=== PATIENT | female | born 1930 | race Caucasian/White ===

== ENCOUNTER 2017-01-24 16:22 | Inpatient (IN) ==
--- NOTE | 2017-01-24 16:46 | Emergency Department Note ---
Weakness HPI - General Chief complaint: Stroke Symptoms Stated complaint: weakness, altered mental status, stroke s/sx Time Seen by Provider: 01/24/17 16:43 Source: patient, EMS Mode of arrival: EMS Limitations: no limitations - History of Present Illness HPI Narrative: Patient had an episode of generalized weakness. Today, describes her as being slumped forward on the commode, they helped her back to the bed in a chair, which is not talking very much. She does state that she had a headache before this event, she denies headache now, has had no nausea, vomiting. She currently is on Bactrim for urinary tract infection and recently has had decreased appetite, not eating very much. She does take metformin for her diabetes. Denies taking insulin. No fevers today but then her legs were just like Jell-O, she had to be supported by family to get to the bed that, medics also reported decrease oxygen to saturation of 80% on seen, they do seem to be normal now on room air. She does have a history of atrial fibrillation, no history of stroke. She is on Coumadin.No history of one sided weakness no history of slurred speech, but she had decreased level of mentationfor about an hour or so earlier today. This seemed to have resolved after ambulance brought her to the emergency room. - Related Data Home Medications Medication Instructions Recorded Confirmed Atorvastatin [Lipitor] 20 mg PO HS 09/07/16 09/07/16 Digoxin [Lanoxin] 125 mcg PO DAILY 09/07/16 09/07/16 HYDROcodone/APAP 5/325MG [[place] 1 tab PO Q4HP PRN 09/07/16 09/07/16 5/325Mg] Magnesium Oxide [Magnesium] 250 mg PO DAILY 09/07/16 09/07/16 Metoprolol Tartrate 50 mg PO BID 09/07/16 09/07/16 Sulfamethoxazole/Trimethoprim 1 each PO BID 09/07/16 09/07/16 [Bactrim Ds Tablet] Tolterodine Tartrate [Detrol LA] 4 mg PO DAILY 09/07/16 09/07/16 Warfarin [Coumadin] 6 mg PO DAILY 09/07/16 09/07/16 metFORMIN [Glucophage] 500 mg PO TIDCC 09/07/16 09/07/16 Previous Rx's Medication Instructions Recorded HYDROcodone/APAP 5/325MG [[place] 1 tab PO Q4HP PRN #20 tablet 09/07/16 5/325Mg] Allergies Allergy/AdvReac Type Severity Reaction Status Date / Time No Known Drug Allergies Allergy Verified 01/24/17 16:29 Review of Systems All systems ED: reviewed and negative except as stated. Past Medical History - Past Medical History Source: nursing notes reviewed Medical history: Reports: arthritis, atrial fibrillation, diabetes, hypertension , other (uTI and compression fracture) Surgical history ED: Reports: appendectomy, cholecystectomy, hysterectomy, knee replacement, pacemaker/AICD - Social History smoking status: Never smoker Alcohol use: Reports: Rarely Physical Exam - General Limitations: no limitations General appearance: alert, in no apparent distress - Head Head exam: atraumatic, normocephalic - Eye Eye exam: Present: normal appearance, PERRL, EOMI - ENT ENT exam: normal exam, normal oropharynx, mucous membranes moist, TM's normal bilaterally - Neck Neck exam: Present: normal inspection, full ROM - Chest Chest inspection: Present: normal inspection, symmetric chest wall rise - Respiratory Respiratory exam: Present: normal lung sounds bilaterally. Absent: respiratory distress - Cardiovascular Cardiovascular exam: Present: tachycardia, irregular rhythm, normal heart sounds - Abdominal Exam Abdominal exam: Present: soft, normal bowel sounds. Absent: distention, tenderness, guarding - Extremities Exam Extremities exam: Present: normal inspection, full ROM. Absent: tenderness - Back Exam Back exam: Present: normal inspection. Absent: CVA tenderness (R), CVA tenderness (L) - Neurological Exam Neurological exam: Present: alert, oriented X3 - Psychiatric Psychiatric exam: Present: other (appears weak in general) - Skin Skin exam: Present: warm, dry, intact. Absent: rash Course Vital Signs Temperature 98.0 F 01/24/17 16:23 Pulse Rate 120 H 01/24/17 16:23 Respiratory Rate 20 01/24/17 16:23 Blood Pressure 121/77 01/24/17 16:23 Pulse Oximetry (%) 95 01/24/17 16:23 Temperature 98.7 F 01/24/17 16:52 Pulse Rate 119 H 01/24/17 18:01 Respiratory Rate 23 H 01/24/17 18:01 Blood Pressure 133/90 01/24/17 18:01 Pulse Oximetry (%) 95 01/24/17 18:01 Weakness - MDM Narrative Medical decision making narrative: Chest x-ray being read as pneumonia, left-sided, she also does have a urinary tract infection and coupled with her syncope or near syncope. This would warrant hospital admission. The. CT scan was negative for acute hemorrhage or stroke, his CBC was normal, however, her urine was still cloudy and contaminated. This was a catheter urine. Final diagnosis is #1. Resistant urinary tract infection. #2. Near syncopal episode with generalized weakness. #3. Pneumonia, left-sided. #4. History of atrial flutter/fibrillation with pacemaker in place. - Lab Data Result diagrams: 01/24/17 16:57 01/24/17 16:57 Lab Results 01/24/17 01/24/17 01/24/17 Range/Units 16:57 16:57 16:57 WBC 8.8 (4.5-11.0) K/mcL RBC 4.51 (4.00-5.20) M/mcL Hgb 13.4 (12.0-15.0) g/dL Hct 40.1 (36.0-48.0) % MCV 88.8 (80.0-100.0) fL MCH 29.7 (26.0-34.0) pg MCHC 33.4 (31.0-36.0) g/dL RDW 15.6 H (11.5-14.5) % Plt Count 273 (140-440) K/mcL MPV 8.4 (7.4-10.4) fL Gran % 74.2 (38.0-78.0) % Lymph % (Auto) 15.5 (15.5-49.0) % Snyder % (Auto) 8.8 (1.0-12.0) % Eos % (Auto) 1.0 (0.0-7.0) % Baso % (Auto) 0.5 (0.0-2.0) % Gran # 6.5 (1.8-8.0) K/mcL Lymph # 1.4 L (1.5-4.8) K/mcL Snyder # 0.8 (0.1-0.9) K/mcL Eos # 0.1 (0.0-0.7) K/mcL Baso # 0 (0.0-0.3) K/mcL ESR 40 H (0-20) mm/hr PT 29.2 H (11.9-14.5) sec INR 2.6 H (0.9-1.1) Sodium 135 (133-145) mmol/L Potassium 5.3 H (3.3-5.1) mmol/L Chloride 96 (96-108) mmol/L Carbon Dioxide 20 L (22-30) mmol/L Anion Gap 19.0 H (8-16) BUN 42 H (8-23) mg/dl Creatinine 1.2 H (0.6-1.1) mg/dl GFR Calculation 41 Glucose 116 H (70-105) mg/dL Calcium 10.9 H (8.6-10.4) mg/dl Total Bilirubin 0.3 (0.0-1.0) mg/dL AST 12 (0-37) U/l ALT 8 (0-40) U/l Alkaline Phosphatase 129 H (39-117) U/L CK-MB (CK-2) 2.5 (0-2.9) ng/ml Troponin T (0-0.03) ng/ml C-Reactive Protein 7.0 H (0.0-0.8) mg/dl Total Protein 7.3 (5.9-8.4) gm/dL Albumin 3.8 (3.2-5.2) gm/dL Globulin 3.5 (2.2-3.7) gm/dL Albumin/Globulin Ratio 1.1 (1.0-2.3) Urine Color Urine Appearance Urine pH (5.0-9.0) Ur Specific [place] (1.000-1.035) Urine Protein (NEG) mg/dL Urine Glucose (UA) (NEG) mg/dL Urine Ketones (NEG) mg/dL Urine Occult Blood (<0.03) mg/dL Urine Nitrate (NEG) Urine Bilirubin (NEG) mg/dL Urine Urobilinogen (NEG) mg/dL Ur Leukocyte Esterase (NEG) /uL Urine RBC (0-1) /hpf Urine WBC (0-4) /hpf Ur Squamous Epith Cells (0-4) /hpf Urine Bacteria (0) /hpf Ur Culture Indicated? 01/24/17 01/24/17 Range/Units 16:57 17:17 WBC (4.5-11.0) K/mcL RBC (4.00-5.20) M/mcL Hgb (12.0-15.0) g/dL Hct (36.0-48.0) % MCV (80.0-100.0) fL MCH (26.0-34.0) pg MCHC (31.0-36.0) g/dL RDW (11.5-14.5) % Plt Count (140-440) K/mcL MPV (7.4-10.4) fL Gran % (38.0-78.0) % Lymph % (Auto) (15.5-49.0) % Snyder % (Auto) (1.0-12.0) % Eos % (Auto) (0.0-7.0) % Baso % (Auto) (0.0-2.0) % Gran # (1.8-8.0) K/mcL Lymph # (1.5-4.8) K/mcL Snyder # (0.1-0.9) K/mcL Eos # (0.0-0.7) K/mcL Baso # (0.0-0.3) K/mcL ESR (0-20) mm/hr PT (11.9-14.5) sec INR (0.9-1.1) Sodium (133-145) mmol/L Potassium (3.3-5.1) mmol/L Chloride (96-108) mmol/L Carbon Dioxide (22-30) mmol/L Anion Gap (8-16) BUN (8-23) mg/dl Creatinine (0.6-1.1) mg/dl GFR Calculation Glucose (70-105) mg/dL Calcium (8.6-10.4) mg/dl Total Bilirubin (0.0-1.0) mg/dL AST (0-37) U/l ALT (0-40) U/l Alkaline Phosphatase (39-117) U/L CK-MB (CK-2) (0-2.9) ng/ml Troponin T 0.02 (0-0.03) ng/ml C-Reactive Protein (0.0-0.8) mg/dl Total Protein (5.9-8.4) gm/dL Albumin (3.2-5.2) gm/dL Globulin (2.2-3.7) gm/dL Albumin/Globulin Ratio (1.0-2.3) Urine Color Brooke Urine Appearance Cloudy Urine pH 5.0 (5.0-9.0) Ur Specific [place] 1.014 (1.000-1.035) Urine Protein 100 A (NEG) mg/dL Urine Glucose (UA) Negative (NEG) mg/dL Urine Ketones Neg (NEG) mg/dL Urine Occult Blood >=1.0 A (<0.03) mg/dL Urine Nitrate Neg (NEG) Urine Bilirubin Neg (NEG) mg/dL Urine Urobilinogen Neg (NEG) mg/dL Ur Leukocyte Esterase 75 A (NEG) /uL Urine RBC > 182 H (0-1) /hpf Urine WBC 60 H (0-4) /hpf Ur Squamous Epith Cells 0 (0-4) /hpf Urine Bacteria Mod A (0) /hpf Ur Culture Indicated? Yes Disposition Disposition: Xfer As Inpt ([facility]) Condition: Fair Referrals: Avis Kincaid MD [Primary Care Provider] -
[2017-01-24] MEDS ORDERED: LACTATED RINGERS 1,000 ML IV ONE (16:50)
[2017-01-24 17:36] LABS: Basophils # (Auto) 0 K/mcL (0.0-0.3); Basophils % (Auto) 0.5 % (0.0-2.0); Eosinophils # (Auto) 0.1 K/mcL (0.0-0.7); Granulocytes % (Auto) 74.2 % (38.0-78.0); Lymphocytes # (Auto) 1.4 K/mcL (1.5-4.8); Lymphocytes % (Auto) 15.5 % (15.5-49.0); Mean Cell Volume 88.8 fL (80.0-100.0); Mean Corpuscular HGB Conc 33.4 g/dL (31.0-36.0); Mean Corpuscular Hemoglobin 29.7 pg (26.0-34.0); Monocytes # (Auto) 0.8 K/mcL (0.1-0.9); Monocytes % (Auto) 8.8 % (1.0-12.0); Platelet Count 273 K/mcL (140-440); RBC 4.51 M/mcL (4.00-5.20); Red Cell Distribution Width 15.6 % (11.5-14.5)
--- NOTE | 2017-01-24 17:47 | XRay Report ---
CLINICAL INFORMATION: Headache. Weakness. TECHNIQUE: AP semierect chest x-ray COMPARISON: Previous examination dated 06/19/2010 FINDINGS: No change in left transvenous pacemaker leads. Dense left basilar consolidation of left pleural fluid. Appearance is consistent with pneumonia. Right lung is negative. Heart size is within normal limits considering AP positioning. There is no pulmonary congestion and no pulmonary edema. IMPRESSION: Left basilar consolidation and left pleural fluid. Findings are consistent with pneumonia. Interpreted and Authenticated by: Robbie Willis 01/24/17
[2017-01-24 17:54] LABS: Appearance,Urine CLOUDY; Bacteria,Urine MOD /hpf (0); Bilirubin,Urine NEG (NEG); Color,Urine AMBER; Glucose,Urine (UA) NEGATIVE (NEG); Leukocyte Esterase,Urine 75 /uL (NEG); Nitrate,Urine NEG (NEG); Protein,Urine 100 mg/dL (NEG); Specific Gravity,Urine 1.014 (1.000-1.035); Urine Blood >=1.0 mg/dL (<0.03); Urine RBC > 182 /hpf (0-1); Urine Squamous Epithelial Cell 0 /hpf (0-4); Urine WBC 60 /hpf (0-4); Urobilinogen,Urine NEG (NEG)
[2017-01-24 18:01] LABS: Creatine Kinase MB 2.5 ng/ml (0-2.9)
[2017-01-24 18:02] LABS: ALT/SGPT 8 U/l (0-40); Albumin 3.8 gm/dL (3.2-5.2); Albumin/Globulin Ratio 1.1 (1.0-2.3); Alkaline Phosphatase 129 U/L (39-117); Blood Urea Nitrogen 42 mg/dl (8-23)
[2017-01-24] MEDS ORDERED: cefTRIAXone 1 GM in DEXTROSE 5% IN WATER 50 ML IV ONE (18:02)
[2017-01-24 18:24] LABS: Erythrocyte Sedimentation Rate 40 mm/hr (0-20)
--- NOTE | 2017-01-24 19:25 | Internal Med History&Physical ---
Medical - H&P: HPI Patient information: Note initiated : 01/24/17 at 7:25 pm Service Date, if different from initiated Date: [] Patient: Debby Perez 86 y/o F admitted on for weakness, altered mental status, stroke s/sx. Chief Complaint: [] Chief complaint: weakness ,depressed level of consciousness, dysuria History of present illness: Ms. Perez is a 86 year old female is sent to emergency room by her and daughters. hey report that she really has not been doing very well since November of this year, when she was admitted to [facility] with compression fractures of her spine. She apparently underwent several vertebral plasty procedures, and ultimately was sent to [place] for transition care. She improved somewhat, but then apparently was diagnosed with urinary tract infection about 4 days ago, and was started on Bactrim. Her family says she really has just not been doing well since then, and has had decreased oral intake and increased fatigue This evening she was walking to dinner with her family's assistance, and suddenly just could not stand up anymore, and slid down to the floor. They report she sort of slumped over and they really couldn' t get much of a response out of her for several minutes. They then called 911. The ER M.D. reports that the ambulance crew set her initial O2 saturation was 80 % on room air. However this increased to normal by the time of arrival at the ER. ER evaluation shows pyuria and also suggestive of a left base pneumonia. She did have a CT scan of her brain which did not show any acute findings. the patient is awake, but often looks to her for answers, and seems very fatigued. She says she has not been able to get warm for the last couple of days. She also had a significant headache earlier today. She has had a cough for the last 1-2 months, which is nonproductive. Her reports every now and then she grabs the left side of her abdomen and complains of sharp pain. She reports occasional palpitations and occasional nausea. Her reports that she has alternating diarrhea and constipation, with her last bowel movement yesterday. Otherwise, they are unaware of any fever blurry vision or double vision, sinus or ear pain sore throat or swollen lymph nodes She denies overt chest pain, vomiting, rectal bleeding. She does report difficulty urinating recently. past medical history: -Admission to [facility] on December 04, 2016: istory of osteopenia and multiple compression fractures and multiple vertebral plasty's. Worsening bladder control since then. Workup also revealed severe spinal stenosis. -tachybradycardia syndrome, status post pacemaker placement with Dr. Richie Owusu Type 2 diabetes, generally controlled Hyperlipidemia Hypertension Chronic back pain Recent diagnosis urinary tract infection current medications: according to her 's list: Forteo subcutaneous every morning2 months Calcitonin nasal spray daily Bactrim DS 1 by mouth twice a day Metoprolol 50 mg twice a day Warfarin 6 mg, titrate as needed Detrol LA 4 mg daily at bedtime Digoxin 0.125 mg daily Lipitor 20 mg every afternoon Metformin 500 mg 3 times a day Magnesium 250 mg twice a day Numerous supplements: Including vitamin E, B12, B complex, oral chelation EDTA lecithin, flax oil, fish oil, vitamin C ginkgo biloba 60 mg daily, chromium, co- enzyme [id number] 1000 mg, glucosamine, vitamin D 1000 units daily, curcumin Allergies: No known drug allergies Family history: Mother and aunt both had stroke. Father had heart and/or lung disease. Social history: The patient lives with her ,in [place], [place], and is usually ambulatory, but has been quite sedentary over the last 1-2 months. She denies history of tobacco, alcohol, drug use. She has 4 children who live in the area. Medical - H&P: Meds Home Medications Medication Instructions Recorded Confirmed Type Atorvastatin [Lipitor] 20 mg PO HS 09/07/16 09/07/16 History Digoxin [Lanoxin] 125 mcg PO DAILY 09/07/16 09/07/16 History HYDROcodone/APAP 5/325MG [[place] 1 tab PO Q4HP PRN 09/07/16 09/07/16 History 5/325Mg] HYDROcodone/APAP 5/325MG [[place] 1 tab PO Q4HP PRN #20 tablet 09/07/16 Rx 5/325Mg] Magnesium Oxide [Magnesium] 250 mg PO DAILY 09/07/16 09/07/16 History Metoprolol Tartrate 50 mg PO BID 09/07/16 09/07/16 History Sulfamethoxazole/Trimethoprim 1 each PO BID 09/07/16 09/07/16 History [Bactrim Ds Tablet] Tolterodine Tartrate [Detrol LA] 4 mg PO DAILY 09/07/16 09/07/16 History Warfarin [Coumadin] 6 mg PO DAILY 09/07/16 09/07/16 History metFORMIN [Glucophage] 500 mg PO TIDCC 09/07/16 09/07/16 History Allergies Allergy/AdvReac Type Severity Reaction Status Date / Time No Known Drug Allergies Allergy Verified 01/24/17 16:29 Medical - H&P: Exam - Constitutional Vitals: Temp Pulse Resp BP Pulse Ox 98.7 F 71 23 H 133/72 95 01/24/17 16:52 01/24/17 18:46 01/24/17 18:46 01/24/17 18:46 01/24/17 18:46 on exam, she is a frail-appearing elderly female who is a bit sleepy, but is able to answer most questions. Head:Normocephalic, atraumatic. Eyes: PERRLA, EOMI, anicteric. IOLs are present. conjunctiva normal. ears:TMs and canals are clear. pharynx: Appears clear. Teeth are in good repair. Mucosa is dry. neck: Appears supple, without obvious lymphadenopathy, JVD, thyromegaly, bruits. Cardiac: Shows an irregularly irregular rhythm, without obvious murmurs, rubs, gallops. Lungs: Have somewhat decreased breath sounds at the bases, but otherwise are clear, without obvious rales, rhonchi, wheezes. Abdomen: Soft and nontender. Bowel sounds are active. There are no obvious masses. Extremities: Show no cyanosis, clubbing, edema. Pulses are intact. Neurologic exam: The patient is awake, but somewhat sleepy. She does follow commands. She appears fully oriented. Cranial nerves are grossly intact. Motor exam is grossly nonfocal. Skin: Shows no obvious rashes or other worrisome lesions. Medical - H&P: Reslt - Labs CBC & Chem 7: 01/24/17 16:57 01/24/17 16:57 Labs: Short CBC 01/24/17 Range/Units 16:57 WBC 8.8 (4.5-11.0) K/mcL Hgb 13.4 (12.0-15.0) g/dL Hct 40.1 (36.0-48.0) % Plt Count 273 (140-440) K/mcL BMP 01/24/17 16:57 Sodium 135 Potassium 5.3 H Chloride 96 Carbon Dioxide 20 L BUN 42 H Creatinine 1.2 H Glucose 116 H Calcium 10.9 H Cardiac Enzymes 01/24/17 01/24/17 Range/Units 16:57 16:57 CK-MB (CK-2) 2.5 (0-2.9) ng/ml Troponin T 0.02 (0-0.03) ng/ml Liver Function 01/24/17 Range/Units 16:57 Total Bilirubin 0.3 (0.0-1.0) mg/dL AST 12 (0-37) U/l ALT 8 (0-40) U/l Alkaline Phosphatase 129 H (39-117) U/L Albumin 3.8 (3.2-5.2) gm/dL Urine 01/24/17 Range/Units 17:17 Urine Color Brooke Urine Appearance Cloudy Urine pH 5.0 (5.0-9.0) Ur Specific [place] 1.014 (1.000-1.035) Urine Protein 100 A (NEG) mg/dL Urine Glucose (UA) Negative (NEG) mg/dL urinalysis shows 100 mg of protein 75 leukocyte esterase, greater than 182 red blood cells, 60 white blood cells, moderate bacteria CBC differentialis essentially normal, although absolute lymphocyte count is a bit low at 1400. sedimentation rate is high at 40 Pro time is 29, with INR of 2.6 anion gap is elevated at 19 Total calcium is elevated at 10.9, alkaline phosphatase elevated at 129 EKG shows atrial fibrillation at a rate of 124, right ventral branch block, left posterior fascicular block head CT is reported as showing no acute disease. chest x-ray shows dense left basilar consolidation with left pleural fluid consistent with pneumonia. CT scan from December 03, 2016: Shows vertebroplasty changes of T10, T12, L2, L3, L4. Severe spinal canal stenosis at L3-4 and L4-5 Vertebral body compression fracture at L5 Medical - H&P: A/P (1) SIRS (systemic inflammatory response syndrome) Current visit: Yes Status: Acute (2) Spinal stenosis at L4-L5 level Current visit: Yes Status: Chronic (3) Compression fracture Current visit: Yes Status: Chronic (4) Atrial fibrillation Current visit: Yes Status: Chronic (5) Anticoagulation adequate with anticoagulant therapy Current visit: Yes Status: Chronic (6) Acute renal failure Current visit: Yes Status: Acute (7) Type 2 diabetes mellitus Current visit: Yes Status: Chronic (8) Altered mental status Current visit: Yes Status: Acute (9) Pneumonia Current visit: Yes Status: Acute (10) Compression fracture Current visit: No Status: Chronic - Narrative A/P Narrative: #1. Neurologic. patient presents with altered mental status, which is likely due to dehydration and general failure to thrive over the last [address] is negative. -Continue to monitor. -it is unclear if some of her current decline may be due to intolerance of Bactrim. #2. Infectious disease. patient meets criteria for SIRS syndrome. She appears to have both pneumonia and ongoing urinary tract infection. -admit for IV fluids, IV antibiotics. Empiric coverage with Zosyn and Zithromax to cover lungs and bladder. -blood, urine, and sputum cultures have been ordered. #3.pulmonary. Apparent pneumonia. she did initially have hypoxia, but this has improved. Antibiotics as above. Add bronchodilators, oxygen, incentive spirometry as needed. #4.endocrine. -type 2 diabetes. Metformin is on hold, regarding her acute renal insufficiency. Cover with sliding scale insulin, Accu-Cheks. -osteoporosis. Numerous compression fractures, status post vertebral plasty's. Continue Forteo, calcitonin, calcium vitamin D. The patient apparently does not tolerate narcotics. Continue Tylenol. Add tramadol or Lidoderm or muscle relaxers if needed. #5. Renal. patient presents with acute renal insufficiency. This is likely due to dehydration as well as possible ongoing urinary tract infection, and possible Bactrim side effect, and injury due to metformin. -IV fluids. Follow labs. -hyperkalemia. Follow. -hypercalcemia, recheck after hydration. -Metabolic acidosis likely aggravated by metformin. 36. Pain. The patient does have chronic back pain, as noted above. She also reportedly has occasional severe sharp left-sided abdominal pain. I suspect this is due to nerve root irritation from numerous compression fractures , but we could consider abdominal x-ray, to rule out constipation. #7. Cardiac. -atrial fibrillation. 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 Continue metoprolol ,digoxin as tolerated. check digoxin level. -INR is therapeutic. Continue warfarin. -hypertension.Controlled. Continue metoprolol. #8.hyperlipidemia. #9. DVT prophylaxis: Continue warfarin. Add SCDs. 310. CODE STATUS:Full code. The patient and her family note that she does not have a living will. Her has her medical power of employment law attorney. They would like her to be full code for now. This visit has taken approximately 75 minutes, to obtain and review records from [facility], review her case with the LISA Howell, interview the patient and her family, examined her, and write orders.
[2017-01-24] MEDS ORDERED: NALOXONE HCL 0.4 MG/ML VIAL IV PRN (19:53)
[2017-01-24] MEDS ORDERED: MAGNESIUM HYDROXIDE 30 ML ORAL.SUSP PO PRN (19:53)
[2017-01-24] MEDS ORDERED: PIPERACILLIN SODIUM/TAZOBACTAM 3.375 GM in DEXTROSE 5% IN WATER 50 ML IV SCH (19:53)
[2017-01-24] MEDS ORDERED: DEXTROSE 50% 50 ML VIAL IV PRN (19:53)
[2017-01-24] MEDS ORDERED: DOCUSATE SODIUM 100 MG CAPSULE PO PRN (19:53)
[2017-01-24] MEDS ORDERED: ONDANSETRON 4 MG/2 ML VIAL IV PRN (19:53)
[2017-01-24] MEDS ORDERED: HYDROcodone/APAP 5/325MG TABLET PO PRN (19:53)
[2017-01-24] MEDS ORDERED: CALCIUM CARBONATE 500 MG TAB.CHEW CHEWED PRN (19:53)
[2017-01-24] MEDS ORDERED: ALBUTEROL SULFATE 2.5 MG/3 ML NEBULIZER NEB PRN (19:53)
[2017-01-24] MEDS: 0.45 % SODIUM CHLORIDE 1,000 ML IV SCH (19:56)
[2017-01-24] MEDS: ACETAMINOPHEN 325 MG TABLET PO PRN (21:32)
[2017-01-24] MEDS: INSULIN LISPRO 1 UNIT/0.01 ML UNIT SQ SCH (21:33)
[2017-01-24] MEDS: METOPROLOL TARTRATE 50 MG TABLET PO SCH (21:33)
[2017-01-24] MEDS: 0.9 % SODIUM CHLORIDE 10 ML SYRINGE IV SCH (22:02)
[2017-01-24] MEDS: AZITHROMYCIN 500 MG in DEXTROSE 5% IN WATER 250 ML IV SCH (22:16)
[2017-01-25] MEDS: ALBUTEROL SULFATE 2.5 MG/3 ML NEBULIZER NEB SCH ×4 (01:29→20:00)
[2017-01-25] MEDS ORDERED: PIPERACILLIN SODIUM/TAZOBACTAM 2.25 GM VIAL IV ONE (03:05)
[2017-01-25] MEDS: PIPERACILLIN SODIUM/TAZOBACTAM 2.25 GM in DEXTROSE 5% IN WATER 50 ML IV SCH ×4 (03:08→21:58)
[2017-01-25 05:41] LABS: Basophils # (Auto) 0 K/mcL (0.0-0.3); Basophils % (Auto) 0.6 % (0.0-2.0); Eosinophils # (Auto) 0.2 K/mcL (0.0-0.7); Granulocytes % (Auto) 64.3 % (38.0-78.0); Lymphocytes # (Auto) 1.5 K/mcL (1.5-4.8); Lymphocytes % (Auto) 20.3 % (15.5-49.0); Mean Corpuscular HGB Conc 34.7 g/dL (31.0-36.0); Mean Corpuscular Hemoglobin 31.9 pg (26.0-34.0); Monocytes # (Auto) 0.9 K/mcL (0.1-0.9); Monocytes % (Auto) 11.8 % (1.0-12.0); Platelet Count 208 K/mcL (140-440); RBC 3.53 M/mcL (4.00-5.20); Red Cell Distribution Width 15.3 % (11.5-14.5)
[2017-01-25 06:04] LABS: ALT/SGPT 7 U/l (0-40); Albumin 3.4 gm/dL (3.2-5.2); Albumin/Globulin Ratio 1.4 (1.0-2.3); Alkaline Phosphatase 101 U/L (39-117); Bilirubin,Direct < 0.2 mg/dL (0.0-0.3); Blood Urea Nitrogen 35 mg/dl (8-23); Gamma Glutamyl Transpeptidase 30 U/L (5-36); Magnesium 1.1 mg/dL (1.6-2.5); Uric Acid 6.4 mg/dL (2.5-8.0)
[2017-01-25] MEDS: 0.9 % SODIUM CHLORIDE 10 ML SYRINGE IV SCH ×3 (06:24→21:59)
[2017-01-25] MEDS: 0.45 % SODIUM CHLORIDE 1,000 ML IV SCH ×2 (06:59→09:06)
[2017-01-25] MEDS: INSULIN LISPRO 1 UNIT/0.01 ML UNIT SQ SCH ×4 (07:13→20:36)
[2017-01-25] MEDS ORDERED: LIDOCAINE PATCH TOPICAL PRN (08:45)
[2017-01-25] MEDS ORDERED: METOPROLOL TARTRATE 50 MG PO SCH (09:00)
[2017-01-25] MEDS ORDERED: MAGNESIUM SULFATE 8.12 MEQ in DEXTROSE 5% IN WATER 50 ML IV ONE (09:00)
[2017-01-25] MEDS: MAGNESIUM OXIDE 400 MG TABLET PO SCH (09:07)
[2017-01-25] MEDS: CALCIUM W/VIT D3 500 MG TABLET PO SCH (09:07)
[2017-01-25] MEDS: METOPROLOL TARTRATE 50 MG TABLET PO SCH ×2 (09:07→20:52)
[2017-01-25] MEDS: VITAMIN D3 1,000 UNIT TABLET PO SCH ×2 (09:07→20:52)
[2017-01-25] MEDS: VITAMIN B COMPLEX 1 CAPSULE PO SCH (09:07)
[2017-01-25] MEDS: NEUTRA PHOS 1 PACKET PO SCH ×2 (11:05→20:52)
--- NOTE | 2017-01-25 11:06 | Internal Med Progress Note ---
Medical - PN: Subj Patient information: Note initiated : 01/25/17 at 11:06 am Service Date, if different from initiated Date: [] Patient: Debby Perez 86 y/o F admitted on 01/24/17 for weakness, altered mental status, stroke s/sx. Chief Complaint: [] Interval history: January 24, 2017:Chief complaint: weakness ,depressed level of consciousness, dysuria History of present illness: Ms. Perez is a 86 year old female is sent to emergency room by her and daughters. hey report that she really has not been doing very well since November of this year, when she was admitted to [facility] with compression fractures of her spine. She apparently underwent several vertebral plasty procedures, and ultimately was sent to [place] for transition care. She improved somewhat, but then apparently was diagnosed with urinary tract infection about 4 days ago, and was started on Bactrim. Her family says she really has just not been doing well since then, and has had decreased oral intake and increased fatigue This evening she was walking to dinner with her family's assistance, and suddenly just could not stand up anymore, and slid down to the floor. They report she sort of slumped over and they really couldn' t get much of a response out of her for several minutes. They then called 911. The ER M.D. reports that the ambulance crew set her initial O2 saturation was 80 % on room air. However this increased to normal by the time of arrival at the ER. ER evaluation shows pyuria and also suggestive of a left base pneumonia. She did have a CT scan of her brain which did not show any acute findings. the patient is awake, but often looks to her for answers, and seems very fatigued. She says she has not been able to get warm for the last couple of days. She also had a significant headache earlier today. She has had a cough for the last 1-2 months, which is nonproductive. Her reports every now and then she grabs the left side of her abdomen and complains of sharp pain. She reports occasional palpitations and occasional nausea. Her reports that she has alternating diarrhea and constipation, with her last bowel movement yesterday. January 25, 2017: today, the patient is feeling quite a bit better. granddaughter and Staff reports that she was able to walk to the shower today, and also ate a pretty large breakfast. The patient reports she still feels significant fatigue , but definitely better than yesterday. -she denies significant current pain. She did take Tylenol with breakfast. -she does not report any obvious bleeding, regarding her elevated INR. -bNP was quite elevated yesterday but the patient denies significant shortness of breath.- -Otherwise, the patient denies subjective fever or chills, chest pain or palpitations, shortness of breath or significant cough. She denies current abdominal pain, nausea or vomiting or diarrhea She continues to have urinary frequency and incontinence. - Constitutional Vitals: Vital Signs Temp Pulse Resp BP Pulse Ox 97.2 F 77 10 L 143/83 94 01/25/17 06:51 01/25/17 07:32 01/25/17 07:32 01/25/17 06:51 01/25/17 07:47 Period Temp Pulse Resp BP Sys/[place] Pulse Ox Last 24 Hr 97.2 F-98.7 F 71-80 10-24 123-143/72-83 94-97 Intake and Output 01/24/17 01/25/17 01/25/17 21:59 05:59 13:59 Intake Total 50 / 1100 1350 / 1350 290 / 290 Output Total 676 / 676 Balance 50 / 1100 1350 / 1350 -386 / -386 Weight 112 lb Intake & Output: Intake & Output 01/24/17 01/25/17 01/25/17 21:59 05:59 13:59 Intake Total 50 / 1100 1350 / 1350 290 / 290 Output Total 676 / 676 Balance 50 / 1100 1350 / 1350 -386 / -386 Weight 112 lb Intake: IV 50 / 50 1250 / 1250 50 / 50 Sodium Chloride 0.45% 1, 1000 / 1000 000 ml @ 125 mls/hr IV . Q8H [facility] Rx#:[id number] Zithromax 500 mg In 250 / 250 Dextrose 5% in Water 250 ml @ 250 mls/hr IV DAILY [facility] Rx#:[id number] Zosyn 2.25 gm In Dextrose 50 / 50 5% in Water 50 ml @ 100 mls/hr IV Q6H [facility] Rx#: [id number] Zosyn 3.375 gm In 50 / 50 Dextrose 5% in Water 50 ml @ 100 mls/hr IV Q6H [facility] Rx#:[id number] Oral 100 / 100 240 / 240 Output: Void Amount 675 / 675 # of times incontinent of 1 / 1 urine Other: Meal Soup and crackers Breakfast Percent of Meal Consumed 100% 50% Feeding Ability Assist with Tray Set Up Independent on exam, she is a frail appearing elderly female, in no acute distress. She is much more interactive this morning. Neck shows obvious JVD or lymphadenopathy. Cardiac exam:Shows a fairly regular rhythm with normal rate. Lungs: Show decreased breath soundsat the left base and otherwise lungs are clear, without obvious rales rhonchi, wheezes. Abdomen: Is soft and nontender with normal bowel sounds. Extremities: Show no edema. Neurologic: the patient is awake and alert. neuro exam is grossly nonfocal. Medical - PN: Obj Da - Labs CBC & Chem 7: 01/25/17 04:30 01/25/17 04:30 Labs: Abnormal Lab Results 01/25/17 01/25/17 01/25/17 04:30 04:30 04:30 RBC 3.53 L Hgb 11.3 L Hct 32.5 L RDW 15.3 H PT 34.5 H INR 3.3 H Carbon Dioxide 21 L BUN 35 H Phosphorus 2.3 L Magnesium 1.1 L january 25:Urine culture is growing gram-negative bacilli and ID pending January 24, 2017: BNP elevated at 2204 urinalysis shows 100 mg of protein 75 leukocyte esterase, greater than 182 red blood cells, 60 white blood cells, moderate bacteria CBC differential is essentially normal, although absolute lymphocyte count is a bit low at 1400. sedimentation rate is high at 40 Pro time is 29, with INR of 2.6 anion gap is elevated at 19 Total calcium is elevated at 10.9, alkaline phosphatase elevated at 129 EKG shows atrial fibrillation at a rate of 124, right ventral branch block, left posterior fascicular block head CT is reported as showing no acute disease. chest x-ray shows dense left basilar consolidation with left pleural fluid consistent with pneumonia. CT scan from December 03, 2016: Shows vertebroplasty changes of T10, T12, L2, L3, L4. Severe spinal canal stenosis at L3-4 and L4-5 Vertebral body compression fracture at L5 Meds: Medications Acetaminophen (Tylenol) 650 mg PO Q6HP PRN PRN Reason: PAIN/FEVER > 101 Last Admin: 01/24/17 21:32 Dose: 650 mg Acetaminophen/Hydrocodone Bitart ([place] 5/325mg) 1 tab PO Q4HP PRN PRN Reason: Pain Albuterol Sulfate (Ventolin) 2.5 mg NEB Q2HP PRN PRN Reason: Shortness Of Breath Albuterol Sulfate (Ventolin) 2.5 mg NEB Q6HRT [facility] Last Admin: 01/25/17 07:27 Dose: 2.5 mg Atorvastatin Calcium (Lipitor) 20 mg PO HS [facility] Calcitonin [place] (Miacalcin) 1 spray NS DAILY [facility] Calcium Carbonate/Glycine (Tums) 1,000 mg CHEWED Q4HP PRN PRN Reason: Dyspepsia Calcium/Vitamin D (Calcium W/Vit D3) 500 mg PO DAILY [facility] Last Admin: 01/25/17 09:07 Dose: 500 mg Dextrose (Dextrose 50%) 0 ml IV UD PRN PRN Reason: Hypoglycemia Diagnostic Test (Pha) (Accu-Chek) 1 each FS ACHS [facility] Last Admin: 01/25/17 07:13 Dose: 1 each Docusate Sodium (Colace) 100 mg PO BID PRN PRN Reason: Constipation Azithromycin 500 mg/ Dextrose 250 mls @ 250 mls/hr IV DAILY [facility] Stop: 01/26/17 09:59 Last Infusion: 01/24/17 23:20 Dose: Infused Piperacillin Sod/Tazobactam (Sod 2.25 gm/ Dextrose) 50 mls @ 100 mls/hr IV Q6H [facility] Last Infusion: 01/25/17 09:40 Dose: Infused Sodium Chloride (Sodium Chloride 0.45%) 1,000 mls @ 50 mls/hr IV .Q20H [facility] Last Admin: 01/25/17 09:06 Dose: Not Given Insulin Human Lispro (Humalog) 0 unit SQ ACHS [facility] PRN Reason: Protocol Last Admin: 01/25/17 07:13 Dose: Not Given Lidocaine (Lidoderm) 0 patch TOPICAL DAILY@1000 PRN PRN Reason: Pain Magnesium Hydroxide (Milk Of Magnesia) 30 ml PO DAILYP PRN PRN Reason: Constipation Magnesium Oxide (Magnesium Oxide) 400 mg PO DAILY [facility] Last Admin: 01/25/17 09:07 Dose: 400 mg Metoprolol Tartrate (Lopressor) 50 mg PO BID [facility] Last Admin: 01/25/17 09:07 Dose: 50 mg Naloxone HCl (Narcan) 0.1 mg IV Q2MIN PRN PRN Reason: Opiate Reversal Ondansetron HCl (Zofran) 4 mg IV Q6HP PRN PRN Reason: Nausea And Vomiting Potassium/Phosphorus/Sodium (Neutra Phos) 1 packet PO BID [facility] Last Admin: 01/25/17 11:05 Dose: 1 packet Sodium Chloride (Saline Flush) 10 ml IV Q8 [facility] Last Admin: 01/25/17 06:24 Dose: Not Given Vitamin B Complex (Vitamin B Complex) 1 cap PO DAILY [facility] Last Admin: 01/25/17 09:07 Dose: 1 cap Vitamin D (Vitamin D3) 1,000 unit PO BID [facility] Last Admin: 01/25/17 09:07 Dose: 1,000 unit Medical - PN: A/P - Time Spent With Patient Total time spent is greater than 50% in coordination of care (as documented) at patient's floor/unit and/or counseling patient: (1) SIRS (systemic inflammatory response syndrome) Status: Acute Current Visit: Yes (2) Spinal stenosis at L4-L5 level Status: Chronic Current Visit: Yes (3) Compression fracture Status: Chronic Current Visit: Yes (4) Atrial fibrillation Status: Chronic Current Visit: Yes (5) Anticoagulation adequate with anticoagulant therapy Status: Chronic Current Visit: Yes (6) Acute renal failure Status: Acute Current Visit: Yes (7) Type 2 diabetes mellitus Status: Chronic Current Visit: Yes (8) Altered mental status Status: Acute Current Visit: Yes (9) Pneumonia Status: Acute Current Visit: Yes (10) Compression fracture Status: Chronic Current Visit: No - Narrative A/P Narrative: #1. Neurologic. patient presents with altered mental status, which is likely due to dehydration and general failure to thrive over the last [address] is negative. -Mental status is much improved today. #2. Infectious disease. patient meets criteria for SIRS syndrome. She appears to have both pneumonia and ongoing urinary tract infection. -admit for IV fluids, IV antibiotics. Empiric coverage with Zosyn and Zithromax to cover lungs and bladder. -blood, urine, and sputum cultures have been ordered. -she is afebrile,with normal white blood cell count. Vital signs have returned to normal. Continue empiric antibiotics for pneumonia and UTI. Cultures are pending. #3.pulmonary. Apparent LLL pneumonia. she did initially have hypoxia, but this has improved. Antibiotics as above. continue bronchodilators, oxygen, incentive spirometry as needed. #4.endocrine. -type 2 diabetes. Metformin is on hold, regarding her acute renal insufficiency. Cover with sliding scale insulin, Accu-Cheks. -osteoporosis. Numerous compression fractures, status post vertebral plasty's. Continue Forteo, calcitonin, calcium vitamin D. The patient apparently does not tolerate narcotics. Continue Tylenol. Add tramadol or Lidoderm or muscle relaxers if needed. -she denies significant pain today. #5. Renal. patient presents with acute renal insufficiency. This is likely due to dehydration as well as possible ongoing urinary tract infection, and possible Bactrim side effect, and injury due to metformin. -labs are significantly improved today. Continue IV fluids, encourage increased oral intake. Metabolic acidosis has resolved. 36. Pain. The patient does have chronic back pain, as noted above. She also reportedly has occasional severe sharp left-sided abdominal pain. I suspect this is due to nerve root irritation from numerous compression fractures , but we could consider abdominal x-ray, to rule out constipation. -she denies abdominal pain today. #7. Cardiac. -atrial fibrillation. 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 Continue metoprolol ,digoxin as tolerated. -digoxin level was elevated, so this is on hold. heart rate is currently well controlled. -iNR was elevated, likely due to Bactrim and poor nutrition. This is also on hold. -hypertension.Controlled. Continue metoprolol. #8.hyperlipidemia. #9. DVT prophylaxis: Continue warfarin as needed to maintain therapeutic INR.. Added SCDs. 310. CODE STATUS:Full code. The patient and her family note that she does not have a living will. 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 They would like her to be full code for now. Today's visit took approximately 30 minutes to review test results, review status and plan of care with the patient's granddaughter and then with patient' s who arrived later, interview and examine the patient, and write orders. Medical - PN: Qual - VTE Deep Vein Thrombosis/Pulmonary Embolism Present on Admission: No
[2017-01-25] MEDS: CALCITONIN NASAL SPRAY 3.7ML BOTTLE NS SCH (11:25)
[2017-01-25] MEDS: FORTEO SC SCH ×2 (11:55→13:20)
[2017-01-25] MEDS: AZITHROMYCIN 500 MG in DEXTROSE 5% IN WATER 250 ML IV SCH (15:46)
[2017-01-25] MEDS: ACETAMINOPHEN 325 MG TABLET PO PRN (20:51)
[2017-01-25] MEDS: ATORVASTATIN 20 MG TABLET PO SCH (20:52)
[2017-01-26] MEDS: ALBUTEROL SULFATE 2.5 MG/3 ML NEBULIZER NEB SCH ×3 (02:39→12:59)
[2017-01-26] MEDS: 0.45 % SODIUM CHLORIDE 1,000 ML IV SCH (02:49)
[2017-01-26] MEDS: PIPERACILLIN SODIUM/TAZOBACTAM 2.25 GM in DEXTROSE 5% IN WATER 50 ML IV SCH ×4 (03:45→17:47)
[2017-01-26] MEDS: 0.9 % SODIUM CHLORIDE 10 ML SYRINGE IV SCH ×3 (05:49→22:04)
[2017-01-26 08:08] LABS: Basophils # (Auto) 0 K/mcL (0.0-0.3); Basophils % (Auto) 0.7 % (0.0-2.0); Eosinophils # (Auto) 0.2 K/mcL (0.0-0.7); Eosinophils % (Auto) 2.3 % (0.0-7.0); Granulocytes % (Auto) 64.8 % (38.0-78.0); Lymphocytes # (Auto) 1.4 K/mcL (1.5-4.8); Lymphocytes % (Auto) 20.7 % (15.5-49.0); Mean Corpuscular HGB Conc 34.1 g/dL (31.0-36.0); Mean Corpuscular Hemoglobin 31.4 pg (26.0-34.0); Monocytes # (Auto) 0.8 K/mcL (0.1-0.9); Monocytes % (Auto) 11.5 % (1.0-12.0); Platelet Count 231 K/mcL (140-440); Red Cell Distribution Width 15.7 % (11.5-14.5)
[2017-01-26] MEDS: INSULIN LISPRO 1 UNIT/0.01 ML UNIT SQ SCH ×4 (08:10→22:03)
[2017-01-26] MEDS: ACETAMINOPHEN 325 MG TABLET PO PRN ×2 (08:10→18:13)
[2017-01-26 08:32] LABS: ALT/SGPT 7 U/l (0-40); Albumin 3.3 gm/dL (3.2-5.2); Albumin/Globulin Ratio 1.1 (1.0-2.3); Alkaline Phosphatase 111 U/L (39-117); Bilirubin,Direct < 0.2 mg/dL (0.0-0.3); Blood Urea Nitrogen 21 mg/dl (8-23); Gamma Glutamyl Transpeptidase 31 U/L (5-36); Magnesium 1.4 mg/dL (1.6-2.5); Uric Acid 4.8 mg/dL (2.5-8.0)
[2017-01-26] MEDS: VITAMIN D3 1,000 UNIT TABLET PO SCH ×3 (09:30→22:04)
[2017-01-26] MEDS: FORTEO SC SCH ×2 (09:30→09:50)
[2017-01-26] MEDS: CALCIUM W/VIT D3 500 MG TABLET PO SCH ×2 (09:30→09:50)
[2017-01-26] MEDS: VITAMIN B COMPLEX 1 CAPSULE PO SCH ×2 (09:30→09:50)
[2017-01-26] MEDS: MAGNESIUM OXIDE 400 MG TABLET PO SCH ×2 (09:30→09:50)
[2017-01-26] MEDS: METOPROLOL TARTRATE 50 MG TABLET PO SCH ×3 (09:30→22:03)
[2017-01-26] MEDS: AZITHROMYCIN 500 MG in DEXTROSE 5% IN WATER 250 ML IV SCH ×2 (09:30→09:50)
[2017-01-26] MEDS: CALCITONIN NASAL SPRAY 3.7ML BOTTLE NS SCH (09:39)
--- NOTE | 2017-01-26 10:39 | Cat Scan Report ---
CLINICAL INFORMATION: Headache. Patient is on Coumadin. COMPARISON: None. TECHNIQUE: Axial noncontrast-enhanced images through the brain. FINDINGS: No acute intracranial hemorrhage. No subdural hematoma. No subarachnoid hemorrhage. No intra-axial hemorrhage. No acute intra-axial attenuation abnormality. No localized mass effect. No midline shift. 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 This is not acute. There is age appropriate cerebral atrophy with prominent superficial subarachnoid spaces and ventricular system. Basilar cisterns are normal. No calvarial fracture. Temporal bones are negative. IMPRESSION: No acute abnormality. Interpreted and Authenticated by: Robbie Willis 01/24/17
[2017-01-26] MEDS: NEUTRA PHOS 1 PACKET PO SCH ×2 (12:08→22:04)
--- NOTE | 2017-01-26 12:41 | Internal Med Progress Note ---
Medical - PN: Subj Patient information: Note initiated : 01/26/17 at 12:41 pm Service Date, if different from initiated Date: [] Patient: Debby Perez 86 y/o F admitted on 01/24/17 for Weakness, Altered Mental Status, Stroke Symptoms. Interval history: January 24, 2017:Chief complaint: weakness ,depressed level of consciousness, dysuria History of present illness: Ms. Perez is a 86 year old female is sent to emergency room by her and daughters. hey report that she really has not been doing very well since November of this year, when she was admitted to [facility] with compression fractures of her spine. She apparently underwent several vertebral plasty procedures, and ultimately was sent to [place] for transition care. She improved somewhat, but then apparently was diagnosed with urinary tract infection about 4 days ago, and was started on Bactrim. Her family says she really has just not been doing well since then, and has had decreased oral intake and increased fatigue This evening she was walking to dinner with her family's assistance, and suddenly just could not stand up anymore, and slid down to the floor. They report she sort of slumped over and they really couldn' t get much of a response out of her for several minutes. They then called 911. The ER M.D. reports that the ambulance crew set her initial O2 saturation was 80 % on room air. However this increased to normal by the time of arrival at the ER. ER evaluation shows pyuria and also suggestive of a left base pneumonia. She did have a CT scan of her brain which did not show any acute findings. the patient is awake, but often looks to her for answers, and seems very fatigued. She says she has not been able to get warm for the last couple of days. She also had a significant headache earlier today. She has had a cough for the last 1-2 months, which is nonproductive. Her reports every now and then she grabs the left side of her abdomen and complains of sharp pain. She reports occasional palpitations and occasional nausea. Her reports that she has alternating diarrhea and constipation, with her last bowel movement yesterday. January 25, 2017: today, the patient is feeling quite a bit better. granddaughter and Staff reports that she was able to walk to the shower today, and also ate a pretty large breakfast. The patient reports she still feels significant fatigue , but definitely better than yesterday. -she denies significant current pain. She did take Tylenol with breakfast. -she does not report any obvious bleeding, regarding her elevated INR. -bNP was quite elevated yesterday but the patient denies significant shortness of breath.- -Otherwise, the patient denies subjective fever or chills, chest pain or palpitations, shortness of breath or significant cough. She denies current abdominal pain, nausea or vomiting or diarrhea She continues to have urinary frequency and incontinence. january 26, 2017; today,he patient is feeling even better than yesterday.she is still fatigued but was able to get up and walk, and data good breakfast. nurses report that last night, after using the commode, they noted she had vaginal prolapse which she has had for some time. -She denies subjective fever or chills. She has minimal cough, and denies shortness of breath. She has been working with her incentive spirometer. She denies chest pain or palpitations abdominal pain, nausea or vomiting. she denies significant dysuria. She did have loose stools today, but admits she ate several prunes yesterday. She had some minor back pain this morning, but took Tylenol and that resolved. -her family had lots of questions, including what could be done about her recurrent urinary tract infections. -she does have chronic atrial fibrillation, and rate is quite variable running in the 120sintermittently during the night. Her digoxin has been on holdbecause of initially supratherapeutic therapeutic levels. She does have a pacemaker, and is followed by cardiology. - Constitutional Vitals: Vital Signs Temp Pulse Resp BP Pulse Ox 98.3 F 108 H 16 93/64 96 01/26/17 11:51 01/26/17 11:51 01/26/17 11:51 01/26/17 11:51 01/26/17 11:51 Period Temp Pulse Resp BP Sys/[place] Pulse Ox Last 24 Hr 97.6 F-98.5 F 75-127 14-28 93-126/54-82 93-96 Intake and Output 01/25/17 01/26/17 01/26/17 21:59 05:59 13:59 Intake Total 1040 / 1040 200 / 200 450 / 450 Output Total 575 / 575 450 / 450 Balance 465 / 465 200 / 200 0 / 0 Weight 112 lb Intake & Output: Intake & Output 01/25/17 01/26/17 01/26/17 21:59 05:59 13:59 Intake Total 1040 / 1040 200 / 200 450 / 450 Output Total 575 / 575 450 / 450 Balance 465 / 465 200 / 200 0 / 0 Weight 112 lb Intake: IV 300 / 300 100 / 100 50 / 50 Zithromax 500 mg In 250 / 250 Dextrose 5% in Water 250 ml @ 250 mls/hr IV DAILY [facility] Rx#:[id number] Zosyn 2.25 gm In Dextrose 50 / 50 100 / 100 50 / 50 5% in Water 50 ml @ 100 mls/hr IV Q6H [facility] Rx#: [id number] Oral 740 / 740 100 / 100 400 / 400 Output: Void Amount 575 / 575 450 / 450 Other: Meal Dinner Breakfast Percent of Meal Consumed 25% 100% # Voids 1 1 1 on exam, she is a frail appearing elderly female, in no acute distress. She is sleeping when I entered the room,but awakens to be alert and smiling. She denies any pain currently. Neck shows obvious JVD or lymphadenopathy. Cardiac exam:Shows a fairly regular rhythm with normal rate. Lungs: Show decreased breath sounds at the left base and otherwise lungs are clear, without obvious rales rhonchi, wheezes. Abdomen: Is soft and nontender with normal bowel sounds. Extremities: Show no edema. Neurologic: the patient is awake and alert. neuro exam is grossly nonfocal. Medical - PN: Obj Da - Labs CBC & Chem 7: 01/26/17 05:57 01/26/17 05:57 Labs: Abnormal Lab Results 01/26/17 01/26/17 01/26/17 05:57 05:57 05:57 RBC 3.80 L Hgb 11.9 L Hct 34.9 L RDW 15.7 H Lymph # 1.4 L PT 30.7 H INR 2.8 H Carbon Dioxide BUN Glucose 141 H Phosphorus Magnesium 1.4 L 01/25/17 01/25/17 01/25/17 04:30 04:30 04:30 RBC 3.53 L Hgb 11.3 L Hct 32.5 L RDW 15.3 H Lymph # PT 34.5 H INR 3.3 H Carbon Dioxide 21 L BUN 35 H Glucose Phosphorus 2.3 L Magnesium 1.1 L January 26: - urine culture from February 01 is growing Escherichia coli, greater than 100,000, resistant to tetracycline and Bactrim, but otherwise pansensitive. -blood cultures are negative so far. january 25:Urine culture is growing gram-negative bacilli and ID pending January 24, 2017: BNP elevated at 2204 urinalysis shows 100 mg of protein 75 leukocyte esterase, greater than 182 red blood cells, 60 white blood cells, moderate bacteria CBC differential is essentially normal, although absolute lymphocyte count is a bit low at 1400. sedimentation rate is high at 40 Pro time is 29, with INR of 2.6 anion gap is elevated at 19 Total calcium is elevated at 10.9, alkaline phosphatase elevated at 129 EKG shows atrial fibrillation at a rate of 124, right ventral branch block, left posterior fascicular block head CT is reported as showing no acute disease. chest x-ray shows dense left basilar consolidation with left pleural fluid consistent with pneumonia. CT scan from December 03, 2016: Shows vertebroplasty changes of T10, T12, L2, L3, L4. Severe spinal canal stenosis at L3-4 and L4-5 Vertebral body compression fracture at L5 Meds: Medications Acetaminophen (Tylenol) 650 mg PO Q6HP PRN PRN Reason: PAIN/FEVER > 101 Last Admin: 01/26/17 08:10 Dose: 650 mg Acetaminophen/Hydrocodone Bitart ([place] 5/325mg) 1 tab PO Q4HP PRN PRN Reason: Pain Albuterol Sulfate (Ventolin) 2.5 mg NEB Q2HP PRN PRN Reason: Shortness Of Breath Albuterol Sulfate (Ventolin) 2.5 mg NEB Q6HRT [facility] Last Admin: 01/26/17 07:15 Dose: 2.5 mg Atorvastatin Calcium (Lipitor) 20 mg PO HS [facility] Last Admin: 01/25/17 20:52 Dose: 20 mg Calcitonin [place] (Miacalcin) 1 spray NS DAILY [facility] Last Admin: 01/26/17 09:39 Dose: Not Given Calcium Carbonate/Glycine (Tums) 1,000 mg CHEWED Q4HP PRN PRN Reason: Dyspepsia Calcium/Vitamin D (Calcium W/Vit D3) 500 mg PO DAILY [facility] Last Admin: 01/26/17 09:50 Dose: 500 mg Dextrose (Dextrose 50%) 0 ml IV UD PRN PRN Reason: Hypoglycemia Diagnostic Test (Pha) (Accu-Chek) 1 each FS ACHS [facility] Last Admin: 01/26/17 11:31 Dose: 1 each Docusate Sodium (Colace) 100 mg PO BID PRN PRN Reason: Constipation Piperacillin Sod/Tazobactam (Sod 2.25 gm/ Dextrose) 50 mls @ 100 mls/hr IV Q6H [facility] Last Admin: 01/26/17 12:08 Dose: 100 mls/hr Sodium Chloride (Sodium Chloride 0.45%) 1,000 mls @ 50 mls/hr IV .Q20H [facility] Last Admin: 01/26/17 02:49 Dose: 50 mls/hr Insulin Human Lispro (Humalog) 0 unit SQ ACHS [facility] PRN Reason: Protocol Last Admin: 01/26/17 12:08 Dose: 2 unit Lidocaine (Lidoderm) 0 patch TOPICAL DAILY@1000 PRN PRN Reason: Pain Magnesium Hydroxide (Milk Of Magnesia) 30 ml PO DAILYP PRN PRN Reason: Constipation Magnesium Oxide (Magnesium Oxide) 400 mg PO DAILY [facility] Last Admin: 01/26/17 09:50 Dose: 400 mg Metoprolol Tartrate (Lopressor) 50 mg PO BID [facility] Last Admin: 01/26/17 09:50 Dose: 50 mg Naloxone HCl (Narcan) 0.1 mg IV Q2MIN PRN PRN Reason: Opiate Reversal Ondansetron HCl (Zofran) 4 mg IV Q6HP PRN PRN Reason: Nausea And Vomiting Forteo (Teriparatide ) Injection 20 Mcg/Dose 1 dose SC DAILY [facility] Last Admin: 01/26/17 09:50 Dose: 1 dose Potassium/Phosphorus/Sodium (Neutra Phos) 1 packet PO BID [facility] Last Admin: 01/26/17 12:08 Dose: 1 packet Sodium Chloride (Saline Flush) 10 ml IV Q8 [facility] Last Admin: 01/26/17 05:49 Dose: Not Given Vitamin B Complex (Vitamin B Complex) 1 cap PO DAILY [facility] Last Admin: 01/26/17 09:50 Dose: 1 cap Vitamin D (Vitamin D3) 1,000 unit PO BID [facility] Last Admin: 01/26/17 09:50 Dose: 1,000 unit Warfarin Sodium (Coumadin) 2.5 mg PO ONCE@1400 ONE Stop: 01/26/17 14:01 Medical - PN: A/P - Time Spent With Patient Total time spent is greater than 50% in coordination of care (as documented) at patient's floor/unit and/or counseling patient: Greater than 35 minutes (1) SIRS (systemic inflammatory response syndrome) Status: Acute Current Visit: Yes (2) Spinal stenosis at L4-L5 level Status: Chronic Current Visit: Yes (3) Compression fracture Status: Chronic Current Visit: Yes (4) Atrial fibrillation Status: Chronic Current Visit: Yes (5) Anticoagulation adequate with anticoagulant therapy Status: Chronic Current Visit: Yes (6) Acute renal failure Status: Acute Current Visit: Yes (7) Type 2 diabetes mellitus Status: Chronic Current Visit: Yes (8) Altered mental status Status: Acute Current Visit: Yes (9) Pneumonia Status: Acute Current Visit: Yes (10) Compression fracture Status: Chronic Current Visit: No - Narrative A/P Narrative: #1. Neurologic. patient presents with altered mental status, which is likely due to dehydration and general failure to thrive over the last [address] is negative. -Mental status is much improved . #2. Infectious disease. -patient met criteria for SIRS syndrome. She appears to have both pneumonia and ongoing urinary tract infection. she was on Bactrim as an outpatient for UTI, but it turns out her Escherichia coliis resistant to Bactrim. She is now markedly improved since being started on Zosyn. -continue Zosyn, IV fluids. Blood cultures are still pending. #3.pulmonary. Apparent LLL pneumonia. she did initially have hypoxia, but this has improved. continue Zosyn and Zithromax. continue bronchodilators, oxygen, incentive spirometry as needed. -check follow-up chest x-ray today or tomorrow. -Patient should be low risk for PE, given supratherapeutic INR. #4.endocrine. -type 2 diabetes. Metformin has been on hold, regarding her acute renal insufficiency. Cover with sliding scale insulin, Accu-Cheks. Accu-Cheks are starting to trend up as oral intake improves. -.resume metformin. -osteoporosis. Numerous compression fractures, status post vertebral plasty's. Continue Forteo, calcitonin, calcium vitamin D. The patient apparently does not tolerate narcotics. Continue Tylenol. Add tramadol or Lidoderm or muscle relaxers if needed. -she denies significant pain today. #5. Renal. patient presents with acute renal insufficiency. This is likely due to dehydration as well as possible ongoing urinary tract infection, and possible Bactrim side effect, and injury due to metformin. -labs are significantly improved . Continue IV fluids, encourage increased oral intake. Metabolic acidosis has resolved. -okay to resume metformin. -magnesium is low today. Replace. 36. Pain. The patient does have chronic back pain, as noted above. She also reportedly has occasional severe sharp left-sided abdominal pain. I suspect this is due to nerve root irritation from numerous compression fractures , but we could consider abdominal x-ray, to rule out constipation. -she denies abdominal pain today. #7. Cardiac. -atrial fibrillation. 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 Continue metoprolol . -digoxin level is back in therapeutic range today. We can resume low-dose digoxin. -iNR was elevated, likely due to Bactrim and poor nutrition. This is also on hold.pharmacy is following. -hypertension.Controlled. Continue metoprolol. #8.hyperlipidemia. #9. DVT prophylaxis: Continue warfarin as needed to maintain therapeutic INR.. Added SCDs. 310. CODE STATUS:Full code. The patient and her family note that she does not have a living will. Her has her medical power of collections attorney. They would like her to be full code for now. #11. . The patient apparently has long-standing vaginal prolapse. I discussed with her daughter at length today, that this could be contributing to recurrent UTIs. I would like her to have a RECRUITING SCHEDULER consultation, to see if perhaps a pessary , or topical estrogens, could help prevent future infections . If that evaluation is unrevealing, urology consultation might also be helpful. Today's visit took approximately 35 minutes to review test results, review status and plan of care with the patient's family, interview and examine her, and write orders. Medical - PN: Qual - VTE Deep Vein Thrombosis/Pulmonary Embolism Present on Admission: No
[2017-01-26] MEDS ORDERED: MAGNESIUM SULFATE 2 GM/50 ML BAG IV ONE (13:15)
[2017-01-26] MEDS ORDERED: DIGOXIN 125 MCG TABLET PO SCH (14:00)
[2017-01-26] MEDS ORDERED: WARFARIN 2.5 MG TABLET PO ONE (14:00)
[2017-01-26] MEDS: metFORMIN 500 MG TABLET PO SCH (17:12)
[2017-01-26] MEDS: ATORVASTATIN 20 MG TABLET PO SCH (22:03)
[2017-01-27] MEDS: PIPERACILLIN SODIUM/TAZOBACTAM 2.25 GM in DEXTROSE 5% IN WATER 50 ML IV SCH ×4 (00:07→17:51)
[2017-01-27] MEDS: 0.45 % SODIUM CHLORIDE 1,000 ML IV SCH ×2 (03:57→14:08)
[2017-01-27] MEDS: 0.9 % SODIUM CHLORIDE 10 ML SYRINGE IV SCH ×3 (05:40→21:55)
[2017-01-27 06:04] LABS: Basophils # (Auto) 0 K/mcL (0.0-0.3); Basophils % (Auto) 0.6 % (0.0-2.0); Eosinophils # (Auto) 0.1 K/mcL (0.0-0.7); Eosinophils % (Auto) 1.9 % (0.0-7.0); Granulocytes % (Auto) 65.2 % (38.0-78.0); Lymphocytes # (Auto) 1.5 K/mcL (1.5-4.8); Lymphocytes % (Auto) 22.5 % (15.5-49.0); Mean Cell Volume 93.2 fL (80.0-100.0); Mean Corpuscular HGB Conc 34.7 g/dL (31.0-36.0); Mean Corpuscular Hemoglobin 32.4 pg (26.0-34.0); Monocytes # (Auto) 0.7 K/mcL (0.1-0.9); Monocytes % (Auto) 9.8 % (1.0-12.0); Platelet Count 241 K/mcL (140-440); RBC 3.52 M/mcL (4.00-5.20); Red Cell Distribution Width 15.4 % (11.5-14.5)
[2017-01-27 06:26] LABS: ALT/SGPT 13 U/l (0-40); Albumin 3.5 gm/dL (3.2-5.2); Albumin/Globulin Ratio 1.3 (1.0-2.3); Alkaline Phosphatase 126 U/L (39-117); Bilirubin,Direct < 0.2 mg/dL (0.0-0.3); Blood Urea Nitrogen 22 mg/dl (8-23); Gamma Glutamyl Transpeptidase 41 U/L (5-36); Magnesium 1.6 mg/dL (1.6-2.5); Uric Acid 4.7 mg/dL (2.5-8.0)
[2017-01-27] MEDS: INSULIN LISPRO 1 UNIT/0.01 ML UNIT SQ SCH ×4 (07:42→20:43)
[2017-01-27] MEDS: ACETAMINOPHEN 325 MG TABLET PO PRN (07:42)
--- NOTE | 2017-01-27 08:05 | XRay Report ---
CLINICAL INFORMATION: Follow pneumonia COMPARISON: 01/24/2017 FINDINGS: The heart is mildly enlarged, but unchanged. Pacemaker and leads in stable satisfactory position. Mediastinum and pulmonary vessels are normal. Moderate sized consolidated infiltrate and/or atelectasis left lower lobe with moderate left pleural effusions show slight worsening. Right lung and left upper lobe are well expanded and clear IMPRESSION: Large region of consolidated atelectasis and/or infiltrate in the left lower lobe with moderate left pleural effusion - worsening since exam three days ago. Consider: Ultrasound-guided left thoracentesis Interpreted and Authenticated by: Robbie Woods 01/27/17
[2017-01-27] MEDS: MAGNESIUM OXIDE 400 MG TABLET PO SCH (09:12)
[2017-01-27] MEDS: VITAMIN B COMPLEX 1 CAPSULE PO SCH (09:12)
[2017-01-27] MEDS: METOPROLOL TARTRATE 50 MG TABLET PO SCH (09:12)
[2017-01-27] MEDS: CALCIUM W/VIT D3 500 MG TABLET PO SCH (09:12)
[2017-01-27] MEDS: metFORMIN 500 MG TABLET PO SCH ×2 (09:13→17:43)
[2017-01-27] MEDS: NEUTRA PHOS 1 PACKET PO SCH ×2 (09:13→20:44)
[2017-01-27] MEDS: CALCITONIN NASAL SPRAY 3.7ML BOTTLE NS SCH (09:13)
[2017-01-27] MEDS: VITAMIN D3 1,000 UNIT TABLET PO SCH ×2 (09:13→20:43)
[2017-01-27] MEDS: FORTEO SC SCH (09:20)
[2017-01-27] MEDS ORDERED: LIDOCAINE PATCH TOPICAL PRN (11:20)
[2017-01-27] MEDS ORDERED: MAGNESIUM HYDROXIDE 30 ML ORAL.SUSP PO PRN (11:20)
[2017-01-27] MEDS ORDERED: DOCUSATE SODIUM 100 MG CAPSULE PO PRN (11:20)
[2017-01-27] MEDS ORDERED: CALCIUM CARBONATE 500 MG TAB.CHEW CHEWED PRN (11:20)
[2017-01-27] MEDS ORDERED: DEXTROSE 50% 50 ML VIAL IV PRN (11:20)
[2017-01-27] MEDS ORDERED: ONDANSETRON 4 MG/2 ML VIAL IV PRN (11:20)
[2017-01-27] MEDS ORDERED: NALOXONE HCL 0.4 MG/ML VIAL IV PRN (11:20)
[2017-01-27] MEDS ORDERED: ALBUTEROL SULFATE 2.5 MG/3 ML NEBULIZER NEB PRN (11:20)
--- NOTE | 2017-01-27 12:19 | Ultrasound Report ---
CLINICAL INFORMATION: Large left pleural effusion TECHNIQUE: The procedure and risks including possibility of bleeding, infection, and pneumothorax were explained to the patient. She understood and wished to proceed. The fluid was first ultrasound localized. The skin overlying the posterior left 10th intercostal space was marked, prepped and locally anesthetized to the level of the pleura using 1% lidocaine and a 25-gauge needle. An 18-gauge Yueh needle was advanced into the pleural fluid under ultrasound guidance. 1.2 L of simple appearing transudative pleural fluid was aspirated and a portion was sent for requested lab studies. Post procedure scanning shows only a small amount of residual pleural fluid. Patient tolerated procedure well without apparent complication IMPRESSION: Successful left thoracentesis yielding 1.2 L of simple transudative appearing fluid report was sent for requested laboratory studies. No apparent complication. Interpreted and Authenticated by: Robbie Woods 01/27/17
--- NOTE | 2017-01-27 13:10 | Cat Scan Report ---
CLINICAL INFORMATION: ]. Following left thoracentesis for left pleural effusion COMPARISON: None TECHNIQUE: 2.5 mm axial slices were obtained from the lung apices through the bases without intravenous contrast. Sagittal, coronal and axial reformatted images were processed and reviewed at bone, lung and soft tissue windows. 7 mm axial MIP images were also reconstructed. FINDINGS: Pulmonary parenchymal windows show only a tiny residual left pleural effusion. There is a small bandlike region of groundglass airspace disease in the posterior left lower lobe which likely reflects underlying atelectasis and/or infiltrate. A small right pleural effusion with minimal atelectasis in the overlying posterior right lower lobe. Small calcified granuloma in the left lung apex noted. Mediastinal windows show the heart is mildly enlarged. A small pericardial effusion is noted. Pacemaker and leads in stable satisfactory position. There is no adenopathy mediastinal, hilar or axillary regions. The noncontrasted thoracic aorta and pulmonary arteries are normal. Bone windows show mild T10 and moderate T12 compression fractures arrested by kyphoplasty. IMPRESSION: 1. Only small residual left pleural effusion following left thoracentesis. There is no pneumothorax or other complication from the procedure. There is only a small region of bandlike groundglass airspace disease in the posterior left lower lobe - likely atelectasis rather than residual infiltrate. 2. Small right pleural effusion and minor atelectasis posterior right lower lobe. 3. Small pericardial effusion and mild cardiomegaly Interpreted and Authenticated by: Robbie Woods 01/27/17
[2017-01-27] MEDS ORDERED: WARFARIN 2.5 MG TABLET PO SCH (14:00)
[2017-01-27] MEDS: DIGOXIN 125 MCG TABLET PO SCH (14:04)
[2017-01-27 15:20] LABS: Amylase,Pleural Fluid 29 U/L; Glucose,Pleural Fluid 166 mg/dL
[2017-01-27 15:23] LABS: Total Protein,Pleural Fluid 4.2 gm/dL
--- NOTE | 2017-01-27 15:25 | Internal Med Progress Note ---
Medical - PN: Subj Patient information: Note initiated : 01/27/17 at 3:21 pm Service Date, if different from initiated Date: [] Patient: Debby Perez 86 y/o F admitted on 01/24/17 for Weakness, Altered Mental Status, Stroke Symptoms. Chief Complaint: [] Interval history: January 24, 2017:Chief complaint: weakness ,depressed level of consciousness, dysuria History of present illness: Ms. Perez is a 86 year old female is sent to emergency room by her and daughters. hey report that she really has not been doing very well since November of this year, when she was admitted to [facility] with compression fractures of her spine. She apparently underwent several vertebral plasty procedures, and ultimately was sent to [place] for transition care. She improved somewhat, but then apparently was diagnosed with urinary tract infection about 4 days ago, and was started on Bactrim. Her family says she really has just not been doing well since then, and has had decreased oral intake and increased fatigue This evening she was walking to dinner with her family's assistance, and suddenly just could not stand up anymore, and slid down to the floor. They report she sort of slumped over and they really couldn' t get much of a response out of her for several minutes. They then called 911. The ER M.D. reports that the ambulance crew set her initial O2 saturation was 80 % on room air. However this increased to normal by the time of arrival at the ER. ER evaluation shows pyuria and also suggestive of a left base pneumonia. She did have a CT scan of her brain which did not show any acute findings. the patient is awake, but often looks to her for answers, and seems very fatigued. She says she has not been able to get warm for the last couple of days. She also had a significant headache earlier today. She has had a cough for the last 1-2 months, which is nonproductive. Her reports every now and then she grabs the left side of her abdomen and complains of sharp pain. She reports occasional palpitations and occasional nausea. Her reports that she has alternating diarrhea and constipation, with her last bowel movement yesterday. January 25, 2017: today, the patient is feeling quite a bit better. granddaughter and Staff reports that she was able to walk to the shower today, and also ate a pretty large breakfast. The patient reports she still feels significant fatigue , but definitely better than yesterday. -she denies significant current pain. She did take Tylenol with breakfast. -she does not report any obvious bleeding, regarding her elevated INR. -bNP was quite elevated yesterday but the patient denies significant shortness of breath.- -Otherwise, the patient denies subjective fever or chills, chest pain or palpitations, shortness of breath or significant cough. She denies current abdominal pain, nausea or vomiting or diarrhea She continues to have urinary frequency and incontinence. january 26, 2017; today,he patient is feeling even better than yesterday.she is still fatigued but was able to get up and walk, and data good breakfast. nurses report that last night, after using the commode, they noted she had vaginal prolapse which she has had for some time. -She denies subjective fever or chills. She has minimal cough, and denies shortness of breath. She has been working with her incentive spirometer. She denies chest pain or palpitations abdominal pain, nausea or vomiting. she denies significant dysuria. She did have loose stools today, but admits she ate several prunes yesterday. She had some minor back pain this morning, but took Tylenol and that resolved. -her family had lots of questions, including what could be done about her recurrent urinary tract infections. -she does have chronic atrial fibrillation, and rate is quite variable running in the 120sintermittently during the night. Her digoxin has been on holdbecause of initially supratherapeutic therapeutic levels. She does have a pacemaker, and is followed by cardiology. January 27: patient seen examined, sitting comfortably in the chair during my exam. Had no complaints besides fatigue. I reviewed the labs and investigations with her. Her Chest X ray done this AM showed significant worsening of the left sided pleural effusion as well as possible pna. She remains on antibiotics for UTI and PNA. The patient underwent a USG guided pleural tap and a CT scan of the Chest. 1.2 ml of fluid aspirated by Radiology. Patient otherwise did not report any other symptom. She remains tachycardic. Her HR 120-130, she will resume her dose of digoxin however given her persistant tachycardia, she was moved to tele monitoring. IV metoprolol for rate control and increase the dose of metoprolol from 50mg bid to 75mg bid. Pertinent ROS: Denies headache, dizziness Denies chest pain, palpitations Denies cough or shortness of breath Denies abdominal pain, nausea or vomiting. - Constitutional Vitals: Vital Signs Temp Pulse Resp BP Pulse Ox 97.9 F 118 H 16 139/80 97 01/27/17 14:32 01/27/17 14:32 01/27/17 14:32 01/27/17 14:32 01/27/17 14:32 Period Temp Pulse Resp BP Sys/Galindo Pulse Ox Last 24 Hr 97.3 F-98.2 F 106-121 16-24 103-147/73-93 93-97 Intake and Output 01/27/17 01/27/17 01/27/17 05:59 13:59 21:59 Intake Total 1225 / 1225 50 / 50 Output Total Balance 1224 / 1224 50 / 50 Intake & Output: Intake & Output 01/27/17 01/27/17 01/27/17 05:59 13:59 21:59 Intake Total 1225 / 1225 50 / 50 Output Total Balance 1224 / 1224 50 / 50 Intake: IV 1050 / 1050 50 / 50 Sodium Chloride 0.45% 1, 1000 / 1000 000 ml @ 50 mls/hr IV . Q20H [facility] Rx#:[id number] Zosyn 2.25 gm In Dextrose 50 / 50 50 / 50 5% in Water 50 ml @ 100 mls/hr IV Q6H [facility] Rx#: [id number] Oral 175 / 175 Output: # of times incontinent of 1 / urine Other: # Voids 1 1 # Bowel Movements 1 Exam: Constitutional; Afebrile, cooperative, alert, not in distress. Eyes- No icterus, , No periorbital swelling Ears- Ext ear normal, hearing normal to conversation. Neck- Midline trachea, supple Respiratory system: Air Entry equal on both sides, No crackles or wheezing, no rhonchi. CVS- Rate tachycardic, rhythm irregular, S1,S2 heard, no gallop, no rub. 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 Medical - PN: Obj Da - Labs CBC & Chem 7: 01/27/17 04:12 01/27/17 04:12 Labs: Abnormal Lab Results 01/27/17 01/27/17 01/27/17 04:12 04:12 04:12 RBC 3.52 L Hgb 11.4 L Hct 32.8 L RDW 15.4 H Lymph # PT 26.6 H INR 2.4 H Carbon Dioxide 21 L Anion Gap 18.0 H BUN Glucose 149 H Phosphorus Magnesium GGT 41 H Alkaline Phosphatase 126 H 01/26/17 01/26/17 01/26/17 05:57 05:57 05:57 RBC 3.80 L Hgb 11.9 L Hct 34.9 L RDW 15.7 H Lymph # 1.4 L PT 30.7 H INR 2.8 H Carbon Dioxide Anion Gap BUN Glucose 141 H Phosphorus Magnesium 1.4 L GGT Alkaline Phosphatase 01/25/17 01/25/17 01/25/17 04:30 04:30 04:30 RBC 3.53 L Hgb 11.3 L Hct 32.5 L RDW 15.3 H Lymph # PT 34.5 H INR 3.3 H Carbon Dioxide 21 L Anion Gap BUN 35 H Glucose Phosphorus 2.3 L Magnesium 1.1 L GGT Alkaline Phosphatase Meds: Medications Acetaminophen (Tylenol) 650 mg PO Q6HP PRN PRN Reason: PAIN/FEVER > 101 Acetaminophen/Hydrocodone Bitart ([place] 5/325mg) 1 tab PO Q4HP PRN PRN Reason: Pain Albuterol Sulfate (Ventolin) 2.5 mg NEB Q2HP PRN PRN Reason: Shortness Of Breath Atorvastatin Calcium (Lipitor) 20 mg PO HS [facility] Calcitonin [place] (Miacalcin) 1 spray NS DAILY [facility] Calcium Carbonate/Glycine (Tums) 1,000 mg CHEWED Q4HP PRN PRN Reason: Dyspepsia Calcium/Vitamin D (Calcium W/Vit D3) 500 mg PO DAILY [facility] Dextrose (Dextrose 50%) 0 ml IV UD PRN PRN Reason: Hypoglycemia Diagnostic Test (Pha) (Accu-Chek) 1 each FS ACHS [facility] Last Admin: 01/27/17 11:59 Dose: 1 each Digoxin (Lanoxin) 125 mcg PO DAILY@1400 [facility] Last Admin: 01/27/17 14:04 Dose: 125 mcg Docusate Sodium (Colace) 100 mg PO BID PRN PRN Reason: Constipation Piperacillin Sod/Tazobactam (Sod 2.25 gm/ Dextrose) 50 mls @ 100 mls/hr IV Q6H [facility] Last Infusion: 01/27/17 12:40 Dose: Infused Sodium Chloride (Sodium Chloride 0.45%) 1,000 mls @ 50 mls/hr IV .Q20H [facility] Last Admin: 01/27/17 14:08 Dose: Not Given Insulin Human Lispro (Humalog) 0 unit SQ ACHS [facility] PRN Reason: Protocol Last Admin: 01/27/17 12:00 Dose: 3 unit Lidocaine (Lidoderm) 0 patch TOPICAL DAILY@1000 PRN PRN Reason: Pain Magnesium Hydroxide (Milk Of Magnesia) 30 ml PO DAILYP PRN PRN Reason: Constipation Magnesium Oxide (Magnesium Oxide) 400 mg PO DAILY [facility] Metformin HCl (Glucophage) 500 mg PO BIDCC [facility] Metoprolol Tartrate (Lopressor) 5 mg IV Q5M [facility] Stop: 01/27/17 15:26 Metoprolol Tartrate (Lopressor) 75 mg PO BID [facility] Naloxone HCl (Narcan) 0.1 mg IV Q2MIN PRN PRN Reason: Opiate Reversal Ondansetron HCl (Zofran) 4 mg IV Q6HP PRN PRN Reason: Nausea And Vomiting Forteo (Teriparatide ) Injection 20 Mcg/Dose 1 dose SC DAILY [facility] Potassium/Phosphorus/Sodium (Neutra Phos) 1 packet PO BID [facility] Sodium Chloride (Saline Flush) 10 ml IV Q8 [facility] Last Admin: 01/27/17 14:56 Dose: Not Given Vitamin B Complex (Vitamin B Complex) 1 cap PO DAILY [facility] Vitamin D (Vitamin D3) 1,000 unit PO BID [facility] Medical - PN: A/P - Time Spent With Patient Total time spent is greater than 50% in coordination of care (as documented) at patient's floor/unit and/or counseling patient: - Narrative A/P Narrative: UTI: Ecoli shah sensitive, on zosyn and zithromax for now to cover UTI and PNA, she has vaginal prolapse which is likely etiology of recurrent UTI, will need NURSING PROFESSOR follow up as outpatient. PNA with Effusion: noted on the CXR IV zosyn and zithromax, blood cultures are neg so far. continue same Pleural effusion: s/p drainage, will review results, clear transudate fluid as per radiology report. CT chest is negative. Altered mental status: resolved. Acute Kidney Injury: Resolved Diabetes: contiue sliding scale insulin, resume home meds at discharge Atrial fibrilaltion: Monitor on tele, s/p pacemaker, IV metoprolol for now, resume digoxin, increase dose of metoprolol to 75mg bid. INR is therapeutic. Full code Diabetic Diet. Medical - PN: Qual - VTE Deep Vein Thrombosis/Pulmonary Embolism Present on Admission: No
[2017-01-27] MEDS: METOPROLOL TARTRATE 5 MG/5 ML VIAL IV SCH ×3 (15:38→15:53)
[2017-01-27 15:56] LABS: pH,Body Fluid 7.56
[2017-01-27] MEDS ORDERED: DILTIAZEM 25 MG/5 ML VIAL IV ONE (17:37)
[2017-01-27 19:28] LABS: Appearance,Pleural Fluid HAZY; Color,Pleural Fluid LIGHT YELLOW; Nucleated Cells,Pleural Fld 2976 /cumm; RBC,Pleural Fluid < 50000 /cumm
[2017-01-27 19:30] LABS: Lymphocytes,Pleural Fluid 38 %; Neutrophils,Pleural Fluid 28 %
[2017-01-27] MEDS: ATORVASTATIN 20 MG TABLET PO SCH (20:43)
[2017-01-27] MEDS: HYDROcodone/APAP 5/325MG TABLET PO PRN (20:44)
[2017-01-27] MEDS ORDERED: METOPROLOL TARTRATE 50 MG TABLET PO SCH ×2 (21:00)
[2017-01-28] MEDS: PIPERACILLIN SODIUM/TAZOBACTAM 2.25 GM in DEXTROSE 5% IN WATER 50 ML IV SCH ×2 (00:35→05:24)
[2017-01-28] MEDS: 0.45 % SODIUM CHLORIDE 1,000 ML IV SCH (05:23)
[2017-01-28] MEDS: 0.9 % SODIUM CHLORIDE 10 ML SYRINGE IV SCH ×3 (05:23→21:57)
[2017-01-28 05:33] LABS: Basophils # (Auto) 0.1 K/mcL (0.0-0.3); Basophils % (Auto) 0.6 % (0.0-2.0); Eosinophils # (Auto) 0.1 K/mcL (0.0-0.7); Eosinophils % (Auto) 1.6 % (0.0-7.0); Granulocytes % (Auto) 68.1 % (38.0-78.0); Lymphocytes # (Auto) 1.6 K/mcL (1.5-4.8); Lymphocytes % (Auto) 20.1 % (15.5-49.0); Mean Corpuscular HGB Conc 34.3 g/dL (31.0-36.0); Mean Corpuscular Hemoglobin 31.9 pg (26.0-34.0); Monocytes # (Auto) 0.8 K/mcL (0.1-0.9); Monocytes % (Auto) 9.6 % (1.0-12.0); Platelet Count 233 K/mcL (140-440); RBC 3.67 M/mcL (4.00-5.20); Red Cell Distribution Width 16.1 % (11.5-14.5)
[2017-01-28 06:16] LABS: ALT/SGPT 27 U/l (0-40); Albumin 3.2 gm/dL (3.2-5.2); Albumin/Globulin Ratio 1.3 (1.0-2.3); Alkaline Phosphatase 141 U/L (39-117); Bilirubin,Direct < 0.2 mg/dL (0.0-0.3); Blood Urea Nitrogen 17 mg/dl (8-23); Gamma Glutamyl Transpeptidase 64 U/L (5-36); Magnesium 1.2 mg/dL (1.6-2.5); Uric Acid 4.1 mg/dL (2.5-8.0)
[2017-01-28] MEDS ORDERED: MAGNESIUM SULFATE 2 GM/50 ML BAG IV ONE (07:28)
[2017-01-28] MEDS: INSULIN LISPRO 1 UNIT/0.01 ML UNIT SQ SCH ×4 (08:00→20:21)
[2017-01-28] MEDS ORDERED: MAGNESIUM OXIDE 400 MG TABLET PO SCH (09:00)
[2017-01-28] MEDS: NEUTRA PHOS 1 PACKET PO SCH ×2 (09:37→20:06)
[2017-01-28] MEDS: MAGNESIUM OXIDE 400 MG TABLET PO SCH ×2 (09:38→20:07)
[2017-01-28] MEDS: METOPROLOL TARTRATE 50 MG TABLET PO SCH ×2 (09:38→20:06)
[2017-01-28] MEDS: VITAMIN D3 1,000 UNIT TABLET PO SCH ×2 (09:39→20:06)
[2017-01-28] MEDS: CALCIUM W/VIT D3 500 MG TABLET PO SCH (09:39)
[2017-01-28] MEDS: VITAMIN B COMPLEX 1 CAPSULE PO SCH (09:39)
[2017-01-28] MEDS: CALCITONIN NASAL SPRAY 3.7ML BOTTLE NS SCH (09:39)
[2017-01-28] MEDS: metFORMIN 500 MG TABLET PO SCH ×2 (09:39→17:33)
[2017-01-28] MEDS ORDERED: 0.9 % SODIUM CHLORIDE 250 ML IV ONE ×2 (10:40→12:58)
--- NOTE | 2017-01-28 10:45 | Internal Med Progress Note ---
Medical - PN: Subj Patient information: Note initiated : 01/28/17 at 10:42 am Service Date, if different from initiated Date: [] Patient: Debby Perez 86 y/o F admitted on 01/24/17 for Weakness, Altered Mental Status, Stroke Symptoms. Chief Complaint: [] Interval history: January 24, 2017:Chief complaint: weakness ,depressed level of consciousness, dysuria History of present illness: Ms. Perez is a 86 year old female is sent to emergency room by her and daughters. hey report that she really has not been doing very well since November of this year, when she was admitted to [facility] with compression fractures of her spine. She apparently underwent several vertebral plasty procedures, and ultimately was sent to [place] for transition care. She improved somewhat, but then apparently was diagnosed with urinary tract infection about 4 days ago, and was started on Bactrim. Her family says she really has just not been doing well since then, and has had decreased oral intake and increased fatigue This evening she was walking to dinner with her family's assistance, and suddenly just could not stand up anymore, and slid down to the floor. They report she sort of slumped over and they really couldn' t get much of a response out of her for several minutes. They then called 911. The ER M.D. reports that the ambulance crew set her initial O2 saturation was 80 % on room air. However this increased to normal by the time of arrival at the ER. ER evaluation shows pyuria and also suggestive of a left base pneumonia. She did have a CT scan of her brain which did not show any acute findings. the patient is awake, but often looks to her for answers, and seems very fatigued. She says she has not been able to get warm for the last couple of days. She also had a significant headache earlier today. She has had a cough for the last 1-2 months, which is nonproductive. Her reports every now and then she grabs the left side of her abdomen and complains of sharp pain. She reports occasional palpitations and occasional nausea. Her reports that she has alternating diarrhea and constipation, with her last bowel movement yesterday. January 25, 2017: today, the patient is feeling quite a bit better. granddaughter and Staff reports that she was able to walk to the shower today, and also ate a pretty large breakfast. The patient reports she still feels significant fatigue , but definitely better than yesterday. -she denies significant current pain. She did take Tylenol with breakfast. -she does not report any obvious bleeding, regarding her elevated INR. -bNP was quite elevated yesterday but the patient denies significant shortness of breath.- -Otherwise, the patient denies subjective fever or chills, chest pain or palpitations, shortness of breath or significant cough. She denies current abdominal pain, nausea or vomiting or diarrhea She continues to have urinary frequency and incontinence. january 26, 2017; today,he patient is feeling even better than yesterday.she is still fatigued but was able to get up and walk, and data good breakfast. nurses report that last night, after using the commode, they noted she had vaginal prolapse which she has had for some time. -She denies subjective fever or chills. She has minimal cough, and denies shortness of breath. She has been working with her incentive spirometer. She denies chest pain or palpitations abdominal pain, nausea or vomiting. she denies significant dysuria. She did have loose stools today, but admits she ate several prunes yesterday. She had some minor back pain this morning, but took Tylenol and that resolved. -her family had lots of questions, including what could be done about her recurrent urinary tract infections. -she does have chronic atrial fibrillation, and rate is quite variable running in the 120sintermittently during the night. Her digoxin has been on holdbecause of initially supratherapeutic therapeutic levels. She does have a pacemaker, and is followed by cardiology. January 27: patient seen examined, sitting comfortably in the chair during my exam. Had no complaints besides fatigue. I reviewed the labs and investigations with her. Her Chest X ray done this AM showed significant worsening of the left sided pleural effusion as well as possible pna. She remains on antibiotics for UTI and PNA. The patient underwent a USG guided pleural tap and a CT scan of the Chest. 1.2 ml of fluid aspirated by Radiology. Patient otherwise did not report any other symptom. She remains tachycardic. Her HR 120-130, she will resume her dose of digoxin however given her persistant tachycardia, she was moved to tele monitoring. IV metoprolol for rate control and increase the dose of metoprolol from 50mg bid to 75mg bid. january 28: Patient seen examined, sitting comfortably in her chair today,overnight events noted. 2 episodes of diarrhea last night and one episode this AM, the patient does not have blood in stools, no abdominal pain, no nausea or vomiting , no shortness of breath or chest pains. She is othewise doing well will send stool for cdiff D/c zosyn, start on rocephin microbiology neg from pleural fluid, but pleural fluid analysis shows this is a exudative fluid, likely from pna. HR still remains high, increase dose of metoprolol to 100mg bid, continue dig, saline bolus, and prn cardizem Pertinent ROS: Denies headache, dizziness Denies chest pain, palpitations Denies cough or shortness of breath Denies abdominal pain, nausea or vomiting. Diarrhea present Additional PMFSH (Level 3 Only): reviewed - Constitutional Vitals: Vital Signs Temp Pulse Resp BP Pulse Ox 97.9 F 121 H 18 140/101 94 01/28/17 03:41 01/28/17 03:41 01/28/17 03:41 01/28/17 03:41 01/28/17 07:26 Period Temp Pulse Resp BP Sys/Galindo Pulse Ox Last 24 Hr 97.9 F-98.8 F 101-121 16-21 112-140/80-107 94-97 Intake and Output 01/27/17 01/28/17 01/28/17 21:59 05:59 13:59 Intake Total 50 / 50 2670 / 2670 50 / 50 Output Total 51 / 51 775 / 775 Balance -1 / -1 1894 50 / 50 Weight 114 lb 14.4 oz Intake & Output: Intake & Output 01/27/17 01/28/17 01/28/17 21:59 05:59 13:59 Intake Total 50 / 50 2670 / 2670 50 / 50 Output Total 51 / 51 775 / 775 Balance -1 / -1 1894 50 / 50 Weight 114 lb 14.4 oz Intake: IV 50 / 50 2400 / 2400 50 / 50 Zosyn 2.25 gm In Dextrose 50 / 50 50 / 50 5% in Water 50 ml @ 100 mls/hr IV Q6H [facility] Rx#: [id number] Oral 270 / 270 Output: Void Amount 50 / 50 275 / 275 # of times incontinent of 1 / 1 urine Urine/Stool Mix 500 / 500 Other: # Bowel Movements 1 # of times incontinent of 1 Bowels Exam: Constitutional; Afebrile, cooperative, alert, not in distress. Eyes- No icterus, , No periorbital swelling Ears- Ext ear normal, hearing normal to conversation. Neck- Midline trachea, supple Respiratory system: Air Entry equal on both sides, No crackles or wheezing, no rhonchi. CVS- Rate tachycardic rhythm irregular, S1,S2 heard, no gallop, no rub. 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 Medical - PN: Obj Da - Labs CBC & Chem 7: 01/28/17 04:10 01/28/17 04:10 Labs: Abnormal Lab Results 01/28/17 01/28/17 01/28/17 04:10 04:10 04:10 RBC 3.67 L Hgb 11.7 L Hct 34.2 L RDW 16.1 H Lymph # PT 25.0 H INR 2.2 H Carbon Dioxide 19 L Anion Gap Glucose 141 H Magnesium 1.2 L GGT 64 H Alkaline Phosphatase 141 H Total Protein 5.7 L 01/27/17 01/27/17 01/27/17 04:12 04:12 04:12 RBC 3.52 L Hgb 11.4 L Hct 32.8 L RDW 15.4 H Lymph # PT 26.6 H INR 2.4 H Carbon Dioxide 21 L Anion Gap 18.0 H Glucose 149 H Magnesium GGT 41 H Alkaline Phosphatase 126 H Total Protein 01/26/17 01/26/17 01/26/17 05:57 05:57 05:57 RBC 3.80 L Hgb 11.9 L Hct 34.9 L RDW 15.7 H Lymph # 1.4 L PT 30.7 H INR 2.8 H Carbon Dioxide Anion Gap Glucose 141 H Magnesium 1.4 L GGT Alkaline Phosphatase Total Protein Meds: Medications Acetaminophen (Tylenol) 650 mg PO Q6HP PRN PRN Reason: PAIN/FEVER > 101 Acetaminophen/Hydrocodone Bitart ([place] 5/325mg) 1 tab PO Q4HP PRN PRN Reason: Pain Last Admin: 01/27/17 20:44 Dose: 1 tab Albuterol Sulfate (Ventolin) 2.5 mg NEB Q2HP PRN PRN Reason: Shortness Of Breath Atorvastatin Calcium (Lipitor) 20 mg PO HS [facility] Last Admin: 01/27/17 20:43 Dose: 20 mg Calcitonin [place] (Miacalcin) 1 spray NS DAILY [facility] Last Admin: 01/28/17 09:39 Dose: Not Given Calcium Carbonate/Glycine (Tums) 1,000 mg CHEWED Q4HP PRN PRN Reason: Dyspepsia Calcium/Vitamin D (Calcium W/Vit D3) 500 mg PO DAILY [facility] Last Admin: 01/28/17 09:39 Dose: 500 mg Dextrose (Dextrose 50%) 0 ml IV UD PRN PRN Reason: Hypoglycemia Diagnostic Test (Pha) (Accu-Chek) 1 each FS ACHS [facility] Last Admin: 01/28/17 08:00 Dose: 1 each Digoxin (Lanoxin) 125 mcg PO DAILY@1400 [facility] Last Admin: 01/27/17 14:04 Dose: 125 mcg Docusate Sodium (Colace) 100 mg PO BID PRN PRN Reason: Constipation Sodium Chloride (Sodium Chloride 0.45%) 1,000 mls @ 50 mls/hr IV .Q20H [facility] Last Admin: 01/28/17 05:23 Dose: 50 mls/hr Ceftriaxone Sodium 1 gm/ (Dextrose) 50 mls @ 100 mls/hr IV Q24H [facility] Insulin Human Lispro (Humalog) 0 unit SQ ACHS [facility] PRN Reason: Protocol Last Admin: 01/28/17 08:00 Dose: Not Given Lidocaine (Lidoderm) 0 patch TOPICAL DAILY@1000 PRN PRN Reason: Pain Magnesium Hydroxide (Milk Of Magnesia) 30 ml PO DAILYP PRN PRN Reason: Constipation Magnesium Oxide (Magnesium Oxide) 400 mg PO BID [facility] Last Admin: 01/28/17 09:38 Dose: 400 mg Metformin HCl (Glucophage) 500 mg PO BIDCC [facility] Last Admin: 01/28/17 09:39 Dose: 500 mg Metoprolol Tartrate (Lopressor) 100 mg PO BID [facility] Last Admin: 01/28/17 09:38 Dose: 100 mg Naloxone HCl (Narcan) 0.1 mg IV Q2MIN PRN PRN Reason: Opiate Reversal Ondansetron HCl (Zofran) 4 mg IV Q6HP PRN PRN Reason: Nausea And Vomiting Forteo (Teriparatide ) Injection 20 Mcg/Dose 1 dose SC DAILY [facility] Potassium/Phosphorus/Sodium (Neutra Phos) 1 packet PO BID [facility] Last Admin: 01/28/17 09:37 Dose: 1 packet Sodium Chloride (Saline Flush) 10 ml IV Q8 [facility] Last Admin: 01/28/17 05:23 Dose: 10 ml Vitamin B Complex (Vitamin B Complex) 1 cap PO DAILY [facility] Last Admin: 01/28/17 09:39 Dose: 1 cap Vitamin D (Vitamin D3) 1,000 unit PO BID [facility] Last Admin: 01/28/17 09:39 Dose: 1,000 unit Warfarin Sodium (Coumadin) 5 mg PO ONCE@1400 [facility] Stop: 01/28/17 14:01 Medical - PN: A/P - Time Spent With Patient Total time spent is greater than 50% in coordination of care (as documented) at patient's floor/unit and/or counseling patient: - Narrative A/P Narrative: UTI: Ecoli shah sensitive, d/c zosyn, use rocepin for UTI, PNA with Effusion: noted on the CXR IV zosyn and zithromax, blood cultures are neg so far. continue same Diarrhea: etiology? cdiff? stool sent for eval, d/c zosyn, started on rocephin. Pleural effusion: s/p drainage, exudative fluid as per lights criteria, culture pending, patient chest is clear today, CT chest is negative for any obstructive pathology. Likely synpneumonic effusion. Altered mental status: resolved. Acute Kidney Injury: Resolved Diabetes: continue sliding scale insulin, resume home meds at discharge Atrial fibrilaltion: Monitor on tele s/p pacemaker, HR elevated, Increase dose of metoprolol to 100mg bid, continue dig, IV cardizem prn. Full code Diabetic Diet. Medical - PN: Qual - VTE Deep Vein Thrombosis/Pulmonary Embolism Present on Admission: No
[2017-01-28] MEDS: FORTEO SC SCH ×3 (11:12→12:28)
[2017-01-28] MEDS: cefTRIAXone 1 GM in DEXTROSE 5% IN WATER 50 ML IV SCH (11:44)
[2017-01-28] MEDS ORDERED: DILTIAZEM 25 MG/5 ML VIAL IV ONE (12:29)
[2017-01-28] MEDS: DIGOXIN 125 MCG TABLET PO SCH (13:45)
[2017-01-28] MEDS ORDERED: WARFARIN 5 MG TABLET PO ONE (14:00)
[2017-01-28] MEDS: LOPERAMIDE 2 MG CAPSULE PO PRN (15:58)
[2017-01-28] MEDS: ATORVASTATIN 20 MG TABLET PO SCH (20:06)
[2017-01-28] MEDS: ACETAMINOPHEN 325 MG TABLET PO PRN (20:06)
[2017-01-29 05:29] LABS: Basophils # (Auto) 0.1 K/mcL (0.0-0.3); Eosinophils # (Auto) 0.1 K/mcL (0.0-0.7); Granulocytes % (Auto) 63.8 % (38.0-78.0); Lymphocytes # (Auto) 1.7 K/mcL (1.5-4.8); Lymphocytes % (Auto) 23.2 % (15.5-49.0); Mean Cell Volume 92.7 fL (80.0-100.0); Mean Corpuscular HGB Conc 34.3 g/dL (31.0-36.0); Mean Corpuscular Hemoglobin 31.8 pg (26.0-34.0); Monocytes # (Auto) 0.7 K/mcL (0.1-0.9); Platelet Count 223 K/mcL (140-440); RBC 3.56 M/mcL (4.00-5.20); Red Cell Distribution Width 15.7 % (11.5-14.5)
[2017-01-29] MEDS: 0.45 % SODIUM CHLORIDE 1,000 ML IV SCH (05:41)
[2017-01-29] MEDS: 0.9 % SODIUM CHLORIDE 10 ML SYRINGE IV SCH ×3 (05:42→21:20)
[2017-01-29 06:04] LABS: ALT/SGPT 46 U/l (0-40); Albumin/Globulin Ratio 1.2 (1.0-2.3); Alkaline Phosphatase 164 U/L (39-117); Bilirubin,Direct < 0.2 mg/dL (0.0-0.3); Blood Urea Nitrogen 16 mg/dl (8-23); Gamma Glutamyl Transpeptidase 79 U/L (5-36); Magnesium 1.4 mg/dL (1.6-2.5); Uric Acid 4.4 mg/dL (2.5-8.0)
--- NOTE | 2017-01-29 06:49 | Echocardiogram Report ---
ECHOCARDIOGRAM: 2-D and M-mode echocardiography with cardiac Doppler and color flow imaging were performed with a [employer] Aplio MX. Indication is atrial fibrillation. Both atria appeared mildly enlarged. RV and LV cavity size appeared normal as did LV wall thickness and systolic performance. Estimated ejection fraction is 60%. The aortic root diameter appeared normal. The aortic valve appeared trileaflet and normal. There was no evidence for aortic stenosis by Doppler interrogation. Aortic regurgitation, probably mild (1+), was noted. The mitral and tricuspid valves appeared unremarkable. Doppler interrogation of LV inflow disclosed a monophasic spectral dispersion pattern related to absent AV synchrony. Mitral regurgitation, probably mild (1+), was noted. Pulmonary venous interrogation disclosed ''d'' wave dominance indicating elevated pulmonary wedge pressure. The pulmonic valve showed absent ''a''wave in the absence of AV synchrony. Pulmonary artery acceleration time appeared shortened. There was no evidence for pulmonic stenosis. Pulmonic regurgitation, probably mild (1+), and tricuspid regurgitation, probably moderate to moderately severe (2-3+), were demonstrated. No intracardiac shunting was appreciated. There was no evidence for pericardial effusion. The IVC was dilated and varied only slightly with the respiratory cycle indicating raised CVP. Calculated estimate of PA systolic pressure is moderately elevated at 45 mmHg. Atrial fibrillation with a rapid response and IVCD was present. CONCLUSION:Aortic regurgitation, probably mild (1+). Mitral regurgitation, probably mild (1+), with mild LA enlargement, elevated pulmonary wedge pressure/mild and probably passive pulmonary hypertension, mild RA enlargement and raised CVP. Since previous study 05/07/2007, a sinus mechanism is not present, rate is increased, and the above findings are appreciated. (See accompanying M-mode and Doppler reports for quantitation.) ECHOCARDIOGRAPHY M-MODE CALCULATIONS: HT: 5'5 WT: 114 BSA: 1.56 m2 NORMALS AORTA: AORTIC ROOT 3.3 2.0-3.7 cm LEFT ATRIUM 3.5 1.9-4.0 cm MITRAL VALVE: EXCURSION 1.6 1.9-2.7 cm EPSS 0 <0.5 cm LT VENTRICLE: LVID (ED) 4.0 3.5-5.7 cm LVID (ES) 2.5 SEPTAL THICKNESS 1.2 0.6-1.1 cm SEPTAL EXCURSION 0.2 0.3-0.8 cm LVPW THICKNESS 1.2 0.6-1.1 cm LVPW EXCURSION 1.2 0.9-1.4 cm MINOR AXIS FS 3.8 25%-40% RT VENTRICLE: RVID (ED) 2.3 0.9-2.6 cm(up to 3cm if LLD) QUALITATIVE DOPPLER FLOW STUDIES MITRAL VALVE MR, probably mild (1+) AORTIC VALVE AR, probably mild (1+) TRICUSPID VALVE TR, probably moderate to moderately severe (2-3+) PULMONIC VALVE CT, probably mild (1+) QUANTITATIVE DOPPLER FLOW STUDIES SAMPLE SITES VELOCITIES PEAK PRESSURE VALVE AREA and/or VALVE WINDOW (PEAK,M/SEC) DROP (GRADIENT) PRESSURE HALF-TIME MV (Diastole) 1.1 -- -- MV (Systole) 3.7 -- -- AO (Diastole) 3.5 -- -- AO (Systole) 1.0 -- -- TV (Systole) 2.5 -- -- PV (Systole) 0.6 -- -- PV (Diastole) 2.2 LWG:felisa Job ID: [id number] Doc ID: [id number] Alon Hawkins MD
[2017-01-29] MEDS ORDERED: MAGNESIUM SULFATE 2 GM/50 ML BAG IV ONE (07:06)
[2017-01-29] MEDS: INSULIN LISPRO 1 UNIT/0.01 ML UNIT SQ SCH ×4 (07:30→21:20)
[2017-01-29] MEDS: LOPERAMIDE 2 MG CAPSULE PO PRN (10:16)
[2017-01-29] MEDS: HYDROcodone/APAP 5/325MG TABLET PO PRN ×3 (10:16→19:09)
[2017-01-29] MEDS: MAGNESIUM OXIDE 400 MG TABLET PO SCH ×2 (10:16→20:05)
[2017-01-29] MEDS: METOPROLOL TARTRATE 50 MG TABLET PO SCH ×2 (10:16→20:05)
[2017-01-29] MEDS: metFORMIN 500 MG TABLET PO SCH ×2 (10:16→18:27)
[2017-01-29] MEDS: CALCITONIN NASAL SPRAY 3.7ML BOTTLE NS SCH (10:17)
[2017-01-29] MEDS: cefTRIAXone 1 GM in DEXTROSE 5% IN WATER 50 ML IV SCH (10:17)
[2017-01-29] MEDS: FORTEO SC SCH (10:18)
[2017-01-29] MEDS: VITAMIN D3 1,000 UNIT TABLET PO SCH ×2 (10:37→20:05)
[2017-01-29] MEDS: CALCIUM W/VIT D3 500 MG TABLET PO SCH (10:37)
[2017-01-29] MEDS: ACETAMINOPHEN 325 MG TABLET PO PRN (10:37)
[2017-01-29] MEDS: VITAMIN B COMPLEX 1 CAPSULE PO SCH (10:37)
--- NOTE | 2017-01-29 10:55 | Internal Med Progress Note ---
Medical - PN: Subj Patient information: Note initiated : 01/29/17 at 10:53 am Service Date, if different from initiated Date: [] Patient: Debby Perez 86 y/o F admitted on 01/24/17 for Weakness, Altered Mental Status, Stroke Symptoms. Chief Complaint: [] Interval history: January 24, 2017:Chief complaint: weakness ,depressed level of consciousness, dysuria History of present illness: Ms. Perez is a 86 year old female is sent to emergency room by her and daughters. hey report that she really has not been doing very well since November of this year, when she was admitted to [facility] with compression fractures of her spine. She apparently underwent several vertebral plasty procedures, and ultimately was sent to [facility] for transition care. She improved somewhat, but then apparently was diagnosed with urinary tract infection about 4 days ago, and was started on Bactrim. Her family says she really has just not been doing well since then, and has had decreased oral intake and increased fatigue This evening she was walking to dinner with her family's assistance, and suddenly just could not stand up anymore, and slid down to the floor. They report she sort of slumped over and they really couldn' t get much of a response out of her for several minutes. They then called 911. The ER M.D. reports that the ambulance crew set her initial O2 saturation was 80 % on room air. However this increased to normal by the time of arrival at the ER. ER evaluation shows pyuria and also suggestive of a left base pneumonia. She did have a CT scan of her brain which did not show any acute findings. the patient is awake, but often looks to her for answers, and seems very fatigued. She says she has not been able to get warm for the last couple of days. She also had a significant headache earlier today. She has had a cough for the last 1-2 months, which is nonproductive. Her reports every now and then she grabs the left side of her abdomen and complains of sharp pain. She reports occasional palpitations and occasional nausea. Her reports that she has alternating diarrhea and constipation, with her last bowel movement yesterday. January 25, 2017: today, the patient is feeling quite a bit better. granddaughter and Staff reports that she was able to walk to the shower today, and also ate a pretty large breakfast. The patient reports she still feels significant fatigue , but definitely better than yesterday. -she denies significant current pain. She did take Tylenol with breakfast. -she does not report any obvious bleeding, regarding her elevated INR. -bNP was quite elevated yesterday but the patient denies significant shortness of breath.- -Otherwise, the patient denies subjective fever or chills, chest pain or palpitations, shortness of breath or significant cough. She denies current abdominal pain, nausea or vomiting or diarrhea She continues to have urinary frequency and incontinence. january 26, 2017; today,he patient is feeling even better than yesterday.she is still fatigued but was able to get up and walk, and data good breakfast. nurses report that last night, after using the commode, they noted she had vaginal prolapse which she has had for some time. -She denies subjective fever or chills. She has minimal cough, and denies shortness of breath. She has been working with her incentive spirometer. She denies chest pain or palpitations abdominal pain, nausea or vomiting. she denies significant dysuria. She did have loose stools today, but admits she ate several prunes yesterday. She had some minor back pain this morning, but took Tylenol and that resolved. -her family had lots of questions, including what could be done about her recurrent urinary tract infections. -she does have chronic atrial fibrillation, and rate is quite variable running in the 120sintermittently during the night. Her digoxin has been on holdbecause of initially supratherapeutic therapeutic levels. She does have a pacemaker, and is followed by cardiology. January 27: patient seen examined, sitting comfortably in the chair during my exam. Had no complaints besides fatigue. I reviewed the labs and investigations with her. Her Chest X ray done this AM showed significant worsening of the left sided pleural effusion as well as possible pna. She remains on antibiotics for UTI and PNA. The patient underwent a USG guided pleural tap and a CT scan of the Chest. 1.2 ml of fluid aspirated by Radiology. Patient otherwise did not report any other symptom. She remains tachycardic. Her HR 120-130, she will resume her dose of digoxin however given her persistant tachycardia, she was moved to tele monitoring. IV metoprolol for rate control and increase the dose of metoprolol from 50mg bid to 75mg bid. january 28: Patient seen examined, sitting comfortably in her chair today,overnight events noted. 2 episodes of diarrhea last night and one episode this AM, the patient does not have blood in stools, no abdominal pain, no nausea or vomiting , no shortness of breath or chest pains. She is othewise doing well will send stool for cdiff D/c zosyn, start on rocephin microbiology neg from pleural fluid, but pleural fluid analysis shows this is a exudative fluid, likely from pna. HR still remains high, increase dose of metoprolol to 100mg bid, continue dig, saline bolus, and prn cardizem January 29: Patient seen examined, no acute overnight events, patient doing well, HR improved but still not at goal, pleural microbiology no growth so far. Patiento n rocephin and zithromax for pna and UTI. Diarrhea improved with loperamide, cdiff is negatiev patient echo shows normal lvef, and mild pulm htn, Pt is sitting comfortably in bed, tolerating po diet well, anxious to go home. HJR still high, increase dose of metoprolol to 150mg bid. plan to d/c home vs snf in AM if HR improves and no other issues. Pertinent ROS: Denies headache, dizziness Denies chest pain, palpitations Denies cough or shortness of breath Denies abdominal pain, nausea or vomiting. - Constitutional Vitals: Vital Signs Temp Pulse Resp BP Pulse Ox 97.8 F 115 H 18 130/83 94 01/29/17 08:00 01/29/17 07:02 01/29/17 08:00 01/29/17 08:00 01/29/17 08:00 Period Temp Pulse Resp BP Sys/[place] Pulse Ox Last 24 Hr 97.4 F-98.5 F 90-116 16-20 116-131/82-93 94-97 Intake and Output 01/28/17 01/29/17 01/29/17 21:59 05:59 13:59 Intake Total 1000 / 1000 1100 / 1100 1200 / 1200 Output Total 500 / 500 650 / 650 800 / 800 Balance 500 / 500 450 / 450 400 / 400 Weight 117 lb 11.2 oz Intake & Output: Intake & Output 01/28/17 01/29/17 01/29/17 21:59 05:59 13:59 Intake Total 1000 / 1000 1100 / 1100 1200 / 1200 Output Total 500 / 500 650 / 650 800 / 800 Balance 500 / 500 450 / 450 400 / 400 Weight 117 lb 11.2 oz Intake: IV 300 / 300 1000 / 1000 Sodium Chloride 0.45% 1, 1000 / 1000 000 ml @ 50 mls/hr IV . Q20H [facility] Rx#:[id number] Sodium Chloride 0.9% 250 250 / 250 ml @ Wide Open IV BOLUS ONE Rx#:[id number] Rocephin 1 gm In Dextrose 50 / 50 5% in Water 50 ml @ 100 mls/hr IV Q24H [facility] Rx#: [id number] Oral 700 / 700 100 / 100 1200 / 1200 Output: Urine/Stool Mix 500 / 500 650 / 650 800 / 800 Other: Meal Dinner Breakfast Percent of Meal Consumed 75% 100% Feeding Ability Independent # Bowel Movements 1 Exam: Constitutional; Afebrile, cooperative, alert, not in distress. Eyes- No icterus, , No periorbital swelling Ears- Ext ear normal, hearing normal to conversation. Neck- Midline trachea, supple Respiratory system: Air Entry equal on both sides, No crackles or wheezing, no rhonchi. CVS- Rate tachycardic rhythm irregular, S1,S2 heard, no gallop, no rub. Abdomen- Soft nontender abdomen, no organomegaly, no tenderness, no guarding or rigidity, ORTHOPEDIC SPECIALIST- AOOx3, moving all extremities, no gross focal deficit noted. Medical - PN: Obj Da - Labs CBC & Chem 7: 01/29/17 04:00 01/29/17 04:00 Labs: Abnormal Lab Results 01/29/17 01/29/17 01/29/17 08:15 04:00 04:00 RBC 3.56 L Hgb 11.3 L Hct 33.0 L RDW 15.7 H PT 24.7 H INR 2.1 H Carbon Dioxide 20 L Anion Gap Creatinine 0.5 L Glucose 118 H Magnesium 1.4 L GGT 79 H AST 58 H ALT 46 H Alkaline Phosphatase 164 H Total Protein 5.6 L Albumin 3.0 L 01/28/17 01/28/17 01/28/17 04:10 04:10 04:10 RBC 3.67 L Hgb 11.7 L Hct 34.2 L RDW 16.1 H PT 25.0 H INR 2.2 H Carbon Dioxide 19 L Anion Gap Creatinine Glucose 141 H Magnesium 1.2 L GGT 64 H AST ALT Alkaline Phosphatase 141 H Total Protein 5.7 L Albumin 01/27/17 01/27/17 01/27/17 04:12 04:12 04:12 RBC 3.52 L Hgb 11.4 L Hct 32.8 L RDW 15.4 H PT 26.6 H INR 2.4 H Carbon Dioxide 21 L Anion Gap 18.0 H Creatinine Glucose 149 H Magnesium GGT 41 H AST ALT Alkaline Phosphatase 126 H Total Protein Albumin Meds: Medications Acetaminophen (Tylenol) 650 mg PO Q6HP PRN PRN Reason: PAIN/FEVER > 101 Last Admin: 01/29/17 10:37 Dose: 650 mg Acetaminophen/Hydrocodone Bitart ([place] 5/325mg) 1 tab PO Q4HP PRN PRN Reason: Pain Last Admin: 01/29/17 10:16 Dose: 1 tab Albuterol Sulfate (Ventolin) 2.5 mg NEB Q2HP PRN PRN Reason: Shortness Of Breath Atorvastatin Calcium (Lipitor) 20 mg PO HS [facility] Last Admin: 01/28/17 20:06 Dose: 20 mg Calcitonin [place] (Miacalcin) 1 spray NS DAILY [facility] Last Admin: 01/29/17 10:17 Dose: Not Given Calcium Carbonate/Glycine (Tums) 1,000 mg CHEWED Q4HP PRN PRN Reason: Dyspepsia Calcium/Vitamin D (Calcium W/Vit D3) 500 mg PO DAILY [facility] Last Admin: 01/29/17 10:37 Dose: 500 mg Dextrose (Dextrose 50%) 0 ml IV UD PRN PRN Reason: Hypoglycemia Diagnostic Test (Pha) (Accu-Chek) 1 each FS ACHS [facility] Last Admin: 01/29/17 10:47 Dose: 1 each Digoxin (Lanoxin) 125 mcg PO DAILY@1400 [facility] Last Admin: 01/28/17 13:45 Dose: 125 mcg Docusate Sodium (Colace) 100 mg PO BID PRN PRN Reason: Constipation Sodium Chloride (Sodium Chloride 0.45%) 1,000 mls @ 50 mls/hr IV .Q20H [facility] Last Admin: 01/29/17 05:41 Dose: 50 mls/hr Ceftriaxone Sodium 1 gm/ (Dextrose) 50 mls @ 100 mls/hr IV Q24H [facility] Last Admin: 01/29/17 10:17 Dose: 100 mls/hr Insulin Human Lispro (Humalog) 0 unit SQ ACHS [facility] PRN Reason: Protocol Last Admin: 01/29/17 07:30 Dose: Not Given Lidocaine (Lidoderm) 0 patch TOPICAL DAILY@1000 PRN PRN Reason: Pain Loperamide HCl (Imodium) 2 mg PO PRN PRN PRN Reason: Diarrhea Last Admin: 01/29/17 10:16 Dose: 2 mg Magnesium Hydroxide (Milk Of Magnesia) 30 ml PO DAILYP PRN PRN Reason: Constipation Magnesium Oxide (Magnesium Oxide) 400 mg PO BID [facility] Last Admin: 01/29/17 10:16 Dose: 400 mg Metformin HCl (Glucophage) 500 mg PO BIDCC [facility] Last Admin: 01/29/17 10:16 Dose: 500 mg Metoprolol Tartrate (Lopressor) 150 mg PO BID [facility] Last Admin: 01/29/17 10:16 Dose: 150 mg Naloxone HCl (Narcan) 0.1 mg IV Q2MIN PRN PRN Reason: Opiate Reversal Ondansetron HCl (Zofran) 4 mg IV Q6HP PRN PRN Reason: Nausea And Vomiting Forteo (Teriparatide ) Injection 20 Mcg/Dose 1 dose SC DAILY [facility] Last Admin: 01/29/17 10:18 Dose: 1 dose Sodium Chloride (Saline Flush) 10 ml IV Q8 [facility] Last Admin: 01/29/17 05:42 Dose: Not Given Vitamin B Complex (Vitamin B Complex) 1 cap PO DAILY [facility] Last Admin: 01/29/17 10:37 Dose: 1 cap Vitamin D (Vitamin D3) 1,000 unit PO BID [facility] Last Admin: 01/29/17 10:37 Dose: 1,000 unit Warfarin Sodium (Coumadin) 5 mg PO ONCE@1400 ONE Stop: 01/29/17 14:01 Medical - PN: A/P - Time Spent With Patient Total time spent is greater than 50% in coordination of care (as documented) at patient's floor/unit and/or counseling patient: - Narrative A/P Narrative: UTI: Ecoli shah sensitive, on rocephin, PNA with Effusion: noted on the CXR IV zosyn and zithromax, blood cultures are neg so far, presently on rocephin , s/p zithromax Diarrhea: etiology? meds related, imodium prn, on mag oxide for low mg, cdiff neg Pleural effusion: s/p drainage, exudative fluid as per lights criteria, culture pending, patient chest is clear today, CT chest is negative for any obstructive pathology. Likely synpneumonic effusion. microbiology is neg so far Altered mental status: resolved. Acute Kidney Injury: Resolved Diabetes: continue sliding scale insulin, resume home meds at discharge Atrial fibrillation: Monitor on tele s/p pacemaker, HR uncontrolled, increase dose of metoprolol to 150mg bid, continue digoxin. Full code Diabetic Diet. Medical - PN: Qual - VTE Deep Vein Thrombosis/Pulmonary Embolism Present on Admission: No
--- NOTE | 2017-01-29 11:24 | Non-GYN Cytology Report ---
NON OFFICE SERVICES ASSISTANT SPECIMEN NG DX CATEGORY Negative MICROSCOPIC DIAGNOSIS PLEURAL FLUID, LEFT, THORACENTESIS: -- NEGATIVE FOR MALIGNANT CELLS. -- HISTIOCYTES, REACTIVE MESOTHELIAL CELLS, AND MIXED INFLAMMATORY CELLS. MICROSCOPIC DESCRIPTION Cytologic preparations demonstrate scattered histiocytes and reactive mesothelial cells within a background of neutrophils, lymphocytes, and rare eosinophils. No malignant cells are identified. CLINICAL HISTORY Left pleural effusion. EXTERNAL COMMENT Electronically Signed by: Alma Rosa Moran D.O.
[2017-01-29] MEDS ORDERED: WARFARIN 5 MG TABLET PO ONE (14:00)
[2017-01-29] MEDS: DIGOXIN 125 MCG TABLET PO SCH (14:23)
[2017-01-29] MEDS: ATORVASTATIN 20 MG TABLET PO SCH (20:05)
[2017-01-30] MEDS: 0.45 % SODIUM CHLORIDE 1,000 ML IV SCH ×2 (00:20→04:01)
[2017-01-30] MEDS: HYDROcodone/APAP 5/325MG TABLET PO PRN ×3 (04:56→14:18)
[2017-01-30] MEDS: 0.9 % SODIUM CHLORIDE 10 ML SYRINGE IV SCH ×3 (05:39→22:00)
[2017-01-30 06:24] LABS: ALT/SGPT 53 U/l (0-40); Albumin 3.2 gm/dL (3.2-5.2); Albumin/Globulin Ratio 1.1 (1.0-2.3); Alkaline Phosphatase 207 U/L (39-117); Bilirubin,Direct < 0.2 mg/dL (0.0-0.3); Blood Urea Nitrogen 12 mg/dl (8-23); Gamma Glutamyl Transpeptidase 119 U/L (5-36); Magnesium 1.5 mg/dL (1.6-2.5); Uric Acid 5.1 mg/dL (2.5-8.0)
[2017-01-30] MEDS ORDERED: MAGNESIUM SULFATE 2 GM/50 ML BAG IV ONE (07:35)
[2017-01-30 08:15] LABS: Basophils # (Auto) 0 K/mcL (0.0-0.3); Basophils % (Auto) 0.4 % (0.0-2.0); Eosinophils # (Auto) 0.1 K/mcL (0.0-0.7); Granulocytes % (Auto) 84.7 % (38.0-78.0); Lymphocytes # (Auto) 1.2 K/mcL (1.5-4.8); Lymphocytes % (Auto) 10.1 % (15.5-49.0); Mean Cell Volume 89.4 fL (80.0-100.0); Mean Corpuscular HGB Conc 33.9 g/dL (31.0-36.0); Mean Corpuscular Hemoglobin 30.3 pg (26.0-34.0); Monocytes # (Auto) 0.4 K/mcL (0.1-0.9); Monocytes % (Auto) 3.8 % (1.0-12.0); Platelet Count 243 K/mcL (140-440); RBC 4.05 M/mcL (4.00-5.20); Red Cell Distribution Width 15.7 % (11.5-14.5)
[2017-01-30] MEDS ORDERED: VANCOMYCIN PER PHARMACY IV SCH (08:57)
[2017-01-30] MEDS: INSULIN LISPRO 1 UNIT/0.01 ML UNIT SQ SCH ×4 (08:57→21:08)
[2017-01-30] MEDS: ACETAMINOPHEN 325 MG TABLET PO PRN ×2 (09:04→21:09)
[2017-01-30] MEDS: FORTEO SC SCH (09:04)
[2017-01-30] MEDS: MAGNESIUM OXIDE 400 MG TABLET PO SCH ×2 (09:05→21:09)
[2017-01-30] MEDS: METOPROLOL TARTRATE 50 MG TABLET PO SCH ×2 (09:05→21:09)
[2017-01-30] MEDS: DILTIAZEM 30 MG TABLET PO SCH ×2 (09:05→14:18)
[2017-01-30] MEDS: metFORMIN 500 MG TABLET PO SCH ×2 (09:05→17:05)
[2017-01-30] MEDS: CALCITONIN NASAL SPRAY 3.7ML BOTTLE NS SCH (09:07)
[2017-01-30] MEDS: CALCIUM W/VIT D3 500 MG TABLET PO SCH (09:11)
[2017-01-30] MEDS: VITAMIN B COMPLEX 1 CAPSULE PO SCH (09:11)
[2017-01-30] MEDS: VITAMIN D3 1,000 UNIT TABLET PO SCH ×2 (09:11→21:16)
--- NOTE | 2017-01-30 09:25 | Internal Med Progress Note ---
Medical - PN: Subj Patient information: Note initiated : 01/30/17 at 9:22 am Service Date, if different from initiated Date: [] Patient: Debby Perez 86 y/o F admitted on 01/24/17 for Weakness, Altered Mental Status, Stroke Symptoms. Chief Complaint: [] Interval history: January 24, 2017:Chief complaint: weakness ,depressed level of consciousness, dysuria History of present illness: Ms. Perez is a 86 year old female is sent to emergency room by her and daughters. hey report that she really has not been doing very well since November of this year, when she was admitted to [facility] with compression fractures of her spine. She apparently underwent several vertebral plasty procedures, and ultimately was sent to [place] for transition care. She improved somewhat, but then apparently was diagnosed with urinary tract infection about 4 days ago, and was started on Bactrim. Her family says she really has just not been doing well since then, and has had decreased oral intake and increased fatigue This evening she was walking to dinner with her family's assistance, and suddenly just could not stand up anymore, and slid down to the floor. They report she sort of slumped over and they really couldn' t get much of a response out of her for several minutes. They then called 911. The ER M.D. reports that the ambulance crew set her initial O2 saturation was 80 % on room air. However this increased to normal by the time of arrival at the ER. ER evaluation shows pyuria and also suggestive of a left base pneumonia. She did have a CT scan of her brain which did not show any acute findings. the patient is awake, but often looks to her for answers, and seems very fatigued. She says she has not been able to get warm for the last couple of days. She also had a significant headache earlier today. She has had a cough for the last 1-2 months, which is nonproductive. Her reports every now and then she grabs the left side of her abdomen and complains of sharp pain. She reports occasional palpitations and occasional nausea. Her reports that she has alternating diarrhea and constipation, with her last bowel movement yesterday. January 25, 2017: today, the patient is feeling quite a bit better. granddaughter and Staff reports that she was able to walk to the shower today, and also ate a pretty large breakfast. The patient reports she still feels significant fatigue , but definitely better than yesterday. -she denies significant current pain. She did take Tylenol with breakfast. -she does not report any obvious bleeding, regarding her elevated INR. -bNP was quite elevated yesterday but the patient denies significant shortness of breath.- -Otherwise, the patient denies subjective fever or chills, chest pain or palpitations, shortness of breath or significant cough. She denies current abdominal pain, nausea or vomiting or diarrhea She continues to have urinary frequency and incontinence. january 26, 2017; today,he patient is feeling even better than yesterday.she is still fatigued but was able to get up and walk, and data good breakfast. nurses report that last night, after using the commode, they noted she had vaginal prolapse which she has had for some time. -She denies subjective fever or chills. She has minimal cough, and denies shortness of breath. She has been working with her incentive spirometer. She denies chest pain or palpitations abdominal pain, nausea or vomiting. she denies significant dysuria. She did have loose stools today, but admits she ate several prunes yesterday. She had some minor back pain this morning, but took Tylenol and that resolved. -her family had lots of questions, including what could be done about her recurrent urinary tract infections. -she does have chronic atrial fibrillation, and rate is quite variable running in the 120sintermittently during the night. Her digoxin has been on holdbecause of initially supratherapeutic therapeutic levels. She does have a pacemaker, and is followed by cardiology. January 27: patient seen examined, sitting comfortably in the chair during my exam. Had no complaints besides fatigue. I reviewed the labs and investigations with her. Her Chest X ray done this AM showed significant worsening of the left sided pleural effusion as well as possible pna. She remains on antibiotics for UTI and PNA. The patient underwent a USG guided pleural tap and a CT scan of the Chest. 1.2 ml of fluid aspirated by Radiology. Patient otherwise did not report any other symptom. She remains tachycardic. Her HR 120-130, she will resume her dose of digoxin however given her persistant tachycardia, she was moved to tele monitoring. IV metoprolol for rate control and increase the dose of metoprolol from 50mg bid to 75mg bid. january 28: Patient seen examined, sitting comfortably in her chair today,overnight events noted. 2 episodes of diarrhea last night and one episode this AM, the patient does not have blood in stools, no abdominal pain, no nausea or vomiting , no shortness of breath or chest pains. She is othewise doing well will send stool for cdiff D/c zosyn, start on rocephin microbiology neg from pleural fluid, but pleural fluid analysis shows this is a exudative fluid, likely from pna. HR still remains high, increase dose of metoprolol to 100mg bid, continue dig, saline bolus, and prn cardizem January 29: Patient seen examined, no acute overnight events, patient doing well, HR improved but still not at goal, pleural microbiology no growth so far. Patiento n rocephin and zithromax for pna and UTI. Diarrhea improved with loperamide, cdiff is negative patient echo shows normal lvef, and mild pulm htn, Pt is sitting comfortably in bed, tolerating po diet well, anxious to go home. HJR still high, increase dose of metoprolol to 150mg bid. plan to d/c home vs snf in AM if HR improves and no other issues. January 30: The patient seen examined, no acute overnight issues, sitting comfortably in bed, unfortunately her HR is still not under good control, Her baseline HR is improved but HR goes up with minimal activity, even talking makes her HR go to 130s. She remains on room air, Her echo reviewed, cvp is raised, but clinically she does not appear fluid overloaded. Her WBC count is up today, her CXR ordered which shows possible infiltrate and recurrence of pna on the left lower lobe. Antibiotics changed to zosyn and vancomycin now. Patient started on cardizem 30mg po q8 for better rate control. will check tsh, t3 and t4, repeat blood cultures, check procalcitonin. Pt not ready for discharge. Pertinent ROS: Denies headache, dizziness Denies chest pain, palpitations Denies cough or shortness of breath Denies abdominal pain, nausea or vomiting. Additional PMFSH (Level 3 Only): reviewed - Constitutional Vitals: Vital Signs Temp Pulse Resp BP Pulse Ox 98.8 F 99 H 18 156/08 95 05/26/17 04:00 01/30/17 04:00 01/30/17 04:00 01/30/17 04:00 01/30/17 04:00 Period Temp Pulse Resp BP Sys/[place] Pulse Ox Last 24 Hr 97.6 F-98.8 F 99-109 16-20 123-156/08-101 95-99 Intake and Output 01/29/17 01/30/17 01/30/17 21:59 05:59 13:59 Intake Total 520 / 520 1400 / 1400 Output Total 400 / 400 1150 / 1150 Balance 120 / 120 250 / 250 Weight 121 lb 3.2 oz Intake & Output: Intake & Output 01/29/17 01/30/17 01/30/17 21:59 05:59 13:59 Intake Total 520 / 520 1400 / 1400 Output Total 400 / 400 1150 / 1150 Balance 120 / 120 250 / 250 Weight 121 lb 3.2 oz Intake: IV 1000 / 1000 Sodium Chloride 0.45% 1, 1000 / 1000 000 ml @ 50 mls/hr IV . Q20H [facility] Rx#:[id number] Oral 520 / 520 400 / 400 Output: Void Amount 400 / 400 1150 / 1150 Other: Meal Dinner Percent of Meal Consumed 50% Feeding Ability Assist with Tray Set Up Exam: Constitutional; Afebrile, cooperative, alert, not in distress. Eyes- No icterus, , No periorbital swelling Ears- Ext ear normal, hearing normal to conversation. Neck- Midline trachea, supple Respiratory system: Air Entry decreased on left base, No crackles or wheezing, no rhonchi. CVS- Ratetachycardic rhythm irregular, S1,S2 heard, no gallop, no rub. Abdomen- Soft nontender abdomen, no organomegaly, no tenderness, no guarding or rigidity, CLINICAL CONSULTANT- AOOx3, moving all extremities, no gross focal deficit noted. Medical - PN: Obj Da - Labs CBC & Chem 7: 01/30/17 03:47 01/30/17 03:47 Labs: Abnormal Lab Results 01/30/17 01/30/17 01/30/17 07:46 03:57 03:47 WBC RBC Hgb Hct RDW Gran % Lymph % (Auto) Gran # Lymph # PT 26.2 H INR 2.3 H Carbon Dioxide 19 L Creatinine 0.4 L Glucose 163 H Magnesium 1.5 L GGT 119 H AST 59 H ALT 53 H Alkaline Phosphatase 207 H NT-Pro-B Natriuret Pep 3952.0 H Total Protein Albumin 01/30/17 01/29/17 01/29/17 03:47 08:15 04:00 WBC 11.9 H RBC Hgb Hct RDW 15.7 H Gran % 84.7 H Lymph % (Auto) 10.1 L Gran # 10.1 H Lymph # 1.2 L PT 24.7 H INR 2.1 H Carbon Dioxide 20 L Creatinine 0.5 L Glucose 118 H Magnesium 1.4 L GGT 79 H AST 58 H ALT 46 H Alkaline Phosphatase 164 H NT-Pro-B Natriuret Pep Total Protein 5.6 L Albumin 3.0 L 01/29/17 01/28/17 01/28/17 04:00 04:10 04:10 WBC RBC 3.56 L 3.67 L Hgb 11.3 L 11.7 L Hct 33.0 L 34.2 L RDW 15.7 H 16.1 H Gran % Lymph % (Auto) Gran # Lymph # PT INR Carbon Dioxide 19 L Creatinine Glucose 141 H Magnesium 1.2 L GGT 64 H AST ALT Alkaline Phosphatase 141 H NT-Pro-B Natriuret Pep Total Protein 5.7 L Albumin 01/28/17 04:10 WBC RBC Hgb Hct RDW Gran % Lymph % (Auto) Gran # Lymph # PT 25.0 H INR 2.2 H Carbon Dioxide Creatinine Glucose Magnesium GGT AST ALT Alkaline Phosphatase NT-Pro-B Natriuret Pep Total Protein Albumin Meds: Medications Acetaminophen (Tylenol) 650 mg PO Q6HP PRN PRN Reason: PAIN/FEVER > 101 Last Admin: 01/30/17 09:04 Dose: 650 mg Acetaminophen/Hydrocodone Bitart ([place] 5/325mg) 1 tab PO Q4HP PRN PRN Reason: Pain Last Admin: 01/30/17 09:05 Dose: 1 tab Albuterol Sulfate (Ventolin) 2.5 mg NEB Q2HP PRN PRN Reason: Shortness Of Breath Atorvastatin Calcium (Lipitor) 20 mg PO HS [place] Last Admin: 01/29/17 20:05 Dose: 20 mg Calcitonin [place] (Miacalcin) 1 spray NS DAILY [place] Last Admin: 01/30/17 09:07 Dose: Not Given Calcium Carbonate/Glycine (Tums) 1,000 mg CHEWED Q4HP PRN PRN Reason: Dyspepsia Calcium/Vitamin D (Calcium W/Vit D3) 500 mg PO DAILY [facility] Last Admin: 01/30/17 09:11 Dose: 500 mg Dextrose (Dextrose 50%) 0 ml IV UD PRN PRN Reason: Hypoglycemia Diagnostic Test (Pha) (Accu-Chek) 1 each FS ACHS [facility] Last Admin: 01/30/17 08:21 Dose: 1 each Digoxin (Lanoxin) 125 mcg PO DAILY@1400 [facility] Last Admin: 01/29/17 14:23 Dose: 125 mcg Diltiazem HCl (Cardizem) 30 mg PO Q8 [facility] Last Admin: 01/30/17 09:05 Dose: 30 mg Docusate Sodium (Colace) 100 mg PO BID PRN PRN Reason: Constipation Sodium Chloride (Sodium Chloride 0.45%) 1,000 mls @ 50 mls/hr IV .Q20H [facility] Last Admin: 01/30/17 04:01 Dose: 50 mls/hr Piperacillin Sod/Tazobactam (Sod 3.375 gm/ Dextrose) 50 mls @ 100 mls/hr IV Q6H [facility] Vancomycin HCl 750 mg/ Sodium (Chloride) 250 mls @ 250 mls/hr IV Q24H [facility] Insulin Human Lispro (Humalog) 0 unit SQ ACHS [facility] PRN Reason: Protocol Last Admin: 01/30/17 08:57 Dose: 1 unit Lidocaine (Lidoderm) 0 patch TOPICAL DAILY@1000 PRN PRN Reason: Pain Last Admin: 01/29/17 20:04 Dose: 2 patch Magnesium Hydroxide (Milk Of Magnesia) 30 ml PO DAILYP PRN PRN Reason: Constipation Magnesium Oxide (Magnesium Oxide) 400 mg PO BID [facility] Last Admin: 01/30/17 09:05 Dose: 400 mg Metformin HCl (Glucophage) 500 mg PO BIDCC [facility] Last Admin: 01/30/17 09:05 Dose: 500 mg Metoprolol Tartrate (Lopressor) 150 mg PO BID [facility] Last Admin: 01/30/17 09:05 Dose: 150 mg Naloxone HCl (Narcan) 0.1 mg IV Q2MIN PRN PRN Reason: Opiate Reversal Ondansetron HCl (Zofran) 4 mg IV Q6HP PRN PRN Reason: Nausea And Vomiting Forteo (Teriparatide ) Injection 20 Mcg/Dose 1 dose SC DAILY [facility] Last Admin: 01/30/17 09:04 Dose: 1 dose Sodium Chloride (Saline Flush) 10 ml IV Q8 [facility] Last Admin: 01/30/17 05:39 Dose: Not Given Vancomycin HCl (Vancomycin Per Pharmacy) 1 order IV UD [facility] Vitamin B Complex (Vitamin B Complex) 1 cap PO DAILY [facility] Last Admin: 01/30/17 09:11 Dose: 1 cap Vitamin D (Vitamin D3) 1,000 unit PO BID [facility] Last Admin: 01/30/17 09:11 Dose: 1,000 unit Medical - PN: A/P - Time Spent With Patient Total time spent is greater than 50% in coordination of care (as documented) at patient's floor/unit and/or counseling patient: - Narrative A/P Narrative: UTI: Ecoli shah sensitive, on zosyn now (zosyn is for pna, but will cover UTI) PNA with Effusion: effusion recurs, cxr today likely pna, antibiotics broadened to cover hcap pna, vanco and zosyn. Diarrhea: etiology? meds related, imodium prn, on mag oxide for low mg, cdiff neg Pleural effusion: microbiology neg, but it seems effusion has returned somewhat , broadened antibiotics, monitor for now, will hold off on repeat tap unless resp Altered mental status: resolved. Acute Kidney Injury: Resolved Diabetes: continue sliding scale insulin, resume home meds at discharge Atrial fibrillation: Monitor on tele s/p pacemaker, HR uncontrolled, increased dose of metoprolol to 150mg bid, continue digoxin, check level, start on cardizem 30mg q8, check tsh, t4, t3. Full code Diabetic Diet. Medical - PN: Qual - VTE Deep Vein Thrombosis/Pulmonary Embolism Present on Admission: No
[2017-01-30 09:42] LABS: T4 (Thyroxine) 6.5 ug/dl (5.0-12.0)
[2017-01-30] MEDS: PIPERACILLIN SODIUM/TAZOBACTAM 3.375 GM in DEXTROSE 5% IN WATER 50 ML IV SCH ×3 (10:25→17:21)
[2017-01-30] MEDS: VANCOMYCIN 750 MG in 0.9 % SODIUM CHLORIDE 250 ML IV SCH (10:25)
--- NOTE | 2017-01-30 10:33 | XRay Report ---
CLINICAL INFORMATION: Pleural effusion COMPARISON: 01/27/2017 FINDINGS: Small recurrent left pleural effusion appreciated. Moderate airspace disease in the left base more likely atelectasis than infiltrate. Minor atelectasis noted in the right base and tiny right pleural effusion. The heart is mildly enlarged and stable. Pacemaker and leads in stable satisfactory position. Mediastinum and pulmonary vessels are normal. IMPRESSION: Small recurrent left pleural effusion with moderate atelectasis left lower lobe. Interpreted and Authenticated by: Robbie Woods 01/30/17
[2017-01-30] MEDS ORDERED: WARFARIN 5 MG TABLET PO ONE (14:00)
[2017-01-30] MEDS: DIGOXIN 125 MCG TABLET PO SCH (14:18)
[2017-01-30 15:12] LABS: Appearance,Urine HAZY; Bacteria,Urine 0 /hpf (0); Bilirubin,Urine NEG (NEG); Color,Urine YELLOW; Glucose,Urine (UA) NEGATIVE (NEG); Leukocyte Esterase,Urine NEG /uL (NEG); Mucus,Urine FEW /hpf (0); Nitrate,Urine NEG (NEG); Protein,Urine NEG (NEG); Specific Gravity,Urine 1.015 (1.000-1.035); Urine Blood NEG mg/dL (<0.03); Urine RBC 3 /hpf (0-1); Urine Squamous Epithelial Cell 13 /hpf (0-4); Urine Transitional Epi Cells < 1 /hpf (0-2); Urine WBC 1 /hpf (0-4); Urobilinogen,Urine NEG (NEG)
[2017-01-30] MEDS: DRONEDARONE 400 MG PO SCH (19:45)
[2017-01-30] MEDS: ATORVASTATIN 20 MG TABLET PO SCH (21:08)
[2017-01-31] MEDS: PIPERACILLIN SODIUM/TAZOBACTAM 3.375 GM in DEXTROSE 5% IN WATER 50 ML IV SCH ×4 (02:51→17:53)
[2017-01-31] MEDS: 0.45 % SODIUM CHLORIDE 1,000 ML IV SCH ×2 (04:14→16:21)
[2017-01-31] MEDS: 0.9 % SODIUM CHLORIDE 10 ML SYRINGE IV SCH ×3 (05:29→21:50)
[2017-01-31] MEDS: DILTIAZEM 30 MG TABLET PO SCH ×3 (05:29→15:29)
[2017-01-31 05:50] LABS: Basophils # (Auto) 0 K/mcL (0.0-0.3); Basophils % (Auto) 0.5 % (0.0-2.0); Eosinophils # (Auto) 0.1 K/mcL (0.0-0.7); Eosinophils % (Auto) 1.3 % (0.0-7.0); Granulocytes % (Auto) 75.3 % (38.0-78.0); Lymphocytes # (Auto) 1.2 K/mcL (1.5-4.8); Lymphocytes % (Auto) 13.3 % (15.5-49.0); Mean Cell Volume 91.8 fL (80.0-100.0); Mean Corpuscular HGB Conc 34.4 g/dL (31.0-36.0); Mean Corpuscular Hemoglobin 31.5 pg (26.0-34.0); Monocytes # (Auto) 0.9 K/mcL (0.1-0.9); Monocytes % (Auto) 9.6 % (1.0-12.0); Platelet Count 241 K/mcL (140-440); Red Cell Distribution Width 15.2 % (11.5-14.5)
[2017-01-31 06:03] LABS: ALT/SGPT 55 U/l (0-40); Albumin 3.1 gm/dL (3.2-5.2); Alkaline Phosphatase 245 U/L (39-117); Bilirubin,Direct < 0.2 mg/dL (0.0-0.3); Blood Urea Nitrogen 12 mg/dl (8-23); Gamma Glutamyl Transpeptidase 146 U/L (5-36); Magnesium 1.5 mg/dL (1.6-2.5); Uric Acid 3.8 mg/dL (2.5-8.0)
[2017-01-31] MEDS ORDERED: MAGNESIUM SULFATE 32.48 MEQ in DEXTROSE 5% IN WATER 50 ML IV ONE (07:49)
[2017-01-31] MEDS: CALCITONIN NASAL SPRAY 3.7ML BOTTLE NS SCH (08:09)
[2017-01-31] MEDS: INSULIN LISPRO 1 UNIT/0.01 ML UNIT SQ SCH ×4 (08:16→20:41)
--- NOTE | 2017-01-31 08:16 | Ultrasound Report ---
CLINICAL INFORMATION: Elevated LFTs COMPARISON: None. FINDINGS: The gallbladder and bile ducts are normal - CBD is 5 mm. Liver and pancreas are normal in size and echotexture. There is no free fluid . Small right pleural effusion noted IMPRESSION: Negative gallbladder, bile ducts, liver and pancreas. Small right pleural effusion Interpreted and Authenticated by: Robbie Woods 01/31/17
[2017-01-31] MEDS: MAGNESIUM OXIDE 400 MG TABLET PO SCH ×2 (08:17→20:42)
[2017-01-31] MEDS: METOPROLOL TARTRATE 50 MG TABLET PO SCH ×2 (08:17→20:42)
[2017-01-31] MEDS: HYDROcodone/APAP 5/325MG TABLET PO PRN ×2 (08:17→13:43)
[2017-01-31] MEDS: metFORMIN 500 MG TABLET PO SCH ×2 (08:18→17:53)
[2017-01-31] MEDS: VANCOMYCIN 750 MG in 0.9 % SODIUM CHLORIDE 250 ML IV SCH (08:19)
[2017-01-31] MEDS: FORTEO SC SCH (08:20)
[2017-01-31] MEDS ORDERED: FUROSEMIDE 40 MG/4 ML VIAL IV ONE (08:38)
[2017-01-31] MEDS: ACETAMINOPHEN 325 MG TABLET PO PRN ×2 (09:15→20:42)
--- NOTE | 2017-01-31 09:22 | XRay Report ---
CLINICAL INFORMATION: Follow left pleural effusion COMPARISON: 01/30/2017 FINDINGS: Moderate cardiomegaly is unchanged. Pacemaker leads in stable satisfactory position. Mediastinum and pulmonary vessels are normal. Moderate left pleural effusion with atelectasis left base show slight worsening. Small right pleural effusion and minor atelectasis or infiltrate right base also worsening IMPRESSION: Moderate left pleural effusion with atelectasis in the left base - worsening slightly Small region of atelectasis or infiltrate right base and effusion - worsening slightly Interpreted and Authenticated by: Robbie Woods 01/31/17
[2017-01-31] MEDS: CALCIUM W/VIT D3 500 MG TABLET PO SCH (09:30)
[2017-01-31] MEDS: VITAMIN D3 1,000 UNIT TABLET PO SCH ×2 (09:30→20:42)
[2017-01-31] MEDS: VITAMIN B COMPLEX 1 CAPSULE PO SCH (09:30)
--- NOTE | 2017-01-31 09:30 | Internal Med Progress Note ---
Medical - PN: Subj Patient information: Note initiated : 01/31/17 at 9:27 am Service Date, if different from initiated Date: [] Patient: Debby Perez 86 y/o F admitted on 01/24/17 for Weakness, Altered Mental Status, Stroke Symptoms. Chief Complaint: [] Interval history: January 24, 2017:Chief complaint: weakness ,depressed level of consciousness, dysuria History of present illness: Ms. Perez is a 86 year old female is sent to emergency room by her and daughters. hey report that she really has not been doing very well since November of this year, when she was admitted to [facility] with compression fractures of her spine. She apparently underwent several vertebral plasty procedures, and ultimately was sent to [place] for transition care. She improved somewhat, but then apparently was diagnosed with urinary tract infection about 4 days ago, and was started on Bactrim. Her family says she really has just not been doing well since then, and has had decreased oral intake and increased fatigue This evening she was walking to dinner with her family's assistance, and suddenly just could not stand up anymore, and slid down to the floor. They report she sort of slumped over and they really couldn' t get much of a response out of her for several minutes. They then called 911. The ER M.D. reports that the ambulance crew set her initial O2 saturation was 80 % on room air. However this increased to normal by the time of arrival at the ER. ER evaluation shows pyuria and also suggestive of a left base pneumonia. She did have a CT scan of her brain which did not show any acute findings. the patient is awake, but often looks to her for answers, and seems very fatigued. She says she has not been able to get warm for the last couple of days. She also had a significant headache earlier today. She has had a cough for the last 1-2 months, which is nonproductive. Her reports every now and then she grabs the left side of her abdomen and complains of sharp pain. She reports occasional palpitations and occasional nausea. Her reports that she has alternating diarrhea and constipation, with her last bowel movement yesterday. January 25, 2017: today, the patient is feeling quite a bit better. granddaughter and Staff reports that she was able to walk to the shower today, and also ate a pretty large breakfast. The patient reports she still feels significant fatigue , but definitely better than yesterday. -she denies significant current pain. She did take Tylenol with breakfast. -she does not report any obvious bleeding, regarding her elevated INR. -bNP was quite elevated yesterday but the patient denies significant shortness of breath.- -Otherwise, the patient denies subjective fever or chills, chest pain or palpitations, shortness of breath or significant cough. She denies current abdominal pain, nausea or vomiting or diarrhea She continues to have urinary frequency and incontinence. january 26, 2017; today,he patient is feeling even better than yesterday.she is still fatigued but was able to get up and walk, and data good breakfast. nurses report that last night, after using the commode, they noted she had vaginal prolapse which she has had for some time. -She denies subjective fever or chills. She has minimal cough, and denies shortness of breath. She has been working with her incentive spirometer. She denies chest pain or palpitations abdominal pain, nausea or vomiting. she denies significant dysuria. She did have loose stools today, but admits she ate several prunes yesterday. She had some minor back pain this morning, but took Tylenol and that resolved. -her family had lots of questions, including what could be done about her recurrent urinary tract infections. -she does have chronic atrial fibrillation, and rate is quite variable running in the 120sintermittently during the night. Her digoxin has been on holdbecause of initially supratherapeutic therapeutic levels. She does have a pacemaker, and is followed by cardiology. January 27: patient seen examined, sitting comfortably in the chair during my exam. Had no complaints besides fatigue. I reviewed the labs and investigations with her. Her Chest X ray done this AM showed significant worsening of the left sided pleural effusion as well as possible pna. She remains on antibiotics for UTI and PNA. The patient underwent a USG guided pleural tap and a CT scan of the Chest. 1.2 ml of fluid aspirated by Radiology. Patient otherwise did not report any other symptom. She remains tachycardic. Her HR 120-130, she will resume her dose of digoxin however given her persistant tachycardia, she was moved to tele monitoring. IV metoprolol for rate control and increase the dose of metoprolol from 50mg bid to 75mg bid. january 28: Patient seen examined, sitting comfortably in her chair today,overnight events noted. 2 episodes of diarrhea last night and one episode this AM, the patient does not have blood in stools, no abdominal pain, no nausea or vomiting , no shortness of breath or chest pains. She is othewise doing well will send stool for cdiff D/c zosyn, start on rocephin microbiology neg from pleural fluid, but pleural fluid analysis shows this is a exudative fluid, likely from pna. HR still remains high, increase dose of metoprolol to 100mg bid, continue dig, saline bolus, and prn cardizem January 29: Patient seen examined, no acute overnight events, patient doing well, HR improved but still not at goal, pleural microbiology no growth so far. Patiento n rocephin and zithromax for pna and UTI. Diarrhea improved with loperamide, cdiff is negative patient echo shows normal lvef, and mild pulm htn, Pt is sitting comfortably in bed, tolerating po diet well, anxious to go home. HJR still high, increase dose of metoprolol to 150mg bid. plan to d/c home vs snf in AM if HR improves and no other issues. January 30: The patient seen examined, no acute overnight issues, sitting comfortably in bed, unfortunately her HR is still not under good control, Her baseline HR is improved but HR goes up with minimal activity, even talking makes her HR go to 130s. She remains on room air, Her echo reviewed, cvp is raised, but clinically she does not appear fluid overloaded. Her WBC count is up today, her CXR ordered which shows possible infiltrate and recurrence of pna on the left lower lobe. Antibiotics changed to zosyn and vancomycin now. Patient started on cardizem 30mg po q8 for better rate control. will check tsh, t3 and t4, repeat blood cultures, check procalcitonin. Pt not ready for discharge. January 31: Patient seen examined, no acute overnight events, HR better today, She will start on multaq today, this was a medication she was supposed to start f or uncontrolled HR by her EP physician as outpatient. The patients WBC count is better, but her LFt is slightly worse. The patient underwent a USG gall bladder this AM which was negative for obstructive lestions, only some sludge. Patient his much more tired this AM and sob on activity, repeat CXR shows worsening effusions as well as new right sided effusion. The patient is + 9L since admission. I think there is fluid overload from CHF which is contributing to effusion and shortness of breath Will give one dose of lasix today and see how she does UA shows resolved UTI. 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 Pertinent ROS: Denies headache, dizziness Denies chest pain, palpitations Denies cough but present shortness of breath. Denies abdominal pain, nausea or vomiting. Additional PMFSH (Level 3 Only): reviewed Medical History (Last Updated 01/24/17 @ 20:52 by Mary Jane Davis MD ) Compression fracture (Chronic) - Constitutional Vitals: Vital Signs Temp Pulse Resp BP Pulse Ox 98.7 F 95 H 19 114/99 97 01/31/17 06:56 01/31/17 07:13 01/31/17 07:13 01/31/17 06:56 01/31/17 07:13 Period Temp Pulse Resp BP Sys/Galindo Pulse Ox Last 24 Hr 97.8 F-98.7 F 74-95 18-19 91-150/68-107 93-98 Intake and Output 01/30/17 01/31/17 01/31/17 21:59 05:59 13:59 Intake Total 990 / 990 1250 / 1250 50 / 50 Output Total 1132 / 1132 Balance 990 / 990 118 / 118 50 / 50 Weight 121 lb 11.2 oz Intake & Output: Intake & Output 01/30/17 01/31/17 01/31/17 21:59 05:59 13:59 Intake Total 990 / 990 1250 / 1250 50 / 50 Output Total 1132 / 1132 Balance 990 / 990 118 / 118 50 / 50 Weight 121 lb 11.2 oz Intake: IV 350 / 350 1050 / 1050 50 / 50 Sodium Chloride 0.45% 1, 1000 / 1000 000 ml @ 50 mls/hr IV . Q20H [facility] Rx#:[id number] Zosyn 3.375 gm In 100 / 100 50 / 50 50 / 50 Dextrose 5% in Water 50 ml @ 100 mls/hr IV Q6H [facility] Rx#:[id number] Vancomycin 750 mg In 250 / 250 Sodium Chloride 0.9% 250 ml @ 250 mls/hr IV Q24H [facility] Rx#:[id number] Oral 640 / 640 200 / 200 Output: Void Amount 1130 / 1130 # of times incontinent of 2 / 2 urine Other: Meal Dinner Percent of Meal Consumed 90% Feeding Ability Assist with Tray Set Up # Bowel Movements 1 Exam: Constitutional; Afebrile, cooperative, alert, not in distress. Eyes- No icterus, , No periorbital swelling Ears- Ext ear normal, hearing normal to conversation. Neck- Midline trachea, supple Respiratory system: Air Entry decreased on left base, no wheezing noted, mild bibasilar crackles. CVS- Rate normal rhythm irregular, S1,S2 heard, no gallop, no rub. No edema feet Abdomen- Soft nontender abdomen, no organomegaly, no tenderness, no guarding or rigidity, SEATER GRINDER- AOOx3, moving all extremities, no gross focal deficit noted. Medical - PN: Obj Da - Labs CBC & Chem 7: 01/31/17 04:19 01/31/17 04:19 Labs: Abnormal Lab Results 01/31/17 01/31/17 01/31/17 04:19 04:19 04:19 WBC RBC 3.70 L Hgb 11.7 L Hct 34.0 L RDW 15.2 H Gran % Lymph % (Auto) 13.3 L Gran # Lymph # 1.2 L PT 35.8 H INR 3.4 H Carbon Dioxide 20 L Creatinine 0.5 L Glucose 153 H Magnesium 1.5 L GGT 146 H AST 65 H ALT 55 H Alkaline Phosphatase 245 H NT-Pro-B Natriuret Pep Total Protein Albumin 3.1 L Urine RBC Ur Squamous Epith Cells 01/30/17 01/30/17 01/30/17 14:38 07:46 03:57 WBC RBC Hgb Hct RDW Gran % Lymph % (Auto) Gran # Lymph # PT 26.2 H INR 2.3 H Carbon Dioxide Creatinine Glucose Magnesium GGT AST ALT Alkaline Phosphatase NT-Pro-B Natriuret Pep 3952.0 H Total Protein Albumin Urine RBC 3 H Ur Squamous Epith Cells 13 H 01/30/17 01/30/1717 03:47 03:47 08:15 WBC 11.9 H RBC Hgb Hct RDW 15.7 H Gran % 84.7 H Lymph % (Auto) 10.1 L Gran # 10.1 H Lymph # 1.2 L PT 24.7 H INR 2.1 H Carbon Dioxide 19 L Creatinine 0.4 L Glucose 163 H Magnesium 1.5 L GGT 119 H AST 59 H ALT 53 H Alkaline Phosphatase 207 H NT-Pro-B Natriuret Pep Total Protein Albumin Urine RBC Ur Squamous Epith Cells 01/29/17 01/29/17 04:00 04:00 WBC RBC 3.56 L Hgb 11.3 L Hct 33.0 L RDW 15.7 H Gran % Lymph % (Auto) Gran # Lymph # PT INR Carbon Dioxide 20 L Creatinine 0.5 L Glucose 118 H Magnesium 1.4 L GGT 79 H AST 58 H ALT 46 H Alkaline Phosphatase 164 H NT-Pro-B Natriuret Pep Total Protein 5.6 L Albumin 3.0 L Urine RBC Ur Squamous Epith Cells Meds: Medications Acetaminophen (Tylenol) 650 mg PO Q6HP PRN PRN Reason: PAIN/FEVER > 101 Last Admin: 01/30/17 21:09 Dose: 650 mg Acetaminophen/Hydrocodone Bitart (Shirley 5/325mg) 1 tab PO Q4HP PRN PRN Reason: Pain Last Admin: 01/31/17 08:17 Dose: 1 tab Albuterol Sulfate (Ventolin) 2.5 mg NEB Q2HP PRN PRN Reason: Shortness Of Breath Atorvastatin Calcium (Lipitor) 20 mg PO HS [facility] Last Admin: 01/30/17 21:08 Dose: 20 mg Calcitonin [place] (Miacalcin) 1 spray NS DAILY [facility] Last Admin: 01/31/17 08:09 Dose: Not Given Calcium Carbonate/Glycine (Tums) 1,000 mg CHEWED Q4HP PRN PRN Reason: Dyspepsia Last Admin: 01/30/17 10:45 Dose: 1,000 mg Calcium/Vitamin D (Calcium W/Vit D3) 500 mg PO DAILY [facility] Last Admin: 01/30/17 09:11 Dose: 500 mg Dextrose (Dextrose 50%) 0 ml IV UD PRN PRN Reason: Hypoglycemia Diagnostic Test (Pha) (Accu-Chek) 1 each FS ACHS [facility] Last Admin: 01/31/17 07:37 Dose: 1 each Digoxin (Lanoxin) 125 mcg PO DAILY@1400 [facility] Last Admin: 01/30/17 14:18 Dose: 125 mcg Diltiazem HCl (Cardizem) 30 mg PO Q8 [facility] Last Admin: 01/31/17 05:29 Dose: 30 mg Docusate Sodium (Colace) 100 mg PO BID PRN PRN Reason: Constipation Sodium Chloride (Sodium Chloride 0.45%) 1,000 mls @ 50 mls/hr IV .Q20H [facility] Last Admin: 01/31/17 04:14 Dose: 50 mls/hr Piperacillin Sod/Tazobactam (Sod 3.375 gm/ Dextrose) 50 mls @ 100 mls/hr IV Q6H [facility] Last Infusion: 01/31/17 06:00 Dose: Infused Vancomycin HCl 750 mg/ Sodium (Chloride) 250 mls @ 250 mls/hr IV Q24H [facility] Last Admin: 01/31/17 08:19 Dose: 250 mls/hr Insulin Human Lispro (Humalog) 0 unit SQ ACHS [facility] PRN Reason: Protocol Last Admin: 01/31/17 08:16 Dose: 1 unit Lidocaine (Lidoderm) 0 patch TOPICAL DAILY@1000 PRN PRN Reason: Pain Last Admin: 01/29/17 20:04 Dose: 2 patch Magnesium Hydroxide (Milk Of Magnesia) 30 ml PO DAILYP PRN PRN Reason: Constipation Magnesium Oxide (Magnesium Oxide) 400 mg PO BID [facility] Last Admin: 01/31/17 08:17 Dose: 400 mg Metformin HCl (Glucophage) 500 mg PO BIDCC [facility] Last Admin: 01/31/17 08:18 Dose: 500 mg Metoprolol Tartrate (Lopressor) 150 mg PO BID [facility] Last Admin: 01/31/17 08:17 Dose: 150 mg Naloxone HCl (Narcan) 0.1 mg IV Q2MIN PRN PRN Reason: Opiate Reversal Ondansetron HCl (Zofran) 4 mg IV Q6HP PRN PRN Reason: Nausea And Vomiting Forteo (Teriparatide ) Injection 20 Mcg/Dose 1 dose SC DAILY [facility] Last Admin: 01/31/17 08:20 Dose: 1 dose Dronedarone (Multaq) (400 Mg Tablet) 1 dose PO BID [facility] Last Admin: 01/30/17 19:45 Dose: Not Given Sodium Chloride (Saline Flush) 10 ml IV Q8 [facility] Last Admin: 01/31/17 05:29 Dose: Not Given Vancomycin HCl (Vancomycin Per Pharmacy) 1 order IV UD [facility] Vitamin B Complex (Vitamin B Complex) 1 cap PO DAILY [facility] Last Admin: 01/30/17 09:11 Dose: 1 cap Vitamin D (Vitamin D3) 1,000 unit PO BID [facility] Last Admin: 01/30/17 21:16 Dose: 1,000 unit Medical - PN: A/P - Time Spent With Patient Total time spent is greater than 50% in coordination of care (as documented) at patient's floor/unit and/or counseling patient: - Narrative A/P Narrative: UTI: Ecoli shah sensitive, on zosyn now (zosyn is for pna, but will cover UTI) UA neg yesterday. CHF/ Fluid overload: Positive 9L since admission, will start diuresis, 40mg Lasix IV today. PNA with Effusion: effusion recurs,CXR likely atelectasis vs pna, on vanco and zosyn, microbiology neg so far. Diarrhea: etiology? meds related, imodium prn, on mag oxide for low mg, cdiff neg Hypomagesemia: IV 4gms mg sulphate today, continue mag oxide. Pleural effusion: exudative effusion, on broad spectrum abx, microbiology neg, CHF is also playing a role in repeated fluid accumulation. Altered mental status: resolved. Acute Kidney Injury: Resolved Diabetes: continue sliding scale insulin, resume home meds at discharge Atrial fibrillation: Improved, on metoprolol 150bid, cardizem 30 q8, and started on multiq today, will d/c cardizem once patient has multaq x 12 hrs. Code full Diabetic Diet. Medical - PN: Qual - VTE Deep Vein Thrombosis/Pulmonary Embolism Present on Admission: No
[2017-01-31] MEDS: DRONEDARONE 400 MG PO SCH (10:21)
[2017-01-31] MEDS: DIGOXIN 125 MCG TABLET PO SCH (15:35)
[2017-01-31] MEDS: ATORVASTATIN 20 MG TABLET PO SCH (20:42)
[2017-01-31] MEDS: DRONEDARONE (MULTAQ) 400MG TABLET PO SCH (20:43)
[2017-02-01] MEDS: PIPERACILLIN SODIUM/TAZOBACTAM 3.375 GM in DEXTROSE 5% IN WATER 50 ML IV SCH ×4 (00:23→17:53)
[2017-02-01 05:47] LABS: Basophils # (Auto) 0.1 K/mcL (0.0-0.3); Basophils % (Auto) 0.6 % (0.0-2.0); Eosinophils # (Auto) 0.2 K/mcL (0.0-0.7); Lymphocytes # (Auto) 1.1 K/mcL (1.5-4.8); Lymphocytes % (Auto) 10.7 % (15.5-49.0); Mean Cell Volume 90.9 fL (80.0-100.0); Mean Corpuscular HGB Conc 34.3 g/dL (31.0-36.0); Mean Corpuscular Hemoglobin 31.2 pg (26.0-34.0); Monocytes # (Auto) 1.1 K/mcL (0.1-0.9); Monocytes % (Auto) 10.7 % (1.0-12.0); Platelet Count 243 K/mcL (140-440); RBC 3.56 M/mcL (4.00-5.20); Red Cell Distribution Width 15.4 % (11.5-14.5)
[2017-02-01 06:03] LABS: ALT/SGPT 48 U/l (0-40); Albumin 2.8 gm/dL (3.2-5.2); Albumin/Globulin Ratio 0.9 (1.0-2.3); Alkaline Phosphatase 220 U/L (39-117); Bilirubin,Direct < 0.2 mg/dL (0.0-0.3); Blood Urea Nitrogen 15 mg/dl (8-23); Gamma Glutamyl Transpeptidase 135 U/L (5-36); Magnesium 1.8 mg/dL (1.6-2.5); Uric Acid 3.9 mg/dL (2.5-8.0)
[2017-02-01] MEDS: 0.9 % SODIUM CHLORIDE 10 ML SYRINGE IV SCH ×3 (06:23→21:25)
[2017-02-01] MEDS: 0.45 % SODIUM CHLORIDE 1,000 ML IV SCH ×2 (06:32→09:53)
[2017-02-01] MEDS: INSULIN LISPRO 1 UNIT/0.01 ML UNIT SQ SCH ×4 (07:19→21:22)
[2017-02-01] MEDS: HYDROcodone/APAP 5/325MG TABLET PO PRN ×2 (07:57→14:24)
[2017-02-01] MEDS: ACETAMINOPHEN 325 MG TABLET PO PRN (07:57)
[2017-02-01] MEDS: METOPROLOL TARTRATE 50 MG TABLET PO SCH ×2 (07:58→21:23)
[2017-02-01] MEDS: MAGNESIUM OXIDE 400 MG TABLET PO SCH ×2 (07:58→21:23)
[2017-02-01] MEDS: CALCITONIN NASAL SPRAY 3.7ML BOTTLE NS SCH (07:58)
[2017-02-01] MEDS: metFORMIN 500 MG TABLET PO SCH ×2 (07:58→17:29)
[2017-02-01] MEDS: FORTEO SC SCH (07:59)
[2017-02-01] MEDS: DRONEDARONE (MULTAQ) 400MG TABLET PO SCH ×2 (07:59→21:24)
[2017-02-01] MEDS: VITAMIN B COMPLEX 1 CAPSULE PO SCH (08:14)
[2017-02-01] MEDS: CALCIUM W/VIT D3 500 MG TABLET PO SCH (08:14)
[2017-02-01] MEDS: VITAMIN D3 1,000 UNIT TABLET PO SCH ×2 (08:15→21:23)
[2017-02-01] MEDS ORDERED: FUROSEMIDE 40 MG/4 ML VIAL IV ONE ×2 (08:26→16:57)
[2017-02-01] MEDS ORDERED: METOPROLOL TARTRATE 50 MG TABLET PO SCH (08:30)
[2017-02-01] MEDS ORDERED: VANCOMYCIN 750 MG in 0.9 % SODIUM CHLORIDE 250 ML IV SCH (09:00)
--- NOTE | 2017-02-01 09:45 | XRay Report ---
CLINICAL INFORMATION: CHF COMPARISON: 01/31/2017 FINDINGS: The heart is moderately enlarged, but unchanged. Pacemaker and leads in stable satisfactory position. Mediastinum is unremarkable. Pulmonary vessels are mildly distended, but slightly improved from yesterday. Moderate left pleural effusion and consolidated atelectasis in the left lower lobe lingula is unchanged. Small right pleural effusion and infiltrate or atelectasis in the right base is also unchanged IMPRESSION: 1. Mild CHF - improved 2. Moderate left pleural effusion with consolidated atelectasis in the left lower lobe and lingula - stable 3. Small effusion and infiltrate or atelectasis right base - stable Interpreted and Authenticated by: Robbie Woods 02/01/17
[2017-02-01] MEDS: VANCOMYCIN 750 MG in 0.9 % SODIUM CHLORIDE 250 ML IV SCH ×2 (09:52→21:24)
--- NOTE | 2017-02-01 11:00 | Internal Med Progress Note ---
Medical - PN: Subj Patient information: Note initiated : 02/01/17 at 10:57 am Service Date, if different from initiated Date: [] Patient: Debby Perez 86 y/o F admitted on 01/24/17 for Weakness, Altered Mental Status, Stroke Symptoms. Chief Complaint: [] Interval history: January 24, 2017:Chief complaint: weakness ,depressed level of consciousness, dysuria History of present illness: Ms. Perez is a 86 year old female is sent to emergency room by her and daughters. hey report that she really has not been doing very well since November of this year, when she was admitted to [facility] with compression fractures of her spine. She apparently underwent several vertebral plasty procedures, and ultimately was sent to [facility] for transition care. She improved somewhat, but then apparently was diagnosed with urinary tract infection about 4 days ago, and was started on Bactrim. Her family says she really has just not been doing well since then, and has had decreased oral intake and increased fatigue This evening she was walking to dinner with her family's assistance, and suddenly just could not stand up anymore, and slid down to the floor. They report she sort of slumped over and they really couldn' t get much of a response out of her for several minutes. They then called 911. The ER M.D. reports that the ambulance crew set her initial O2 saturation was 80 % on room air. However this increased to normal by the time of arrival at the ER. ER evaluation shows pyuria and also suggestive of a left base pneumonia. She did have a CT scan of her brain which did not show any acute findings. the patient is awake, but often looks to her for answers, and seems very fatigued. She says she has not been able to get warm for the last couple of days. She also had a significant headache earlier today. She has had a cough for the last 1-2 months, which is nonproductive. Her reports every now and then she grabs the left side of her abdomen and complains of sharp pain. She reports occasional palpitations and occasional nausea. Her reports that she has alternating diarrhea and constipation, with her last bowel movement yesterday. January 25, 2017: today, the patient is feeling quite a bit better. granddaughter and Staff reports that she was able to walk to the shower today, and also ate a pretty large breakfast. The patient reports she still feels significant fatigue , but definitely better than yesterday. -she denies significant current pain. She did take Tylenol with breakfast. -she does not report any obvious bleeding, regarding her elevated INR. -bNP was quite elevated yesterday but the patient denies significant shortness of breath.- -Otherwise, the patient denies subjective fever or chills, chest pain or palpitations, shortness of breath or significant cough. She denies current abdominal pain, nausea or vomiting or diarrhea She continues to have urinary frequency and incontinence. january 26, 2017; today,he patient is feeling even better than yesterday.she is still fatigued but was able to get up and walk, and data good breakfast. nurses report that last night, after using the commode, they noted she had vaginal prolapse which she has had for some time. -She denies subjective fever or chills. She has minimal cough, and denies shortness of breath. She has been working with her incentive spirometer. She denies chest pain or palpitations abdominal pain, nausea or vomiting. she denies significant dysuria. She did have loose stools today, but admits she ate several prunes yesterday. She had some minor back pain this morning, but took Tylenol and that resolved. -her family had lots of questions, including what could be done about her recurrent urinary tract infections. -she does have chronic atrial fibrillation, and rate is quite variable running in the 120sintermittently during the night. Her digoxin has been on holdbecause of initially supratherapeutic therapeutic levels. She does have a pacemaker, and is followed by cardiology. January 27: patient seen examined, sitting comfortably in the chair during my exam. Had no complaints besides fatigue. I reviewed the labs and investigations with her. Her Chest X ray done this AM showed significant worsening of the left sided pleural effusion as well as possible pna. She remains on antibiotics for UTI and PNA. The patient underwent a USG guided pleural tap and a CT scan of the Chest. 1.2 ml of fluid aspirated by Radiology. Patient otherwise did not report any other symptom. She remains tachycardic. Her HR 120-130, she will resume her dose of digoxin however given her persistant tachycardia, she was moved to tele monitoring. IV metoprolol for rate control and increase the dose of metoprolol from 50mg bid to 75mg bid. january 28: Patient seen examined, sitting comfortably in her chair today,overnight events noted. 2 episodes of diarrhea last night and one episode this AM, the patient does not have blood in stools, no abdominal pain, no nausea or vomiting , no shortness of breath or chest pains. She is othewise doing well will send stool for cdiff D/c zosyn, start on rocephin microbiology neg from pleural fluid, but pleural fluid analysis shows this is a exudative fluid, likely from pna. HR still remains high, increase dose of metoprolol to 100mg bid, continue dig, saline bolus, and prn cardizem January 29: Patient seen examined, no acute overnight events, patient doing well, HR improved but still not at goal, pleural microbiology no growth so far. Patiento n rocephin and zithromax for pna and UTI. Diarrhea improved with loperamide, cdiff is negative patient echo shows normal lvef, and mild pulm htn, Pt is sitting comfortably in bed, tolerating po diet well, anxious to go home. HJR still high, increase dose of metoprolol to 150mg bid. plan to d/c home vs snf in AM if HR improves and no other issues. January 30: The patient seen examined, no acute overnight issues, sitting comfortably in bed, unfortunately her HR is still not under good control, Her baseline HR is improved but HR goes up with minimal activity, even talking makes her HR go to 130s. She remains on room air, Her echo reviewed, cvp is raised, but clinically she does not appear fluid overloaded. Her WBC count is up today, her CXR ordered which shows possible infiltrate and recurrence of pna on the left lower lobe. Antibiotics changed to zosyn and vancomycin now. Patient started on cardizem 30mg po q8 for better rate control. will check tsh, t3 and t4, repeat blood cultures, check procalcitonin. Pt not ready for discharge. January 31: Patient seen examined, no acute overnight events, HR better today, She will start on multaq today, this was a medication she was supposed to start f or uncontrolled HR by her EP physician as outpatient. The patients WBC count is better, but her LFt is slightly worse. The patient underwent a USG gall bladder this AM which was negative for obstructive lestions, only some sludge. Patient his much more tired this AM and sob on activity, repeat CXR shows worsening effusions as well as new right sided effusion. The patient is + 9L since admission. I think there is fluid overload from CHF which is contributing to effusion and shortness of breath Will give one dose of lasix today and see how she does UA shows resolved UTI. Pt continues to be on zosy and vanco for PNA Mg low will give 4Gm IV today reviewed last notes from PCP and vice provost. February 01: Patient seen examined, no acute overnight events, pt a bit better than yesterday, has persistant fluid in the left pleural side, and mild on the right side, did respond to diuresis, will give lasix twice daily today wbc wnl, remiains off oxygen microbiology neg except uti patient is positive 11L, by error her half ns was still going on, which is discontinued today. Patient hr much better controlled, she seems to be set at a basal rate of 70 on her pacemaker and is doing well at this rate, will decrease the dose of metoprlol to 100mg bid, she is off cardizem, she is taking 200mg bid of multaq and is supposed to take 400mg bid, she had nausea when she took the full dose, plan is to gradually go up to full dose as she tolerates The patient denies any acute complaints. Pertinent ROS: Denies headache, dizziness Denies chest pain, palpitations Denies cough, but has sob with activity. Denies abdominal pain, nausea or vomiting. - Constitutional Vitals: Vital Signs Temp Pulse Resp BP Pulse Ox 97.4 F 71 19 140/75 95 02/01/17 07:38 02/01/17 08:00 02/01/17 08:00 02/01/17 07:38 02/01/17 08:00 Period Temp Pulse Resp BP Sys/[place] Pulse Ox Last 24 Hr 97.4 F-98.4 F 70-81 16-24 104-140/68-82 90-97 Intake and Output 01/31/17 02/01/17 02/01/17 21:59 05:59 13:59 Intake Total 250 / 250 350 / 350 1500 / 1500 Output Total 1250 / 1250 250 / 250 Balance -1000 / -1000 350 / 350 1250 / 1250 Weight 120 lb 8 oz Intake & Output: Intake & Output 01/31/17 02/01/17 02/01/17 21:59 05:59 13:59 Intake Total 250 / 250 350 / 350 1500 / 1500 Output Total 1250 / 1250 250 / 250 Balance -1000 / -1000 350 / 350 1250 / 1250 Weight 120 lb 8 oz Intake: IV 50 / 50 50 / 50 1000 / 1000 Sodium Chloride 0.45% 1, 1000 / 1000 000 ml @ 50 mls/hr IV . Q20H [facility] Rx#:[id number] Zosyn 3.375 gm In 50 / 50 50 / 50 Dextrose 5% in Water 50 ml @ 100 mls/hr IV Q6H [place] Rx#:[id number] Oral 200 / 200 300 / 300 500 / 500 Output: Void Amount 1250 / 1250 250 / 250 Other: Meal Dinner Breakfast Percent of Meal Consumed 50% 75% Feeding Ability Independent # Voids 1 # Bowel Movements 1 Exam: Constitutional; Afebrile, cooperative, alert, not in distress. Eyes- No icterus, , No periorbital swelling Ears- Ext ear normal, hearing normal to conversation. Neck- Midline trachea, supple Respiratory system: Air Entry dimished on left base, No crackles or wheezing, no rhonchi. CVS- Rate rhythm regular, S1,S2 heard, no gallop, no rub. (paced rhythm) Abdomen- Soft nontender abdomen, no organomegaly, no tenderness, no guarding or rigidity, SUPPORT ANALYST- AOOx3, moving all extremities, no gross focal deficit noted. Medical - PN: Obj Da - Labs CBC & Chem 7: 02/01/17 04:19 02/01/17 04:19 Labs: Abnormal Lab Results 02/01/17 02/01/17 02/01/17 04:19 04:19 04:19 WBC RBC 3.56 L Hgb 11.1 L Hct 32.3 L RDW 15.4 H Gran % Lymph % (Auto) 10.7 L Gran # Lymph # 1.1 L [place] # 1.1 H PT 33.7 H INR 3.2 H Carbon Dioxide 21 L Creatinine Glucose 135 H Magnesium GGT 135 H AST 41 H ALT 48 H Alkaline Phosphatase 220 H NT-Pro-B Natriuret Pep Albumin 2.8 L Albumin/Globulin Ratio 0.9 L Urine RBC Ur Squamous Epith Cells 01/31/17 01/31/17 01/31/17 04:19 04:19 04:19 WBC RBC 3.70 L Hgb 11.7 L Hct 34.0 L RDW 15.2 H Gran % Lymph % (Auto) 13.3 L Gran # Lymph # 1.2 L [place] # PT 35.8 H INR 3.4 H Carbon Dioxide 20 L Creatinine 0.5 L Glucose 153 H Magnesium 1.5 L GGT 146 H AST 65 H ALT 55 H Alkaline Phosphatase 245 H NT-Pro-B Natriuret Pep Albumin 3.1 L Albumin/Globulin Ratio Urine RBC Ur Squamous Epith Cells 01/30/17 01/30/17 01/30/17 14:38 07:46 03:57 WBC RBC Hgb Hct RDW Gran % Lymph % (Auto) Gran # Lymph # [place] # PT 26.2 H INR 2.3 H Carbon Dioxide Creatinine Glucose Magnesium GGT AST ALT Alkaline Phosphatase NT-Pro-B Natriuret Pep 3952.0 H Albumin Albumin/Globulin Ratio Urine RBC 3 H Ur Squamous Epith Cells 13 H 01/30/17 01/30/17 03:47 03:47 WBC 11.9 H RBC Hgb Hct RDW 15.7 H Gran % 84.7 H Lymph % (Auto) 10.1 L Gran # 10.1 H Lymph # 1.2 L [place] # PT INR Carbon Dioxide 19 L Creatinine 0.4 L Glucose 163 H Magnesium 1.5 L GGT 119 H AST 59 H ALT 53 H Alkaline Phosphatase 207 H NT-Pro-B Natriuret Pep Albumin Albumin/Globulin Ratio Urine RBC Ur Squamous Epith Cells Meds: Medications Acetaminophen (Tylenol) 650 mg PO Q6HP PRN PRN Reason: PAIN/FEVER > 101 Last Admin: 02/01/17 07:57 Dose: 650 mg Acetaminophen/Hydrocodone Bitart ([place] 5/325mg) 1 tab PO Q4HP PRN PRN Reason: Pain Last Admin: 02/01/17 07:57 Dose: 1 tab Albuterol Sulfate (Ventolin) 2.5 mg NEB Q2HP PRN PRN Reason: Shortness Of Breath Atorvastatin Calcium (Lipitor) 20 mg PO HS [facility] Last Admin: 01/31/17 20:42 Dose: 20 mg Calcitonin [place] (Miacalcin) 1 spray NS DAILY [facility] Last Admin: 02/01/17 07:58 Dose: Not Given Calcium Carbonate/Glycine (Tums) 1,000 mg CHEWED Q4HP PRN PRN Reason: Dyspepsia Last Admin: 01/30/17 10:45 Dose: 1,000 mg Calcium/Vitamin D (Calcium W/Vit D3) 500 mg PO DAILY [facility] Last Admin: 02/01/17 08:14 Dose: 500 mg Dextrose (Dextrose 50%) 0 ml IV UD PRN PRN Reason: Hypoglycemia Diagnostic Test (Pha) (Accu-Chek) 1 each FS ACHS [facility] Last Admin: 02/01/17 07:16 Dose: 1 each Digoxin (Lanoxin) 125 mcg PO DAILY@1400 [facility] Last Admin: 01/31/17 15:35 Dose: 125 mcg Docusate Sodium (Colace) 100 mg PO BID PRN PRN Reason: Constipation Last Admin: 01/31/17 20:42 Dose: 100 mg Furosemide (Lasix) 40 mg IV ONCE ONE Stop: 02/01/17 16:58 Piperacillin Sod/Tazobactam (Sod 3.375 gm/ Dextrose) 50 mls @ 100 mls/hr IV Q6H [facility] Last Admin: 02/01/17 06:23 Dose: 100 mls/hr Vancomycin HCl 750 mg/ Sodium (Chloride) 250 mls @ 250 mls/hr IV Q12H [facility] Last Admin: 02/01/17 09:53 Dose: 250 mls/hr Insulin Human Lispro (Humalog) 0 unit SQ [facility] PRN Reason: Protocol Last Admin: 02/01/17 07:19 Dose: 1 unit Lidocaine (Lidoderm) 0 patch TOPICAL DAILY@1000 PRN PRN Reason: Pain Last Admin: 01/29/17 20:04 Dose: 2 patch Magnesium Hydroxide (Milk Of Magnesia) 30 ml PO DAILYP PRN PRN Reason: Constipation Magnesium Oxide (Magnesium Oxide) 400 mg PO BID [facility] Last Admin: 02/01/17 07:58 Dose: 400 mg [facility] Last Admin: 02/01/17 07:58 Dose: 500 mg Metoprolol Tartrate (Lopressor) 100 mg PO BID [facility] Last Admin: 02/01/17 08:35 Dose: 100 mg Naloxone HCl (Narcan) 0.1 mg IV Q2MIN PRN PRN Reason: Opiate Reversal Ondansetron HCl (Zofran) 4 mg IV Q6HP PRN PRN Reason: Nausea And Vomiting Last Admin: 01/31/17 13:42 Dose: 4 mg Forteo (Teriparatide ) Injection 20 Mcg/Dose 1 dose SC DAILY [facility] Last Admin: 02/01/17 07:59 Dose: 1 dose Dronedarone (Multaq) (400mg Tablet) 0.5 dose PO BID [facility] Last Admin: 02/01/17 07:59 Dose: 0.5 dose Sodium Chloride (Saline Flush) 10 ml IV Q8 [facility] Last Admin: 02/01/17 06:23 Dose: Not Given Vancomycin HCl (Vancomycin Per Pharmacy) 1 order IV UD [facility] Vitamin B Complex (Vitamin B Complex) 1 cap PO DAILY [facility] Last Admin: 02/01/17 08:14 Dose: 1 cap Vitamin D (Vitamin D3) 1,000 unit PO BID [facility] Last Admin: 02/01/17 08:15 Dose: 1,000 unit Medical - PN: A/P - Time Spent With Patient Total time spent is greater than 50% in coordination of care (as documented) at patient's floor/unit and/or counseling patient: - Narrative A/P Narrative: UTI: Ecoli shah sensitive, on zosyn now (zosyn is for pna, but will cover UTI) repeat ua neg, CHF/ Fluid overload: Positive 11L since admission, will start diuresis, 40mg lasix bid today, d/c IVF. PNA with Effusion: effusion recurs,CXR likely atelectasis vs pna, on vanco and zosyn, microbiology neg so far. Diarrhea: etiology? meds related, off imodium, no longer an issue, on mag oxide for low mg, cdiff neg Hypomagesemia: stable, monitor Pleural effusion: exudative effusion, on broad spectrum abx, microbiology neg, CHF is also playing a role in repeated fluid accumulation. IV lasix. Altered mental status: resolved. Acute Kidney Injury: Resolved Diabetes: continue sliding scale insulin, resume home meds at discharge Atrial fibrillation: presently on metoprolol 100mg bid, (dose decerased today), . multaq 200mg bid, and digoxin, Cardizem stopped. . Code full Diabetic Diet. Medical - PN: Qual - VTE Deep Vein Thrombosis/Pulmonary Embolism Present on Admission: No
[2017-02-01] MEDS: DIGOXIN 125 MCG TABLET PO SCH (14:24)
[2017-02-01] MEDS ORDERED: ONDANSETRON 4 MG/2 ML VIAL IV PRN (16:09)
[2017-02-01] MEDS ORDERED: ALBUTEROL SULFATE 2.5 MG/3 ML NEBULIZER NEB PRN (16:09)
[2017-02-01] MEDS ORDERED: MAGNESIUM HYDROXIDE 30 ML ORAL.SUSP PO PRN (16:09)
[2017-02-01] MEDS ORDERED: HYDROcodone/APAP 5/325MG TABLET PO PRN (16:09)
[2017-02-01] MEDS ORDERED: DOCUSATE SODIUM 100 MG CAPSULE PO PRN (16:09)
[2017-02-01] MEDS ORDERED: VANCOMYCIN PER PHARMACY IV SCH (16:09)
[2017-02-01] MEDS ORDERED: ACETAMINOPHEN 325 MG TABLET PO PRN (16:09)
[2017-02-01] MEDS ORDERED: NALOXONE HCL 0.4 MG/ML VIAL IV PRN (16:09)
[2017-02-01] MEDS ORDERED: DEXTROSE 50% 50 ML VIAL IV PRN (16:09)
[2017-02-01] MEDS ORDERED: LIDOCAINE PATCH TOPICAL PRN (16:09)
[2017-02-01] MEDS ORDERED: CALCIUM CARBONATE 500 MG TAB.CHEW CHEWED PRN (16:09)
[2017-02-01] MEDS ORDERED: ATORVASTATIN 20 MG TABLET PO SCH (21:00)
[2017-02-02] MEDS: PIPERACILLIN SODIUM/TAZOBACTAM 3.375 GM in DEXTROSE 5% IN WATER 50 ML IV SCH ×3 (00:11→14:45)
[2017-02-02] MEDS: 0.9 % SODIUM CHLORIDE 10 ML SYRINGE IV SCH (05:47)
[2017-02-02 06:38] LABS: Basophils # (Auto) 0 K/mcL (0.0-0.3); Basophils % (Auto) 0.4 % (0.0-2.0); Eosinophils # (Auto) 0.2 K/mcL (0.0-0.7); Eosinophils % (Auto) 2.2 % (0.0-7.0); Granulocytes % (Auto) 70.6 % (38.0-78.0); Lymphocytes # (Auto) 1.4 K/mcL (1.5-4.8); Lymphocytes % (Auto) 15.5 % (15.5-49.0); Mean Cell Volume 93.3 fL (80.0-100.0); Mean Corpuscular HGB Conc 35.2 g/dL (31.0-36.0); Mean Corpuscular Hemoglobin 32.8 pg (26.0-34.0); Monocytes % (Auto) 11.3 % (1.0-12.0); Platelet Count 238 K/mcL (140-440); RBC 3.17 M/mcL (4.00-5.20); Red Cell Distribution Width 15.5 % (11.5-14.5)
[2017-02-02 07:00] LABS: ALT/SGPT 30 U/l (0-40); Albumin 2.8 gm/dL (3.2-5.2); Albumin/Globulin Ratio 1.1 (1.0-2.3); Alkaline Phosphatase 166 U/L (39-117); Bilirubin,Direct < 0.2 mg/dL (0.0-0.3); Blood Urea Nitrogen 13 mg/dl (8-23); Gamma Glutamyl Transpeptidase 103 U/L (5-36); Magnesium 1.4 mg/dL (1.6-2.5); Uric Acid 3.8 mg/dL (2.5-8.0)
[2017-02-02] MEDS: INSULIN LISPRO 1 UNIT/0.01 ML UNIT SQ SCH ×2 (08:01→12:29)
[2017-02-02] MEDS: metFORMIN 500 MG TABLET PO SCH (08:04)
[2017-02-02] MEDS ORDERED: FORTEO SC SCH (09:00)
[2017-02-02] MEDS ORDERED: CALCIUM W/VIT D3 500 MG TABLET PO SCH (09:00)
[2017-02-02] MEDS ORDERED: VITAMIN B COMPLEX 1 CAPSULE PO SCH (09:00)
[2017-02-02] MEDS ORDERED: CALCITONIN NASAL SPRAY 3.7ML BOTTLE NS SCH (09:00)
[2017-02-02] MEDS: VITAMIN D3 1,000 UNIT TABLET PO SCH (09:36)
[2017-02-02] MEDS: MAGNESIUM OXIDE 400 MG TABLET PO SCH (09:36)
[2017-02-02] MEDS: METOPROLOL TARTRATE 50 MG TABLET PO SCH (09:37)
[2017-02-02] MEDS: DRONEDARONE (MULTAQ) 400MG TABLET PO SCH (09:38)
[2017-02-02] MEDS ORDERED: VANCOMYCIN 1,000 MG in 0.9 % SODIUM CHLORIDE 250 ML IV SCH (10:00)
[2017-02-02] MEDS: VANCOMYCIN 750 MG in 0.9 % SODIUM CHLORIDE 250 ML IV SCH (11:13)
--- NOTE | 2017-02-02 13:45 | Discharge Summary ---
Medical - DS: Prov Patient information: Note initiated : 02/02/17 at 1:30 pm Service Date, if different from initiated Date: [] Patient: Debby Perez 86 y/o F admitted on 01/24/17 for Weakness, Altered Mental Status, Stroke Symptoms. Chief Complaint: [] Date of admission: 01/24/17 19:34 Discharge date: 02/02/17 Primary care physician: Avis Kincaid phone #[phone] Admitting clinician: Mary Jane Davis Attending physician on discharge: Mary Jane Davis Medical - DS: Meds - Discharge Medications Prescriptions: Albuterol Sulfate [Proair Hfa] 8.5 gm IH QIDP PRN #1 [id number] PRN Reason: Shortness Of Breath Or Wheezing Amoxicillin/Potassium Clav [Augmentin] 875 mg PO Q12H #10 tablet Furosemide [Lasix] 20 mg PO DAILY PRN #15 tablet PRN Reason: Edema Lidocaine [Lidoderm] 1 patch TOPICAL DAILY@1000 PRN #30 patch PRN Reason: Pain Magnesium Oxide [Magnesium] 500 mg PO BID #1 metFORMIN [Glucophage] 500 mg PO BID #1 Metoprolol Tartrate 100 mg PO BID #1 tab Warfarin [Coumadin] 2.5 mg PO DAILY #1 Active and Home Medications: Home Medications Atorvastatin [Lipitor] 20 mg PO HS 09/07/16 [History Confirmed 01/24/17 Last Taken Unknown] Digoxin [Lanoxin] 125 mcg PO DAILY 09/07/16 [History Confirmed 01/24/17 Last Taken 01/24/17] HYDROcodone/APAP 5/325MG [[place] 5/325Mg] 1 tab PO Q4HP PRN 09/07/16 IF NEEDED Magnesium Oxide [Magnesium] 250 mg -- increase to 400-500 mg twice a day for low magnesioum Metoprolol Tartrate 50 mg -- increase to 100 mg twice a day Sulfamethoxazole/Trimethoprim [Bactrim Ds Tablet] --STOPPED Tolterodine Tartrate [Detrol LA] 4 mg -- discontinued Warfarin [Coumadin] 6 mg PO DAILY 09/07/16 -- change to 2.5 mg per day - have PCP ck INR in 1-2 days metFORMIN [Glucophage] 500 mg PO -- decreased to twice a day Ascorbic Acid [Vitamin C] 1,000 mg PO DAILY 01/24/17 [History Confirmed Last Taken 01/24/17] Calcium/Mag Oxide/Vitamin D3 [Coral Calcium 1,000 mg Cap] 1 each PO DAILY [History Confirmed 01/24/17 Last Taken 01/24/17] Chromium Picolinate 1 tab PO DAILY 01/24/17 [History Confirmed 01/25/17 Last Taken Unknown] Fish Oil/Dha/Epa [Fish Oil 1,200 mg Fish Oil] 1 each PO BID 01/24/17 [History Confirmed 01/24/17 Last Taken 01/24/17] Flaxseed Oil [Flax Seed Oil] 1,000 mg PO DAILY 01/24/17 [History Confirmed 01/24 Last Taken 01/24/17] Ginkgo Biloba 60 mg PO DAILY 01/24/17 [History Confirmed 01/24/17 Last Taken ] Glucosamine Sulfate 1 tab PO DAILY 01/24/17 [History Confirmed 01/25/17 Last Taken Unknown] Lecithin 1,200 mg PO DAILY 01/24/17 [History Confirmed 01/24/17 Last Taken 01/24] Ubidecarenone [Co Q-10] 200 mg PO DAILY 01/24/17 [History Confirmed 01/24/17 Last Taken Unknown] Vitamin B Complex Vit C No.4 [Super B Complex] 1 tab PO DAILY 01/24/17 [History Confirmed 01/25/17 Last Taken 01/24/17] Vitamin D3 1,000 unit PO DAILY 01/24/17 [History Confirmed 01/24/17 Last Taken Unknown] Vitamin E Acetate [Vitamin E] 400 unit PO DAILY 01/24/17 [History Confirmed Last Taken 01/24/17] Teriparatide [Forteo] 20 mcg SQ DAILY 01/25/17 [History Confirmed 01/25/17 Last Taken Unknown] please start Multaq ( dronedarone 400 mg 1/2 tab) twice a day to control atrial fibrillation Medical - DS: Hosp Hospital course: Mrs. Perez is a 86 year old female January 24, 2017:Chief complaint: weakness ,depressed level of consciousness, dysuria History of present illness: Ms. Perez is a 86 year old female is sent to emergency room by her and daughters. hey report that she really has not been doing very well since November of this year, when she was admitted to [facility], [place] with compression fractures of her spine. She apparently underwent several vertebral plasty procedures, and ultimately was sent to [place] for transition care. She improved somewhat, but then apparently was diagnosed with urinary tract infection about 4 days ago, and was started on Bactrim. Her family says she really has just not been doing well since then, and has had decreased oral intake and increased fatigue This evening she was walking to dinner with her family's assistance, and suddenly just could not stand up anymore, and slid down to the floor. They report she sort of slumped over and they really couldn' t get much of a response out of her for several minutes. They then called 911. The ER M.D. reports that the ambulance crew set her initial O2 saturation was 80 % on room air. However this increased to normal by the time of arrival at the ER. ER evaluation shows pyuria and also suggestive of a left base pneumonia. She did have a CT scan of her brain which did not show any acute findings. the patient is awake, but often looks to her for answers, and seems very fatigued. She says she has not been able to get warm for the last couple of days. She also had a significant headache earlier today. She has had a cough for the last 1-2 months, which is nonproductive. Her reports every now and then she grabs the left side of her abdomen and complains of sharp pain. She reports occasional palpitations and occasional nausea. Her reports that she has alternating diarrhea and constipation, with her last bowel movement yesterday. hospital course: the patient was admitted and started on IV fluids and empiric antibiotics. She has gradually and steadily improved She remains rather weak, but is able to walk with a walker. She declines transfer to a rehabilitation center, and instead would rather return home with her family. -her urine culture -we did discover that she has significant vaginal prolapse, and apparently has had this for years. This may be contributing to recurrent bladder infections, and addition to postmenopausal changes. -er chest x-ray continued to show left lower lobe pneumonia as well as left pleural effusion. She underwent thoracentesis, 1.2 L, and this indicates an exudative effusion. Pleural fluid culture is negative so far. The patient was initially treated with IV Zosyn andZithromax, and then changed to Rocephin. however, 2 days later, her chest x-ray looked worse at the left base,so Rocephin was discontinued and antibiotics were changed to Zosyn plus vancomycin. -there were several days where her intermittent atrial fibrillation recurred, with a rapid rate. Initially her digoxin level was supratherapeutic. Ultimately , we increased her metoprolol and added back digoxin, and then added diltiazem After discussion with her machine welder, multaq was also added, and diltiazem was held. magnesium has continued to run low and has required repeated replacement. today, the patient says she is feeling pretty well. She is able to walk in the halls with her walker. She feels she is eating and drinking better than before. She has minimal cough. She has been somewhat anxious to return home, and she and her family have declined transfer to a rehabilitation facility even though she might benefit from ongoing therapy. Clinically, she looks so much better, that I think she is ready for discharge. The family expressed somereservation about whether or not she would continue to do well when switched from IV over to oral antibiotics. But I suspect she should do okay. They ultimately decided they would like to take her home today. Otherwise, the patient denies subjective fever or chills, headaches or dizziness , chest pain or palpitations She reports only mild dyspnea with exertion. She denies significant abdominal pain or back pain currently. She denies dysuria. on exam, she is awake and alert, smiling and talkative. Neck is supple without obvious lymphadenopathy or JVD. Cardiac exam shows regular rate and rhythm lung exam shows decreased breath sounds at the bases, more so on the left than the right. No crackles or wheezing are heard. abdomen is soft and nontender. Extremities: Ankles are a bit puffy, but otherwise there is no significant edema. neurologic exam: Is grossly nonfocal. assessment and plan: #1. UTI: Escherichia coli, which was resistant to Bactrim nd tetracycline, but otherwise pansensitive. This will be covered by oral Augmentin. urinalysis from January 30 showed no leukocyte esteras eor nitrites. #2.CHF/ Fluid overload: Positive 11L since admission, IV fluids were discontinued. hort-term Lasix was ordered. #3.PNA with Effusion: effusion recurred,CXR likely atelectasis vs pna. clinically, the patient is improving. She continues to work with her spirometer and deep breathing and coughing. White blood cell count is back to normal. she will discontinue IV antibiotics and start her on oral Augmentin. #4.GI. -Diarrhea: etiology? meds related, off imodium, no longer an issue, , cdiff neg -lFTs were elevated, but are improving. #5. Hypomagnesemia. Continue to replace orally. #6.Altered mental status: resolved. #7.Acute Kidney Injury: Resolved #8.Diabetes: glucoses are reasonably well-controlled, with the last 3 ranging from 111-166. I have cut her metformin down to 500 mg twice a day. Blood sugars should be monitored once she gets home Her oral intake is still not optimal. #9.Atrial fibrillation: presently on metoprolol 100mg bid, (dose decerased today ),. multaq 200mg bid, and digoxin, Cardizem stopped. . she currently appears to be paced at 70. #10Code: full approximately 40 minutes was spent today, reviewing patient's test results, interviewing and examining her, reviewing plan of care with the patient as well as with her familyand nursing staff, and writing orders. Discharge diagnosis: left lower lobe pneumonia, UTI, failure to thrive - Time Spent with Patient Total time spent providing and/or coordinating discharge services: Greater than 30 minutes Medical - DS: Exam - Constitutional Vitals: Vital Signs Temp Pulse Resp BP BP BP Pulse Ox 02/02/17 11:54 98.1 F 16 133/76 92 02/02/17 07:38 71 02/02/17 07:22 98.3 F 18 123/74 90 02/02/17 04:00 97.9 F 71 18 131/71 92 02/01/17 23:38 98.9 F 76 16 129/75 92 02/01/17 20:00 98.3 F 70 18 137/81 90 02/01/17 15:11 139/85 02/01/17 15:06 98.4 F 17 139/85 98 Intake and Output 02/01/17 02/02/17 02/02/17 21:59 05:59 13:59 Intake Total 410 / 410 350 / 350 1150 / 1150 Output Total 850 / 850 Balance -440 / -440 350 / 350 1150 / 1150 Intake: IV 50 / 50 50 / 50 Zosyn 3.375 gm In 50 / 50 50 / 50 Dextrose 5% in Water 50 ml @ 100 mls/hr IV Q6H [facility] Rx#:[id number] Oral 360 / 360 300 / 300 1150 / 1150 Output: Void Amount 850 / 850 Other: Meal Dinner Breakfast Percent of Meal Consumed 50% 75% Feeding Ability Independent # Voids 1 Weight 121 lb 3.2 oz Medical - DS: Data Labs on day of discharge: Labs from last 24 hours 02/02/17 02/02/17 02/02/17 08:00 05:00 05:00 WBC RBC Hgb Hct MCV MCH MCHC RDW Plt Count MPV Gran % Lymph % (Auto) [place] % (Auto) Eos % (Auto) Baso % (Auto) Gran # Lymph # [place] # Eos # Baso # PT 29.4 H INR 2.7 H Sodium 137 Potassium 4.2 Chloride 102 Carbon Dioxide 25 Anion Gap 10.0 BUN 13 Creatinine 0.6 GFR Calculation 84 Glucose 104 Uric Acid 3.8 Calcium 9.1 Phosphorus 3.0 Magnesium 1.4 L Total Bilirubin 0.4 Direct Bilirubin < 0.2 GGT 103 H AST 19 ALT 30 Alkaline Phosphatase 166 H Lactate Dehydrogenase 130 Total Protein 5.4 L Albumin 2.8 L Globulin 2.6 Albumin/Globulin Ratio 1.1 Triglycerides 89 Vancomycin Trough 18.6 H 02/02/17 05:00 WBC 8.7 RBC 3.17 L Hgb 10.4 L Hct 29.6 L MCV 93.3 MCH 32.8 MCHC 35.2 RDW 15.5 H Plt Count 238 MPV 7.6 Gran % 70.6 Lymph % (Auto) 15.5 [place] % (Auto) 11.3 Eos % (Auto) 2.2 Baso % (Auto) 0.4 Gran # 6.2 Lymph # 1.4 L [place] # 1.0 H Eos # 0.2 Baso # 0 PT INR Sodium Potassium Chloride Carbon Dioxide Anion Gap BUN Creatinine GFR Calculation Glucose Uric Acid Calcium Phosphorus Magnesium Total Bilirubin Direct Bilirubin GGT AST ALT Alkaline Phosphatase Lactate Dehydrogenase Total Protein Albumin Globulin Albumin/Globulin Ratio Triglycerides Vancomycin Trough Preliminary micro results at discharge 01/30/17 09:09 Blood Culture - Preliminary Blood 01/30/17 09:14 Blood Culture - Preliminary Blood Intake and output measurements indicate that she may be about 12 L ahead. Weight has increased from about 112 pounds up to 121 pounds urinalysis from Januaryhowed pH of 7.0, specific gravity 1.015, 3 red cells, 13 squamous epithelial cells, negative leukocyte esterase, negative nitrites 4 sets of blood cultures have been negative. C. difficile screens were negative 2 -urine culture grew Escherichia coli which is resistant to tetracycline and Bactrim, but otherwise pansensitive MRSA screenwas negative. pleural fluid showed a few mononuclear cells and moderate polys, but no organisms. There is no growth after 2 days. Chest x-ray from February 01, showed heart moderately enlarged pacemaker leads in place. Pulmonary vessels mildly distended. Moderate left pleural effusion and consolidated collection in the left lower lobe and lingula, unchanged. Small right pleural effusion and infiltrate or atelectasis in the right base, unchanged. CHF improved. Medical - DS: A/P - Patient/Caregiver Discharge Instructions Activity: increase activity as tolerated Diet: Low Sodium (2gm), Consistent Carbohydrate Additional Instructions: 1. Please take antibiotics as prescribed. Please call your doctor if she developes fever, worsening cough, worsening shortness of breath, or are otherwise declining. #2. Please pay close attention to the changes in your medications. -I have added an albuterol inhaler which she may want to use 2-3 times a day until your lungs are back to normal. -Antibiotics to take twice a day with food. -Lidocaine patches if needed for back pain -We like to increase her magnesium supplement to 400 or 500 mg twice a day. - Decrease the metformin dose to 500 mg twice a day and your metoprolol has been increased to 100 mg twice a day -Warfarin has been decreased to 2.5 mg a day. This level will need to be checked in the next 1-2 days with your regular doctor. - I discontinued the tolterodine, for your bladder, as she did not seem to need this year. -antibiotic sulfamethoxazole was also stopped. -your heart doctor recommended that we start a new medication called Multaq ( dronedarone) 400 mg take 1/2 tab twice a day 3. Home Health has been ordered for you. They should contact you within 48 hours after discharge. If you do not hear from them please call at . Prescriptions: Albuterol Sulfate [Proair Hfa] 8.5 gm IH QIDP PRN #1 hfa.[id number] PRN Reason: Shortness Of Breath Or Wheezing Amoxicillin/Potassium Clav [Augmentin] 875 mg PO Q12H #10 tablet Furosemide [Lasix] 20 mg PO DAILY PRN #15 tablet PRN Reason: Edema Lidocaine [Lidoderm] 1 patch TOPICAL DAILY@1000 PRN #30 patch PRN Reason: Pain Magnesium Oxide [Magnesium] 500 mg PO BID #1 metFORMIN [Glucophage] 500 mg PO BID #1 Metoprolol Tartrate 100 mg PO BID #1 tab Warfarin [Coumadin] 2.5 mg PO DAILY #1 Other Amb Orders: Fall Risk Location: Determined By Patient Physical Therapy at Discharge - [facility] Location: Determined By Patient - Problem Maintenance (1) SIRS (systemic inflammatory response syndrome) Status: Acute (2) Spinal stenosis at L4-L5 level Status: Chronic (3) Compression fracture Status: Chronic (4) Atrial fibrillation Status: Chronic Qualifiers: Atrial fibrillation type: paroxysmal Qualified Code(s): I48.0 - Paroxysmal atrial fibrillation (5) Anticoagulation adequate with anticoagulant therapy Status: Chronic (6) Acute renal failure Status: Acute (7) Type 2 diabetes mellitus Status: Chronic (8) Altered mental status Status: Acute (9) Pneumonia Status: Acute Qualifiers: Pneumonia type: aspiration pneumonia (10) Compression fracture Status: Chronic - Follow up Plan Follow up with: Avis Kincaid MD [Primary Care Provider] - (Call on Thursday to set up a hospital follow up appointment in 7-10 days) Disposition: Home Health Service Prognosis: Good Rehab Potential: Good Overall status at discharge: patient is progressing back to baseline Medical - DS: Qual - VTE Deep Vein Thrombosis/Pulmonary Embolism Present on Admission: No
[2017-02-02] MEDS ORDERED: DIGOXIN 125 MCG TABLET PO SCH (14:00)
[2017-02-02] MEDS ORDERED: WARFARIN 2.5 MG TABLET PO ONE (14:00)
== END 2017-02-02 16:55 | disposition home health service (06) | DRG 193 ==
LOC: ED 16:22 → MEDSUR 19:34 → ICU 01-27 11:47 → MEDSUR 02-01 15:50
PROVIDERS: ADMIT Internal Medicine; ATTEND Internal Medicine